=== PATIENT | female | born 1960 | race Caucasian/White ===

== ENCOUNTER 2016-09-06 15:30 | Inpatient (IN) | payer OTHER ==
--- NOTE | 2016-09-06 16:12 | PDOC ---
History of Present Illness - General History Source: Patient Exam Limitations: No Limitations - History of Present Illness Initial Comments: 09/06/16 16:32 Patient is a 56 year old female with a significant past medical history of ESRD (on HD for 15 years), hypertension, hyperlipidemia, schizophrenia, bipolar disorder and anxiety who was sent to the ED from [facility] for SOB. Patient missed her dialysis and desaturated with O2 Sat of 79. Patient was referred to [facility], but brought to [place] by mistake. Allergy - penicillin PCP - Dr. Gunter <Carrie Alston - Last Filed: 09/06/16 18:10> <Jackson Bardales - Last Filed: 09/06/16 18:24> - General Chief Complaint: Shortness of Breath Stated Complaint: Shortness of Breath Time Seen by Provider: 09/06/16 16:10 Past History <Carrie Alston - Last Filed: 09/06/16 18:10> - Past Medical History Anemia: Yes Asthma: No Cancer: No Cardiac Disorders: No CVA: No COPD: No CHF: No Dementia: No Diabetes: No Dialysis: Yes (ESRD,HD) GI Disorders: No Disorders: (PT ON DAILYSIS TIW) HTN: Yes Hypercholesterolemia: Yes Liver Disease: No Psychiatric Problems: Yes (schizophrenia) Seizures: No Thyroid Disease: No - Surgical History Abdominal Surgery: No Appendectomy: No Cardiac Surgery: No Cholecystectomy: No Lung Surgery: No Neurologic Surgery: No Orthopedic Surgery: No - Psycho/Social/Smoking Cessation Hx Anxiety: No Suicidal Ideation: No Smoking History: Never smoked Have you smoked in the past 12 months: No Information on smoking cessation initiated: No 'Breaking Loose' booklet given: 05/30/15 Hx Alcohol Use: No Drug/Substance Use Hx: No Substance Use Type: None Hx Substance Use Treatment: No <Jackson Bardales - Last Filed: 09/06/16 18:24> - Past Medical History Allergies/Adverse Reactions: Allergies Allergy/AdvReac Type Severity Reaction Status Date / Time chlorpromazine Allergy Verified 09/06/16 15:52 haloperidol [From Haldol] Allergy Verified 09/06/16 15:52 haloperidol lactate Allergy Verified 09/06/16 15:52 [From Haldol] penicillamine Allergy Verified 09/06/16 15:52 zinc Allergy Verified 09/06/16 15:52 Home Medications: Ambulatory Orders Acetaminophen [Pain Relief] 325 mg PO QID 09/06/16 Albuterol 0.083% Nebulizer Alejandra [Ventolin 0.083%] 1 neb NEB Q4H 09/06/16 Clozapine 50 mg PO BID 09/06/16 Divalproex *ER* [Depakote *ER* -] 500 mg PO HS 09/06/16 Docusate Sodium [Colace -] 100 mg PO DAILY 09/06/16 Folic Acid/Vit Bcomp,C [Dialyvite Tablet] 1 each PO DAILY 09/06/16 Ipratropium 0.02% Nebulizer [Atrovent] 1 neb NEB QID 09/06/16 Lorazepam 1 mg PO TID 09/06/16 Lorazepam [Ativan] 2 mg IM QID 09/06/16 Melatonin 3 mg PO HS 09/06/16 Pantoprazole Sodium 40 mg PO DAILY 09/06/16 Tramadol HCl 50 mg PO BID 09/06/16 Trazodone HCl 50 mg PO HS 09/06/16 Ziprasidone [Geodon] 80 mg PO BID 09/06/16 Review of Systems - Review of Systems Able to Perform ROS?: Yes Comments:: 09/06/16 16:32 CONSTITUTIONAL: No fever, no chills, no fatigue EYES: No visual changes ENT: No ear pain, no sore throat CARDIOVASCULAR: No chest pain, no palpitations RESPIRATORY: +SOB. No cough GI: No abdominal pain, no nausea, no vomiting, no constipation, no diarrhea GENITOURINARY: No dysuria, no frequency, no hematuria MUSCULOSKELETAL: No back pain, no joint pain, no myalgias SKIN: No rash NEURO: No headache <Carrie Alston - Last Filed: 09/06/16 18:10> *Physical Exam - Vital Signs Last Vital Signs Temp Pulse Resp BP Pulse Ox 97.5 F L 95 H 22 109/69 93 L 09/06/16 15:49 09/06/16 15:49 09/06/16 15:49 09/06/16 15:49 09/06/16 15:49 <Carrie Alston - Last Filed: 09/06/16 18:10> - Vital Signs Last Vital Signs Temp Pulse Resp BP Pulse Ox 97.5 F L 95 H 22 109/69 93 L 09/06/16 15:49 09/06/16 15:49 09/06/16 15:49 09/06/16 15:49 09/06/16 15:49 - Physical Exam Comments: 09/06/16 17:39 EXAMINATION CONSTITUTIONAL: Awake and alert; intermittently agitated; morbidly obese; mildly tachypneic and dyspneic HEAD: Normocephalic; atraumatic EYES: PERRL; EOM intact; + bilateral periorbital edema ENMT: External appears normal; normal oropharynx; + excoriated chin abrasion NECK: Supple; non-tender; no JVD CARD: Muffled S1, S2; no murmurs, rubs, or gallops RESP: Decreased breath sounds bilaterally due to body habitus; no wheezes, rhonchi, or rales ABD: Soft, non-distended; non-tender; no palpable organomegaly, no palpable hernias; + sacral edema EXT: +4 pitting edema to lower extremities and upper extremities b/l; diffusely tender to palpation; AV fistulas noted to the left upper extremity with a palpable thrill distally; distal pulses decreased due to edema SKIN: Warm, dry, ecchymosis to the right anterior chest; + 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 <Jackson Bardales - Last Filed: 09/06/16 18:24> ED Treatment Course - LABORATORY CBC & Chemistry Diagram: 09/06/16 16:21 09/06/16 16:21 <Carrie Alston - Last Filed: 09/06/16 18:10> - LABORATORY CBC & Chemistry Diagram: 09/06/16 16:21 09/06/16 16:21 - RADIOLOGY Radiology Studies Ordered: Category Date Time Status CHEST X-RAY PORTABLE* [RAD] Stat Radiology 09/06/16 16:10 Ordered <Jackson Bardales - Last Filed: 09/06/16 18:24> Medical Decision Making - Medical Decision Making 09/06/16 16:20 A call was placed to Dr. Holm at his service. Awaiting a call back 09/06/16 16:26 Case was discussed with Dr. Aquino. 09/06/16 18:00 A call was placed to Dr. Aquino and case was discussed. 09/06/16 18:10 Dr. Gibson was paged overhead. Dr. Romero called back and case was discussed. <Carrie Alston - Last Filed: 09/06/16 18:10> - Critical Care Time Total Critical Care Time (minutes): 50 Critical Care Statement: The care of this patient involved high complexity decision making to prevent further life threatening deterioration of the patient 's condition and/or to evalute & treat vital organ system(s) failure or risk of failure. - Medical Decision Making 09/06/16 18:21 Patient is a 56-year-old female with history of end-stage renal disease on hemodialysis, schizoaffective disorder, congestive heart failure, diabetes, who is brought in by EMS from [facility] for generalized weakness and difficulty breathing. In the ER, patient is awake and alert, tachypneic and dyspneic, initially normotensive, however mildly hypotensive afterwards, with oxygen saturation of 79-82% on room air, improving to 93% on 4 L via nasal cannula. On initial evaluation, diffuse anasarca is noted with decreased breath sounds bilaterally. Chest x-ray is of poor quality but reveals cardiomegaly, opacification of the left hemithorax and a significant right-sided pleural effusion. Bedside echocardiogram revealed no significant pericardial effusion, however bilateral pleural effusions were noted. CT of chest without contrast shows complete opacification of the left hemithorax and a large right-sided pleural effusion without a significant pericardial effusion. EKG reveals low voltage QRS complexes likely related to body habitus and pleural effusions. CBC reveals mild leukopenia and anemia. CMP reveals potassium of 4.5 and a significantly elevated BNP. Patient will require emergent dialysis due to fluid overload and hypotension. Will admit to the ICU further evaluation and treatment. Dr. Aquino of nephrology consulted and will evaluate the patient promptly. <Jackson Bardales - Last Filed: 09/06/16 18:24> *DC/Admit/Observation/Transfer - Attestations Scribe Attestion: 09/06/16 16:33 Documentation prepared by VINNIE Liu, acting as medical chemist for Jackson Bardales MD. <Carrie Alston - Last Filed: 09/06/16 18:10> - Discharge Dispostion Admit: Yes - Attestations Physician Attestion: 09/06/16 17:39 The documentation was prepared by the scribe under my direct supervision. I have reviewed the documentation which correctly represents the findings, medical decision-making and critical action taken by me. <Jackson Bardales - Last Filed: 09/06/16 18:24> Diagnosis at time of Disposition: Anasarca, Pleural effusion, ESRD (end stage renal disease) on dialysis Hypotension Qualifiers: Hypotension type: unspecified hypotension type Qualified Code(s): I95.9 - Hypotension, unspecified - Referrals Referrals: Yg Delaney [Primary Care Provider] -
[2016-09-06] MEDS ORDERED: FUROSEMIDE 40 MG/4 ML INJECTABLE VIAL IVPUSH ONE (16:47)
[2016-09-06 16:50] LABS: MCH 32.9 pg (25.7-33.7); MCHC 31.4 g/dl (32.0-36.0); MEAN CELL VOLUME 104.8 fl (80-96); MEAN PLT VOLUME 7.1 fl (7.5-11.1); PLATELET COUNT 179 K/MM3 (134-434); RDW 21.7 % (11.6-15.6); WHITE BLOOD COUNT 3.3 K/mm3 (4.0-10.0)
[2016-09-06] MEDS ORDERED: FUROSEMIDE 40 MG/4 ML INJECTABLE VIAL ONE (16:56)
[2016-09-06 17:17] LABS: ALBUMIN 2.8 g/dl (3.4-5.0); CALCIUM 9.8 mg/dL (8.5-10.1); COCKROFT - GAULT 13.447; CREATININE 6.6 mg/dL (0.55-1.02)
[2016-09-06 17:21] LABS: BILIRUBIN,TOTAL 0.4 mg/dL (0.2-1.0); TOT PROT 6.5 g/dl (6.4-8.2); TROPONIN I 0.05 ng/ml (0.00-0.05)
[2016-09-06 18:28] LABS: INR 0.94 (0.82-1.09); PROTHROMBIN TIME (PATIENT) 10.3 SEC (9.98-11.88)
--- NOTE | 2016-09-06 19:00 | CONSULT ---
Consult Consult Specialty:: Nephrology Reason for Consultation:: CALLED STAT FOR ESRD AND FLUID OVERLOAD - History of Present Illness Chief Complaint: sent in from [place] for respiratory distress History of Present Illness: Pt is a 56 year old female with pmhx of ESRD on HD, hyperlipidemia, HTN, schizophrenia, Bipolar and anxiety who was sent to the ER for shortness of breath. She is awake and her mental status is at baseline. I was called to evaluate her for urgent HD as she appeared fluid overloaded. She often refused dialysis. She complains of shortness of breath. She is a poor historian and is confused. She was recently admitted at [facility] for about 3 weeks. She denies chest pain. She denies fevers or chills. She was found to be hypotensive in the ER. She dies have history of pleural effusion that she refused to get tapped while in [facility]. She was hypoxic and required oxygen. She is asking for "Dylan and Alfonzo" candy. She says she is hungry and wants to eat. Pt is not compliant with diet and fluid restriction. 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 Cardio/Vascular: Yes: HTN, Hyperlipdemia Pulmonary: Yes: Other (pleural effusion) Renal/: Yes: Renal Failure (ESRD on HD), Hemodialysis Psych: Yes: Anxiety, Bipolar, Schizophrenia - Past Surgical History Past Surgical History: Yes: AV Fistula/Graft - Alcohol/Substance Use Hx Alcohol Use: No - Smoking History Smoking history: Never smoked Have you smoked in the past 12 months: No - Social History Usual Living Arrangement: [facility] Home Medications - Allergies Allergies/Adverse Reactions: Allergies Allergy/AdvReac Type Severity Reaction Status Date / Time chlorpromazine Allergy Verified 09/06/16 15:52 haloperidol [From Haldol] Allergy Verified 09/06/16 15:52 haloperidol lactate Allergy Verified 09/06/16 15:52 [From Haldol] penicillamine Allergy Verified 09/06/16 15:52 zinc Allergy Verified 09/06/16 15:52 - Home Medications Home Medications: Ambulatory Orders Acetaminophen [Pain Relief] 325 mg PO QID 09/06/16 Albuterol 0.083% Nebulizer Alejandra [Ventolin 0.083%] 1 neb NEB Q4H 09/06/16 Clozapine 50 mg PO BID 09/06/16 Divalproex *ER* [Depakote *ER* -] 500 mg PO HS 09/06/16 Docusate Sodium [Colace -] 100 mg PO DAILY 09/06/16 Folic Acid/Vit Bcomp,C [Dialyvite Tablet] 1 each PO DAILY 09/06/16 Ipratropium 0.02% Nebulizer [Atrovent] 1 neb NEB QID 09/06/16 Lorazepam 1 mg PO TID 09/06/16 Lorazepam [Ativan] 2 mg IM QID 09/06/16 Melatonin 3 mg PO HS 09/06/16 Pantoprazole Sodium 40 mg PO DAILY 09/06/16 Tramadol HCl 50 mg PO BID 09/06/16 Trazodone HCl 50 mg PO HS 09/06/16 Ziprasidone [Geodon] 80 mg PO BID 09/06/16 Family Disease History - Family Disease History Family History: Unable to Obtain Review of Systems Unable to obtain ROS, reason: says no to everything - Review of Systems Constitutional: reports: No Symptoms Eyes: reports: No Symptoms HENT: reports: No Symptoms Neck: reports: No Symptoms Cardiovascular: reports: Edema Respiratory: reports: Cough, SOB Gastrointestinal: reports: No Symptoms Genitourinary: reports: No Symptoms Musculoskeletal: reports: No Symptoms Neurological: reports: No Symptoms Endocrine: reports: No Symptoms Hematology/Lymphatic: reports: No Symptoms Physical Exam Vital Signs: Vital Signs Temperature 97.5 F L 09/06/16 15:49 Pulse Rate 93 H 09/06/16 18:32 Respiratory Rate 24 09/06/16 18:32 Blood Pressure 90/61 09/06/16 18:32 O2 Sat by Pulse Oximetry (%) 93 L 09/06/16 18:32 Constitutional: Yes: Anxious Eyes: Yes: Conjunctiva Clear HENT: Yes: Atraumatic Cardiovascular: Yes: S1, S2 Respiratory: Yes: Diminished, On Nasal O2 Gastrointestinal: Yes: Soft, Abdomen, Obese Renal/: Yes: Incontinence Musculoskeletal: Yes: Muscle Weakness Edema: Yes Edema: LUE: 1+, RUE: 1+, LLE: 2+, RLE: 2+ Integumentary: Yes: Venous Stasis Changes Neurological: Yes: Confusion Psychiatric: Yes: Agitated Labs: Laboratory Tests 09/06/16 09/06/16 09/06/16 16:21 16:21 16:21 WBC 3.3 L D Hgb 10.1 L D Plt Count 179 Sodium 141 Potassium 4.5 D Chloride 100 Carbon Dioxide 30 Anion Gap 11 BUN 28 H D Creatinine 6.6 H Creat Clearance w eGFR 6.52 Random Glucose 67 L D Calcium 9.8 Total Bilirubin 0.4 AST 23 Alkaline Phosphatase 86 Creatine Kinase 96 Troponin I 0.05 B-Natriuretic Peptide 80214.87 H Total Protein 6.5 Albumin 2.8 L Valproic Acid 54.967 Imaging - Results Chest X-ray: Report Reviewed (large left pleural effusion) Cat Scan: Report Reviewed (large left and moderated right pleural effusion. Right renal complex cyst) Problem List - Problems (1) Anasarca Code(s): R60.1 - GENERALIZED EDEMA (2) ESRD (end stage renal disease) on dialysis Code(s): N18.6 - END STAGE RENAL DISEASE Z99.2 - DEPENDENCE ON RENAL DIALYSIS (3) Hypotension Code(s): I95.9 - HYPOTENSION, UNSPECIFIED Qualifiers: Hypotension type: unspecified hypotension type Qualified Code(s): I95.9 - Hypotension, unspecified (4) Pleural effusion Code(s): J90 - PLEURAL EFFUSION, NOT ELSEWHERE CLASSIFIED (5) COPD (chronic obstructive pulmonary disease) Code(s): J44.9 - CHRONIC OBSTRUCTIVE PULMONARY DISEASE, UNSPECIFIED (6) Schizophrenia Code(s): F20.9 - SCHIZOPHRENIA, UNSPECIFIED (7) Bipolar 1 disorder Code(s): F31.9 - BIPOLAR DISORDER, UNSPECIFIED Assessment/Plan Impression 1. ESRD 2. fluid overload 3. complex renal cyst 4. bipolar 5. dyspnea 6. COPD 7. pleural effusion, bilateral 8. anemia 9. anasarca Plan - will arrange for urgent dialysis, called nurse to come in - admit pt to the ICU - cxr and ct reviewed - get echo - keep on tele monitor - will attempt to UF volume - may need HD tomorrow as well - resume [place] meds - case discussed with ER team - case discussed with outside wreath machine tender - renal diet, pt is not compliant with fluid restriction - can use bipap if she becomes hypoxic - will need to obtain records from [facility] pul/critical care eval - will follow pt Dr Aquino
[2016-09-06] MEDS ORDERED: HEPARIN NA (PORCINE) 5,000 UNITS/ML 1ML VIAL IVPUSH ONE (19:12)
[2016-09-06] MEDS: ALBUMIN HUMAN 25% 12.5 GM/50 ML VIAL IVPB SCH ×4 (20:00→22:12)
--- NOTE | 2016-09-06 20:21 | HP ---
Admitting History and Physical - Primary Care Physician PCP: Marek Macias - Admission Chief Complaint: sob History of Present Illness: Pt is a 56 year old female with pmhx of ESRD on HD, hyperlipidemia, HTN, schizophrenia, Bipolar and anxiety who was sent to the ER for shortness of breath. She is awake and her mental status is at baseline. I was called to evaluate her for urgent HD as she appeared fluid overloaded. She often refused dialysis. She complains of shortness of breath. She is a poor historian and is confused. She was recently admitted at [facility] for about 3 weeks. She denies chest pain. She denies fevers or chills. She was found to be hypotensive in the ER. She dies have history of pleural effusion that she refused to get tapped while in [facility]. She was hypoxic and required oxygen. She is asking for "Dylan [employer] Alfon[employer]" candy. She says she is hungry and wants to eat. Pt is not compliant with diet and fluid restriction. 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 Cardiovascular: Yes: HTN, Hyperlipdemia Pulmonary: Yes: Other (pleural effusion) Renal/: Yes: Renal Failure (ESRD on HD), Hemodialysis Psych: Yes: Anxiety, Bipolar, Schizophrenia - Past Surgical History Past Surgical History: Yes: AV Fistula/Graft - Smoking History Smoking history: Never smoked Have you smoked in the past 12 months: No - Alcohol/Substance Use Hx Alcohol Use: No <Marek Macias - Last Filed: 09/07/16 18:21> Home Medications <Dorian Peacock - Last Filed: 09/06/16 23:08> <Marek Macias - Last Filed: 09/07/16 18:21> - Allergies Allergies/Adverse Reactions: Allergies Allergy/AdvReac Type Severity Reaction Status Date / Time chlorpromazine Allergy Verified 09/06/16 15:52 haloperidol [From Haldol] Allergy Verified 09/06/16 15:52 haloperidol lactate Allergy Verified 09/06/16 15:52 [From Haldol] penicillamine Allergy Verified 09/06/16 15:52 zinc Allergy Verified 09/06/16 15:52 - Home Medications Home Medications: Ambulatory Orders Acetaminophen [Pain Relief] 325 mg PO QID 09/06/16 Albuterol 0.083% Nebulizer Alejandra [Ventolin 0.083%] 1 neb NEB Q4H 09/06/16 Clozapine 50 mg PO BID 09/06/16 Divalproex *ER* [Depakote *ER* -] 500 mg PO HS 09/06/16 Docusate Sodium [Colace -] 100 mg PO DAILY 09/06/16 Folic Acid/Vit Bcomp,C [Dialyvite Tablet] 1 each PO DAILY 09/06/16 Ipratropium 0.02% Nebulizer [Atrovent] 1 neb NEB QID 09/06/16 Lorazepam 1 mg PO TID 09/06/16 Lorazepam [Ativan] 2 mg IM QID 09/06/16 Melatonin 3 mg PO HS 09/06/16 Pantoprazole Sodium 40 mg PO DAILY 09/06/16 Tramadol HCl 50 mg PO BID 09/06/16 Trazodone HCl 50 mg PO HS 09/06/16 Ziprasidone [Geodon] 80 mg PO BID 09/06/16 Review of Systems - Review of Systems Eyes: denies: No Symptoms, Blind Spots, Blurred Vision, Double Vision, Eye Pain , Floaters, Photophobia, Recent Change in Vision, Other HENT: denies: No Symptoms, Difficult Swallowing, Ear Discharge, Ear Pain, Epistaxis, Gingival Bleeding, Hearing Loss, Mouth Swelling, Nasal Congestion, Ocular Prosthesis, Throat Pain, Toothache, Ringing in Ears, Other Cardiovascular: denies: No Symptoms, Chest Pain, Edema, Palpitations, Shortness of Breath, Other Respiratory: reports: SOB Gastrointestinal: denies: No Symptoms, Abdominal Pain, Bloating, Constipation, Diarrhea, Dysphagia, Indigestion, Melena, Nausea, Rectal Bleeding, Vomiting, Vomiting Blood, Other Neurological: denies: No Symptoms, Change in LOC, Change in Speech, Confusion, Dizziness, Headache, Incoordination, Numbness, Parasthesia, Pre-Existing Deficit , Seizure, Syncope, Tremors, Unsteady Gait, Weakness, Other <Marek Macias - Last Filed: 09/07/16 18:21> Physical Examination Vital Signs: Vital Signs Temperature 97.5 F L 09/06/16 15:49 Pulse Rate 100 H 09/06/16 21:50 Respiratory Rate 18 09/06/16 21:50 Blood Pressure 86/52 09/06/16 21:50 O2 Sat by Pulse Oximetry (%) 93 L 09/06/16 18:32 <Dorian Peacock - Last Filed: 09/06/16 23:08> Vital Signs: Vital Signs Temperature 97.5 F L 09/06/16 15:49 Pulse Rate 96 H 09/06/16 19:50 Respiratory Rate 18 09/06/16 19:50 Blood Pressure 111/73 09/06/16 19:50 O2 Sat by Pulse Oximetry (%) 93 L 09/06/16 18:32 Constitutional: Yes: No Distress HENT: Yes: Atraumatic Neck: Yes: Supple Cardiovascular: Yes: Regular Rate and Rhythm Respiratory: Yes: Rhonchi Gastrointestinal: Yes: Normal Bowel Sounds Extremities: Yes: WNL Edema: LLE: 1+, RLE: 1+ Neurological: Yes: Alert, Oriented <Marek Macias - Last Filed: 09/07/16 18:21> Problem List - Problems (1) Schizophrenia Code(s): F20.9 - SCHIZOPHRENIA, UNSPECIFIED (2) Bipolar 1 disorder Code(s): F31.9 - BIPOLAR DISORDER, UNSPECIFIED (3) COPD (chronic obstructive pulmonary disease) Code(s): J44.9 - CHRONIC OBSTRUCTIVE PULMONARY DISEASE, UNSPECIFIED (4) Pleural effusion Code(s): J90 - PLEURAL EFFUSION, NOT ELSEWHERE CLASSIFIED (5) Anasarca Code(s): R60.1 - GENERALIZED EDEMA (6) ESRD (end stage renal disease) on dialysis Code(s): N18.6 - END STAGE RENAL DISEASE Z99.2 - DEPENDENCE ON RENAL DIALYSIS <Dorian Peacock Loretta - Last Filed: 09/06/16 23:08> - Problems (1) Anasarca Assessment/Plan: pt will get hd today Code(s): R60.1 - GENERALIZED EDEMA (2) Bipolar 1 disorder Code(s): F31.9 - BIPOLAR DISORDER, UNSPECIFIED (3) ESRD (end stage renal disease) on dialysis Assessment/Plan: n hd dr casillas Code(s): N18.6 - END STAGE RENAL DISEASE Z99.2 - DEPENDENCE ON RENAL DIALYSIS (4) COPD (chronic obstructive pulmonary disease) Assessment/Plan: continue home meds'duo nebs prn Code(s): J44.9 - CHRONIC OBSTRUCTIVE PULMONARY DISEASE, UNSPECIFIED <Marek Macias - Last Filed: 09/07/16 18:21> Assessment/Plan ASSESS: This is a 56 y/o woman w/ Schizo, Bi-polar, anxiety, (non-compliant), HTN, HL, & ESRD on HD who presents now w/ gross V/o in the setting of having missed HD. PLAN: -FiO2 for an SpO2 > 92% -Nebs -HD -RENAL -Clozapine STANDING BID -Ativan STANDING TID -Depakote HS -Trazadone HS -PSYCH -BR -PPI (Renal Fail) <Dorian Peacock - Last Filed: 09/06/16 23:08> Laboratory Tests 09/06/16 09/06/16 09/06/16 16:21 16:21 16:21 WBC 3.3 L D RBC 3.06 L Hgb 10.1 L D Hct 32.1 L MCV 104.8 H MCHC 31.4 L RDW 21.7 H Plt Count 179 MPV 7.1 L Neutrophils % Y Lymphocytes % Y INR 0.94 D Sodium 141 Potassium 4.5 D Chloride 100 Carbon Dioxide 30 Anion Gap 11 BUN 28 H D Creatinine 6.6 H Creat Clearance w eGFR 6.52 Random Glucose 67 L D Calcium 9.8 Total Bilirubin 0.4 AST 23 ALT 17 D Alkaline Phosphatase 86 Creatine Kinase 96 Troponin I 0.05 B-Natriuretic Peptide 40135.87 H Total Protein 6.5 Albumin 2.8 L Valproic Acid 09/06/16 16:21 WBC RBC Hgb Hct MCV MCHC RDW Plt Count MPV Neutrophils % Lymphocytes % INR Sodium Potassium Chloride Carbon Dioxide Anion Gap BUN Creatinine Creat Clearance w eGFR Random Glucose Calcium Total Bilirubin AST ALT Alkaline Phosphatase Creatine Kinase Troponin I B-Natriuretic Peptide Total Protein Albumin Valproic Acid 54.967 Active Medications Generic Name Dose Route Start Last Admin Trade Name Freq PRN Reason Stop Dose Admin Albumin Human 12.5 gm 09/06/16 19:15 Albumin Human 25% IVPB 09/06/16 20:46 Q30M DAYNA Impression 1. ESRD 2. fluid overload 3. complex renal cyst 4. bipolar 5. dyspnea 6. COPD 7. pleural effusion, bilateral 8. anemia 9. anasarca Plan -on hd fluid restriction continue home meds dvt ppx cc time 60 min <Marek Macias - Last Filed: 09/07/16 18:21>
[2016-09-06 20:32] LABS: PLATELET ESTIMATE ADEQUATE (NORMAL)
[2016-09-06 20:33] LABS: ANISOCYTOSIS OCC
[2016-09-06] MEDS ORDERED: ALBUTEROL SO4 0.083% IH SOL 2.5 MG/3 ML VIAL.NEB. NEB PRN (21:00)
--- NOTE | 2016-09-06 21:07 | CONSULT ---
Consult Consult Specialty:: PULM / CCM Referred by:: Dr. Macias Reason for Consultation:: SOB - History of Present Illness Chief Complaint: I want Dylan and Alfonzo's!!! History of Present Illness: Ms. Lucas is a 56 y/o woman, [facility] resident, w/ a long Hx/o Schizo, Bi- polar, anxiety, (non-compliant), HTN, HL, & ESRD (on HD X 15 yrs). The pt was referred to [facility] for SOB in the setting of missing her most recent dialysis. The pt was dropped off here @ [facility] by mistake. ED eval c/w V/ O. Pt brought to ICU for HD. - History Source History Provided By: Medical Record Limitations to Obtaining History: Other (Schizo, Bi-Polar, Anxiety) - Past Medical History LEGAL AID: Yes: Dementia Cardio/Vascular: Yes: HTN, Hyperlipdemia Pulmonary: Yes: Other (pleural effusion) Renal/: Yes: Renal Failure (ESRD on HD), Hemodialysis Psych: Yes: Anxiety, Bipolar, Schizophrenia - Past Surgical History Past Surgical History: Yes: AV Fistula/Graft - Alcohol/Substance Use Hx Alcohol Use: No - Smoking History Smoking history: Never smoked Have you smoked in the past 12 months: No - Social History Usual Living Arrangement: [facility] History of Recent Travel: No Home Medications - Allergies Allergies/Adverse Reactions: Allergies Allergy/AdvReac Type Severity Reaction Status Date / Time chlorpromazine Allergy Verified 09/06/16 15:52 haloperidol [From Haldol] Allergy Verified 09/06/16 15:52 haloperidol lactate Allergy Verified 09/06/16 15:52 [From Haldol] penicillamine Allergy Verified 09/06/16 15:52 zinc Allergy Verified 09/06/16 15:52 - Home Medications Home Medications: Ambulatory Orders Acetaminophen [Pain Relief] 325 mg PO QID 09/06/16 Albuterol 0.083% Nebulizer Alejandra [Ventolin 0.083%] 1 neb NEB Q4H 09/06/16 Clozapine 50 mg PO BID 09/06/16 Divalproex *ER* [Depakote *ER* -] 500 mg PO HS 09/06/16 Docusate Sodium [Colace -] 100 mg PO DAILY 09/06/16 Folic Acid/Vit Bcomp,C [Dialyvite Tablet] 1 each PO DAILY 09/06/16 Ipratropium 0.02% Nebulizer [Atrovent] 1 neb NEB QID 09/06/16 Lorazepam 1 mg PO TID 09/06/16 Lorazepam [Ativan] 2 mg IM QID 09/06/16 Melatonin 3 mg PO HS 09/06/16 Pantoprazole Sodium 40 mg PO DAILY 09/06/16 Tramadol HCl 50 mg PO BID 09/06/16 Trazodone HCl 50 mg PO HS 09/06/16 Ziprasidone [Geodon] 80 mg PO BID 09/06/16 Family Disease History - Family Disease History Family History: Unable to Obtain (Pt is severe Schizo/Bi-Polar/Anxiety & uncooperative.) Physical Exam Vital Signs: Vital Signs Temperature 97.5 F L 09/06/16 15:49 Pulse Rate 99 H 09/06/16 20:20 Respiratory Rate 18 09/06/16 20:20 Blood Pressure 105/67 09/06/16 20:20 O2 Sat by Pulse Oximetry (%) 93 L 09/06/16 18:32 Constitutional: Yes: Anxious, Obese, Poor Hygeine Eyes: Yes: WNL, PERRL HENT: Yes: WNL, Atraumatic, Normocephalic Neck: Yes: WNL, Supple, Trachea Midline Cardiovascular: Yes: WNL, Regular Rate and Rhythm Respiratory: Yes: WNL, Diminished Gastrointestinal: Yes: WNL, Normal Bowel Sounds, Soft, Abdomen, Obese ...Rectal Exam: Yes: Deferred Renal/: Yes: WNL Breast(s): Yes: WNL Musculoskeletal: Yes: WNL Extremities: Yes: Other (l LE w/ venous stasis ulcers.) Edema: Yes Edema: LUE: 1+, RUE: 1+, LLE: 1+, RLE: 1+ Integumentary: Yes: WNL Neurological: Yes: WNL ...Motor Strength: WNL Psychiatric: Yes: WNL, Alert, Agitated Labs: CBC, BMP 09/06/16 16:21 09/06/16 16:21 Imaging - Results Chest X-ray: Image Reviewed (09/06: No ETT, no CVCs, Pulm edema w/ B/L pleural effusions L > R (My Read).) Cat Scan: Image Reviewed (CT Chest 09/06: B/L Pleural effusions L > R.) EKG: Image Reviewed (09/06: NSR in the 90's w/o ectopy, globally flattened T- waves but super low voltage QRS so difficult to read, QTc = 399ms, no acute processes (My Read).) Problem List - Problems (1) Schizophrenia Code(s): F20.9 - SCHIZOPHRENIA, UNSPECIFIED (2) Bipolar 1 disorder Code(s): F31.9 - BIPOLAR DISORDER, UNSPECIFIED (3) COPD (chronic obstructive pulmonary disease) Code(s): J44.9 - CHRONIC OBSTRUCTIVE PULMONARY DISEASE, UNSPECIFIED (4) Pleural effusion Code(s): J90 - PLEURAL EFFUSION, NOT ELSEWHERE CLASSIFIED (5) Anasarca Code(s): R60.1 - GENERALIZED EDEMA (6) ESRD (end stage renal disease) on dialysis Code(s): N18.6 - END STAGE RENAL DISEASE Z99.2 - DEPENDENCE ON RENAL DIALYSIS Assessment/Plan ASSESS: 1. ESRD 2. V/O 3. Gross anasarca 4. B/L pleural effusions 5. SOB 6. COPD 7. Schizo 8. bipolar 9. anemia PLAN: -Admit to ICU for emergent HD -Fio2@ for an SpO2 > 92% -Nebs -HD -Consider back-back HD sessions given multiple missed sessions & heavy pleaural effusions -RENAL -Repeat TTE -Clozapine BID STANDING -ATIVAN TID STANDING -Depakote HS -Trazodone HS -PSYCH -Renal Diet -BR -PPI (Renal Fail) -[facility]
[2016-09-06] MEDS ORDERED: traZODone HCL 50 MG TABLET (FP) PO SCH (22:00)
[2016-09-06] MEDS ORDERED: DIVALPROEX NA *ER* EXTEND REL 500 MG TABLET.SA (FP) PO SCH (22:00)
[2016-09-06] MEDS ORDERED: CLOZAPINE 50 MG PO SCH (22:00)
[2016-09-07 04:55] VITALS: BMI 37.0
[2016-09-07] MEDS: LORazepam 1 MG TABLET PO SCH ×4 (06:09→21:10)
[2016-09-07 07:46] LABS: MCH 33.2 pg (25.7-33.7); MCHC 32.1 g/dl (32.0-36.0); MEAN CELL VOLUME 103.6 fl (80-96); MEAN PLT VOLUME 6.4 fl (7.5-11.1); PLATELET COUNT 147 K/MM3 (134-434); RDW 22.3 % (11.6-15.6); WHITE BLOOD COUNT 3.1 K/mm3 (4.0-10.0)
[2016-09-07] MEDS ORDERED: guaiFENesin 200 MG/10 ML 10 ML UNIT-DOSE CUPS PO PRN (08:37)
--- NOTE | 2016-09-07 08:51 | PN ---
Physical Exam: SUBJECTIVE: Patient seen and examined at bedside this AM in ICU. Afebrile overnight with improved BP & oxygen saturation on NC. States her breathing is better but she still feels short of breath & has been coughing alot (without sputum discharge). Keeps asking for candy, in particular "[employer]". Otherwise states she is feeling pretty well. Denies any fever, chills, chest pain, abdominal pain or lower extremity tenderness. OBJECTIVE: Vital Signs Period Temp Pulse Resp BP Sys/Bradford Pulse Ox Last 24 Hr 98 F-98.6 F 93-104 18-24 86-132/52-78 93-94 GENERAL: Morbidly obese. Alert, awake and oriented. Anxious at times during interview when discussing returning to [place]. HEENT: Atraumatic, EOMI, PERRLA, No lymphadenopathy, moist membranes LUNGS: Severely diminished breath sounds entire left lung field; mildly diminished breath sounds right lower lobe; No wheezing or accessory muscle use. HEART: Regular rate and rhythm, S1, S2 without murmur ABDOMEN: Soft, nontender, nondistended, normoactive bowel sounds. EXTREMITIES: 1+ pulses upper and lower extremities. +1 bilateral LE edema (left> right). LLE shows venous stasis ulcers. (-) Kevin & Orozco test. NEUROLOGICAL: Cranial nerves II through XII grossly intact. Normal speech, gait not observed. PSYCH: at her baseline mental status/mood/affect SKIN: as above Laboratory Results - last 24 hr 09/07/16 07:20 WBC 3.1 L RBC 2.79 L Hgb 9.3 L Hct 28.9 L MCV 103.6 H MCHC 32.1 RDW 22.3 H Plt Count 147 MPV 6.4 L Neutrophils % Y Lymphocytes % Y Active Medications Generic Name Dose Route Start Last Admin Trade Name Freq PRN Reason Stop Dose Admin Albuterol Sulfate 1 amp 09/06/16 21:00 Ventolin 0.083% Nebulizer Soln - NEB Q4H PRN SHORT OF BREATH/WHEEZING Divalproex Sodium 500 mg 09/06/16 22:00 09/07/16 06:10 Depakote *Er* - PO Not Given HS DAYNA Docusate Sodium 100 mg 09/07/16 10:00 09/07/16 10:11 Colace - PO 100 mg DAILY [facility] Administration Guaifenesin 10 ml 09/07/16 08:37 09/07/16 10:13 Robitussin - PO 10 ml Q4H PRN Administration COUGH Lorazepam 1 mg 09/06/16 22:00 09/07/16 06:50 Ativan - PO 1 mg TID DAYNA Administration Multivitamins/Minerals/Vitamin C 1 tab 09/08/16 10:00 Tab-A-Vit - PO DAILY DAYNA Non-Formulary Medication 50 mg 09/06/16 22:00 Clozapine [Clozapine] PO BID DAY[facility] Pantoprazole Sodium 40 mg 09/07/16 10:00 09/07/16 10:11 Protonix - PO 40 mg DAILY [facility] Administration Trazodone HCl 50 mg 09/06/16 22:00 09/07/16 06:10 Desyrel - PO Not Given HS DAYNA ASSESSMENT/PLAN: Patient is a 56 year old female with PMH of ESRD on HD, HTN/HLD, Schizophrenia/ Bipolar/Anxiety (poorly compliant with ALL meds & HD appointments) from [place] who presented to ED with shortness of breath. She had been refusing HD this week s/ p a 3 week admission to [facility] for similar presentation. #ESRD in setting of noncompliance with HD -HD initiated last evening -will receive HD again today -avoid nephrotoxic meds -fluid restrict (patient has been generally non-compliant) -nephrology consult appreciated #Bilateral Pleural Effuions -related to fluid voerload due to poor compliance with HD & meds -Saturating well on 2L NC at present -keep O2 sat .92% -CXR reviewed, will f/u in AM after 2nd dialysis/ultrafiltration session -Albuterol QIDR -Robitussin #Extensive Psychiatric History: Schizophrenia, Bipolar, Anxiety -continue home meds: Depakote 500mg HS, Ativan 1mg TID, Trazodone 50mg HS, Clozapine 50mg BID -may need Psychiatry eval to optimize medications #LLE Venous stasis changes with +1 pitting edema -ordered bilateral LE duplex to r/o DVT Prophylaxis/FEN -SCD's -PPI -Fluid overloaded, no IVF need at present -monitor electrolytes -Renal Diet/Multivitamin/Colace Visit type - Emergency Visit Emergency Visit: Yes ED Registration Date: 09/06/16 Care time: The patient presented to the Emergency Department on the above date and was hospitalized for further evaluation of their emergent condition. - New Patient This patient is new to me today: Yes Date on this admission: 09/07/16 - Critical Care Critical Care patient: Yes Total Critical Care Time (in minutes): 55 Critical Care Statement: The care of this patient involved high complexity decision making to prevent further life threatening deterioration of the patient 's condition and/or to evalute & treat vital organ system(s) failure or risk of failure.
[2016-09-07 09:30] LABS: ALBUMIN 3.2 g/dl (3.4-5.0); BILIRUBIN,TOTAL 0.4 mg/dL (0.2-1.0); CALCIUM 9.6 mg/dL (8.5-10.1); COCKROFT - GAULT 18.1135; CREATININE 4.9 mg/dL (0.55-1.02); TOT PROT 6.2 g/dl (6.4-8.2)
--- NOTE | 2016-09-07 09:48 | EKG ---
Test Reason : Blood Pressure : / mmHG Vent. Rate : 096 BPM Atrial Rate : 096 BPM P-R Int : 158 ms QRS Dur : 084 ms QT Int : 316 ms P-R-T Axes : 026 021 052 degrees QTc Int : 399 ms NORMAL SINUS RHYTHM LOW VOLTAGE QRS NONSPECIFIC ST AND T WAVE ABNORMALITY ABNORMAL ECG Confirmed by MELLISSA YUNG MD ([id number]) on 09/07/2016 9:48:02 AM Referred By: Confirmed By:MELLISSA YUNG MD
[2016-09-07 09:53] LABS: PLATELET ESTIMATE SLT DECREASED (NORMAL)
[2016-09-07 09:56] LABS: ANISOCYTOSIS 2+
[2016-09-07] MEDS ORDERED: [UNRECOGNIZED DRUG - OTHER] PO SCH (10:00)
[2016-09-07] MEDS ORDERED: PANTOPRAZOLE 40 MG TABLET (FP) PO SCH (10:00)
[2016-09-07] MEDS ORDERED: DOCUSATE SODIUM 100 MG CAPSULE (FP) PO SCH (10:00)
[2016-09-07] MEDS ORDERED: VIT BCOMP C PO SCH (10:00)
[2016-09-07] MEDS ORDERED: FOLIC ACID PO SCH (10:00)
--- NOTE | 2016-09-07 11:51 | CON.CARD ---
Consult Consult Specialty:: Cardiology Reason for Consultation:: sob - History of Present Illness History of Present Illness: Patient is a 56 year old female with a significant past medical history of ESRD (on HD for 15 years), hypertension, hyperlipidemia, schizophrenia, bipolar disorder and anxiety who was sent to the ED from [facility] for SOB. Patient missed her dialysis and desaturated with O2 Sat of 79. Patient was referred to [facility], but brought to [facility] by mistake. Allergy - penicillin PCP - Dr. Gunter - Past Medical History [employer]: Yes: Dementia Cardio/Vascular: Yes: HTN, Hyperlipdemia Pulmonary: Yes: Other (pleural effusion) Renal/: Yes: Renal Failure (ESRD on HD), Hemodialysis ...: No Psych: Yes: Anxiety, Bipolar, Schizophrenia - Past Surgical History Past Surgical History: Yes: AV Fistula/Graft - Alcohol/Substance Use Hx Alcohol Use: No - Smoking History Smoking history: Never smoked Have you smoked in the past 12 months: No Aproximately how many cigarettes per day: 40 If you are a former smoker, when did you quit?: 1 year - Social History Usual Living Arrangement: Jail History of Recent Travel: No Home Medications - Allergies Allergies/Adverse Reactions: Allergies Allergy/AdvReac Type Severity Reaction Status Date / Time chlorpromazine Allergy Verified 09/06/16 15:52 haloperidol [From Haldol] Allergy Verified 09/06/16 15:52 haloperidol lactate Allergy Verified 09/06/16 15:52 [From Haldol] penicillamine Allergy Verified 09/06/16 15:52 zinc Allergy Verified 09/06/16 15:52 - Home Medications Home Medications: Ambulatory Orders Acetaminophen [Pain Relief] 325 mg PO QID 09/06/16 Albuterol 0.083% Nebulizer Alejandra [Ventolin 0.083%] 1 neb NEB Q4H 09/06/16 Clozapine 50 mg PO BID 09/06/16 Divalproex *ER* [Depakote *ER* -] 500 mg PO HS 09/06/16 Docusate Sodium [Colace -] 100 mg PO DAILY 09/06/16 Folic Acid/Vit Bcomp,C [Dialyvite Tablet] 1 each PO DAILY 09/06/16 Ipratropium 0.02% Nebulizer [Atrovent] 1 neb NEB QID 09/06/16 Lorazepam 1 mg PO TID 09/06/16 Lorazepam [Ativan] 2 mg IM QID 09/06/16 Melatonin 3 mg PO HS 09/06/16 Pantoprazole Sodium 40 mg PO DAILY 09/06/16 Tramadol HCl 50 mg PO BID 09/06/16 Trazodone HCl 50 mg PO HS 09/06/16 Ziprasidone [Geodon] 80 mg PO BID 09/06/16 Review of Systems - Review of Systems Constitutional: reports: No Symptoms Eyes: reports: No Symptoms HENT: reports: No Symptoms Neck: reports: No Symptoms Cardiovascular: reports: No Symptoms Respiratory: reports: SOB Gastrointestinal: reports: No Symptoms Genitourinary: reports: No Symptoms Breasts: reports: No Symptoms Reported Musculoskeletal: reports: No Symptoms Integumentary: reports: No Symptoms Neurological: reports: No Symptoms Endocrine: reports: No Symptoms Hematology/Lymphatic: reports: No Symptoms Psychiatric: reports: No Symptoms Vital Signs: Vital Signs Temperature 98 F 09/07/16 04:00 Pulse Rate 105 H 09/07/16 10:00 Respiratory Rate 09/07/16 10:00 Blood Pressure 74/48 09/07/16 10:00 O2 Sat by Pulse Oximetry (%) 94 L 09/07/16 09:00 Constitutional: Yes: Well Nourished, No Distress, Calm Eyes: Yes: WNL, Conjunctiva Clear, EOM Intact HENT: Yes: WNL, Atraumatic, Normocephalic Neck: Yes: WNL, Supple, Trachea Midline Respiratory: Yes: WNL, Regular, CTA Bilaterally Gastrointestinal: Yes: WNL, Normal Bowel Sounds Renal/: Yes: WNL Cardiovascular: Yes: WNL, Regular Rate and Rhythm Musculoskeletal: Yes: WNL Extremities: Yes: WNL Edema: Yes Integumentary: Yes: WNL Neurological: Yes: WNL, Alert, Oriented ...Motor Strength: WNL Psychiatric: Yes: WNL, Alert, Oriented - Other Data Labs, Other Data: CBC, BMP 09/07/16 07:20 09/07/16 07:20 INR, PTT INR 0.94 (0.82-1.09) D 09/06/16 16:21 Laboratory Tests 09/06/16 09/06/16 09/06/16 16:21 16:21 16:21 WBC 3.3 L D RBC 3.06 L Hgb 10.1 L D Hct 32.1 L MCV 104.8 H MCHC 31.4 L RDW 21.7 H Plt Count 179 MPV 7.1 L Neutrophils % 64.0 Lymphocytes % 23.0 D Monocytes % 5.0 Eosinophils % 5.0 H Band Neutrophils 3.0 Myelocytes Nucleated RBCs 1 H Differential Comment Platelet Estimate Adequate Anisocytosis Occ Macrocytosis Rare INR 0.94 D Sodium 141 Potassium 4.5 D Chloride 100 Carbon Dioxide 30 Anion Gap 11 BUN 28 H D Creatinine 6.6 H Creat Clearance w eGFR 6.52 Random Glucose 67 L D Calcium 9.8 Total Bilirubin 0.4 AST 23 ALT 17 D Alkaline Phosphatase 86 Creatine Kinase 96 Troponin I 0.05 B-Natriuretic Peptide 03101.87 H Total Protein 6.5 Albumin 2.8 L Valproic Acid Hepatitis C Antibody 09/06/16 09/06/16 09/07/16 16:21 21:22 07:20 WBC 3.1 L RBC 2.79 L Hgb 9.3 L Hct 28.9 L MCV 103.6 H MCHC 32.1 RDW 22.3 H Plt Count 147 MPV 6.4 L Neutrophils % 62.0 Lymphocytes % 19.0 Monocytes % 12.0 H D Eosinophils % 4.0 Band Neutrophils 1.0 D Myelocytes 2 Nucleated RBCs Differential Comment Manual diff done Platelet Estimate Slt decreased Anisocytosis 2+ Macrocytosis 2+ INR Sodium Potassium Chloride Carbon Dioxide Anion Gap BUN Creatinine Creat Clearance w eGFR Random Glucose Calcium Total Bilirubin AST ALT Alkaline Phosphatase Creatine Kinase Troponin I B-Natriuretic Peptide Total Protein Albumin Valproic Acid 54.967 Hepatitis C Antibody Cancelled 09/07/16 07:20 WBC RBC Hgb Hct MCV MCHC RDW Plt Count MPV Neutrophils % Lymphocytes % Monocytes % Eosinophils % Band Neutrophils Myelocytes Nucleated RBCs Differential Comment Platelet Estimate Anisocytosis Macrocytosis INR Sodium 142 Potassium 3.6 Chloride 101 Carbon Dioxide 32 Anion Gap 9 BUN 20 H D Creatinine 4.9 H D Creat Clearance w eGFR 9.20 Random Glucose 94 D Calcium 9.6 Total Bilirubin 0.4 AST 16 D ALT 13 D Alkaline Phosphatase 70 Creatine Kinase Troponin I B-Natriuretic Peptide Total Protein 6.2 L Albumin 3.2 L Valproic Acid Hepatitis C Antibody Imaging - Results Chest X-ray: Image Reviewed (b pleural effusion) EKG: Image Reviewed (sr wnl) Problem List - Problems (1) Anasarca Code(s): R60.1 - GENERALIZED EDEMA (2) Bipolar 1 disorder Code(s): F31.9 - BIPOLAR DISORDER, UNSPECIFIED (3) ESRD (end stage renal disease) on dialysis Code(s): N18.6 - END STAGE RENAL DISEASE Z99.2 - DEPENDENCE ON RENAL DIALYSIS (4) Hypotension Code(s): I95.9 - HYPOTENSION, UNSPECIFIED Qualifiers: Hypotension type: unspecified hypotension type Qualified Code(s): I95.9 - Hypotension, unspecified (5) Pleural effusion Code(s): J90 - PLEURAL EFFUSION, NOT ELSEWHERE CLASSIFIED (6) Abdominal pain Code(s): R10.9 - UNSPECIFIED ABDOMINAL PAIN Qualifiers: Abdominal location: unspecified location Qualified Code(s): R10.9 - Unspecified abdominal pain (7) COPD (chronic obstructive pulmonary disease) Code(s): J44.9 - CHRONIC OBSTRUCTIVE PULMONARY DISEASE, UNSPECIFIED (8) Schizophrenia Code(s): F20.9 - SCHIZOPHRENIA, UNSPECIFIED Assessment/Plan esrd chf schizophrenia anxiety fluid overload pleural effusion anemia plan ICU care HD for volume removal cc time spent reviewing the chart, examining the patient and reviewing the test - 90 min
[2016-09-07] MEDS ORDERED: HEPARIN NA (PORCINE) 5,000 UNITS/ML 1ML VIAL IVPUSH ONE (13:27)
--- NOTE | 2016-09-07 13:32 | PN ---
Progress Note, Physician History of Present Illness: Pt seen and examined at bedside. She is awake. She agrees to go for another HD session today. - Current Medication List Current Medications: Active Medications Albumin Human (Albumin Human 25%) 12.5 gm IVPB Q30M [facility] Albuterol Sulfate (Ventolin 0.083% Nebulizer Soln -) 1 amp NEB Q4H PRN PRN Reason: SHORT OF BREATH/WHEEZING Divalproex Sodium (Depakote *Er* -) 500 mg PO HS [facility] Last Admin: 09/07/16 06:10 Dose: Not Given Docusate Sodium (Colace -) 100 mg PO DAILY [facility] Last Admin: 09/07/16 10:11 Dose: 100 mg Guaifenesin (Robitussin -) 10 ml PO Q4H PRN PRN Reason: COUGH Last Admin: 09/07/16 10:13 Dose: 10 ml Heparin Sodium (Porcine) (Heparin -) 1,000 unit IVPUSH ONCE ONE Stop: 09/07/16 13:28 Lorazepam (Ativan -) 1 mg PO TID [facility] Last Admin: 09/07/16 06:50 Dose: 1 mg Melatonin (Melatonin) 3 mg PO [facility] Multivitamins/Minerals/Vitamin C (Tab-A-Vit -) 1 tab PO DAILY [facility] Non-Formulary Medication (Clozapine [Clozapine]) 50 mg PO BID [facility] Pantoprazole Sodium (Protonix -) 40 mg PO DAILY [facility] Last Admin: 09/07/16 10:11 Dose: 40 mg Trazodone HCl (Desyrel -) 50 mg PO [facility] Last Admin: 09/07/16 06:10 Dose: Not Given - Objective Vital Signs: Vital Signs Temperature 98 F 09/07/16 04:00 Pulse Rate 105 H 09/07/16 10:00 Respiratory Rate 09/07/16 10:00 Blood Pressure 74/48 09/07/16 10:00 O2 Sat by Pulse Oximetry (%) 94 L 09/07/16 09:00 Constitutional: Yes: Anxious Eyes: Yes: Conjunctiva Clear HENT: Yes: Atraumatic Cardiovascular: Yes: S1, S2 Respiratory: Yes: Diminished, On Nasal O2 Gastrointestinal: Yes: Soft, Abdomen, Obese Genitourinary: Yes: Incontinence Musculoskeletal: Yes: WNL Edema: Yes Edema: LLE: 2+, RLE: 2+ Integumentary: Yes: Venous Stasis Changes Neurological: Yes: Confusion Psychiatric: Yes: Agitated Labs: CBC, BMP 09/07/16 07:20 09/07/16 07:20 INR, PTT INR 0.94 (0.82-1.09) D 09/06/16 16:21 - ....Imaging Chest X-ray: Image Reviewed Problem List - Problems (1) Anasarca Code(s): R60.1 - GENERALIZED EDEMA (2) ESRD (end stage renal disease) on dialysis Code(s): N18.6 - END STAGE RENAL DISEASE Z99.2 - DEPENDENCE ON RENAL DIALYSIS (3) Hypotension Code(s): I95.9 - HYPOTENSION, UNSPECIFIED Qualifiers: Hypotension type: unspecified hypotension type Qualified Code(s): I95.9 - Hypotension, unspecified (4) Pleural effusion Code(s): J90 - PLEURAL EFFUSION, NOT ELSEWHERE CLASSIFIED (5) COPD (chronic obstructive pulmonary disease) Code(s): J44.9 - CHRONIC OBSTRUCTIVE PULMONARY DISEASE, UNSPECIFIED (6) Schizophrenia Code(s): F20.9 - SCHIZOPHRENIA, UNSPECIFIED (7) Bipolar 1 disorder Code(s): F31.9 - BIPOLAR DISORDER, UNSPECIFIED Assessment/Plan Current Medications Generic Name Dose Route Start Last Admin Trade Name Freq PRN Reason Stop Dose Admin Albumin Human 12.5 gm 09/07/16 13:30 Albumin Human 25% IVPB Q30M [facility] Albuterol Sulfate 1 amp 09/06/16 21:00 Ventolin 0.083% Nebulizer Soln - NEB Q4H PRN SHORT OF BREATH/WHEEZING Divalproex Sodium 500 mg 09/06/16 22:00 09/07/16 06:10 Depakote *Er* - PO Not Given HS DAYNA Docusate Sodium 100 mg 09/07/16 10:00 09/07/16 10:11 Colace - PO 100 mg DAILY [facility] Administration Guaifenesin 10 ml 09/07/16 08:37 09/07/16 10:13 Robitussin - PO 10 ml Q4H PRN Administration COUGH Heparin Sodium (Porcine) 1,000 unit 09/07/16 13:27 Heparin - IVPUSH 09/07/16 13:28 ONCE ONE Lorazepam 1 mg 09/06/16 22:00 09/07/16 06:50 Ativan - PO 1 mg TID DAY[facility] Administration Melatonin 3 mg 09/07/16 22:00 Melatonin PO HS [facility] Multivitamins/Minerals/Vitamin C 1 tab 09/08/16 10:00 Tab-A-Vit - PO DAILY [facility] Non-Formulary Medication 50 mg 09/06/16 22:00 Clozapine [Clozapine] PO BID [facility] Pantoprazole Sodium 40 mg 09/07/16 10:00 09/07/16 10:11 Protonix - PO 40 mg DAILY [facility] Administration Trazodone HCl 50 mg 09/06/16 22:00 09/07/16 06:10 Desyrel - PO Not Given HS [facility] Impression 1. ESRD 2. fluid overload 3. complex renal cyst 4. bipolar 5. dyspnea 6. COPD 7. pleural effusion, bilateral 8. anemia 9. anasarca Plan - will dialyze again today for volume - repeat labs in am - pulmonary eval for effusions - pts behavior has been a problem as outpt - cont [place] meds - monitor BP - renal diet with fluid restriction - will need to obtain records from [facility] - pulm/critical care eval - will follow pt Dr Aquino
--- NOTE | 2016-09-07 15:02 | PN ---
Teaching Attending Note Name of Resident: Neel Cruz ATTENDING PHYSICIAN STATEMENT I saw and evaluated the patient. I reviewed the resident's note and discussed the case with the resident. I agree with the resident's findings and plan as documented. SUBJECTIVE: Patient seen and examined in the ICU. Awake and alert. Denies CP or OSB. S/P acute HD yesterday and scheduled for HD today. Intake & Output 09/04/16 09/05/16 09/06/16 09/07/16 23:59 23:59 23:59 23:59 Intake Total 150 500 Balance 150 500 Weight 196 lb 195 lb Last Vital Signs Temp Pulse Resp BP Pulse Ox 98 F 105 H 17 74/48 94 L 09/07/16 04:00 09/07/16 10:00 09/07/16 10:00 09/07/16 10:00 09/07/16 09:00 Active Medications Albumin Human (Albumin Human 25%) 12.5 gm IVPB Q30M [facility] Albuterol Sulfate (Ventolin 0.083% Nebulizer Soln -) 1 amp NEB Q4H PRN PRN Reason: SHORT OF BREATH/WHEEZING Divalproex Sodium (Depakote *Er* -) 500 mg PO HS [facility] Last Admin: 09/07/16 06:10 Dose: Not Given Docusate Sodium (Colace -) 100 mg PO DAILY [facility] Last Admin: 09/07/16 10:11 Dose: 100 mg Guaifenesin (Robitussin -) 10 ml PO Q4H PRN PRN Reason: COUGH Last Admin: 09/07/16 10:13 Dose: 10 ml Heparin Sodium (Porcine) (Heparin -) 1,000 unit IVPUSH ONCE ONE Stop: 09/07/16 13:28 Lorazepam (Ativan -) 1 mg PO TID [facility] Last Admin: 09/07/16 06:50 Dose: 1 mg Melatonin (Melatonin) 3 mg PO HS [facility] Multivitamins/Minerals/Vitamin C (Tab-A-Vit -) 1 tab PO DAILY [facility] Non-Formulary Medication (Clozapine [Clozapine]) 50 mg PO BID [facility] Pantoprazole Sodium (Protonix -) 40 mg PO DAILY [facility] Last Admin: 09/07/16 10:11 Dose: 40 mg Trazodone HCl (Desyrel -) 50 mg PO HS [facility] Last Admin: 09/07/16 06:10 Dose: Not Given Constitutional: Yes: Awake and alert, blunted affect, Obese Eyes: Yes: (-) Pallor HENT: Yes: WNL, Atraumatic, Normocephalic Neck: Yes: WNL, Supple, Trachea Midline Cardiovascular: Yes: WNL, Regular Rate and Rhythm Respiratory: Yes: WNL, Diminished Gastrointestinal: Yes: WNL, Normal Bowel Sounds, Soft, Abdomen, Obese ...Rectal Exam: Yes: Deferred Renal/: Yes: WNL Breast(s): Yes: WNL Musculoskeletal: Yes: WNL Extremities: Yes: Other (l LE w/ venous stasis ulcers.) Edema: Yes Edema: LUE: 1+, RUE: 1+, LLE: 1+, RLE: 1+ Integumentary: Yes: WNL Neurological: Yes: WNL ...Motor Strength: WNL Psychiatric: Yes: Blunted affect Labs: Laboratory Results - last 24 hr 09/06/16 09/06/16 09/06/16 16:21 16:21 16:21 WBC 3.3 L D RBC 3.06 L Hgb 10.1 L D Hct 32.1 L MCV 104.8 H MCHC 31.4 L RDW 21.7 H Plt Count 179 MPV 7.1 L Neutrophils % 64.0 Lymphocytes % 23.0 D Monocytes % 5.0 Eosinophils % 5.0 H Band Neutrophils 3.0 Myelocytes Nucleated RBCs 1 H Differential Comment Platelet Estimate Adequate Anisocytosis Occ Macrocytosis Rare INR 0.94 D Sodium 141 Potassium 4.5 D Chloride 100 Carbon Dioxide 30 Anion Gap 11 BUN 28 H D Creatinine 6.6 H Creat Clearance w eGFR 6.52 Random Glucose 67 L D Calcium 9.8 Total Bilirubin 0.4 AST 23 ALT 17 D Alkaline Phosphatase 86 Creatine Kinase 96 Troponin I 0.05 B-Natriuretic Peptide 64065.87 H Total Protein 6.5 Albumin 2.8 L Valproic Acid Hepatitis C Antibody 09/06/16 09/06/16 09/07/16 16:21 21:22 07:20 WBC 3.1 L RBC 2.79 L Hgb 9.3 L Hct 28.9 L MCV 103.6 H MCHC 32.1 RDW 22.3 H Plt Count 147 MPV 6.4 L Neutrophils % 62.0 Lymphocytes % 19.0 Monocytes % 12.0 H D Eosinophils % 4.0 Band Neutrophils 1.0 D Myelocytes 2 Nucleated RBCs Differential Comment Manual diff done Platelet Estimate Slt decreased Anisocytosis 2+ Macrocytosis 2+ INR Sodium Potassium Chloride Carbon Dioxide Anion Gap BUN Creatinine Creat Clearance w eGFR Random Glucose Calcium Total Bilirubin AST ALT Alkaline Phosphatase Creatine Kinase Troponin I B-Natriuretic Peptide Total Protein Albumin Valproic Acid 54.967 Hepatitis C Antibody Cancelled 09/07/16 07:20 WBC RBC Hgb Hct MCV MCHC RDW Plt Count MPV Neutrophils % Lymphocytes % Monocytes % Eosinophils % Band Neutrophils Myelocytes Nucleated RBCs Differential Comment Platelet Estimate Anisocytosis Macrocytosis INR Sodium 142 Potassium 3.6 Chloride 101 Carbon Dioxide 32 Anion Gap 9 BUN 20 H D Creatinine 4.9 H D Creat Clearance w eGFR 9.20 Random Glucose 94 D Calcium 9.6 Total Bilirubin 0.4 AST 16 D ALT 13 D Alkaline Phosphatase 70 Creatine Kinase Troponin I B-Natriuretic Peptide Total Protein 6.2 L Albumin 3.2 L Valproic Acid Hepatitis C Antibody Problem List - Problems (1) Schizophrenia Code(s): F20.9 - SCHIZOPHRENIA, UNSPECIFIED (2) Bipolar 1 disorder Code(s): F31.9 - BIPOLAR DISORDER, UNSPECIFIED (3) COPD (chronic obstructive pulmonary disease) Code(s): J44.9 - CHRONIC OBSTRUCTIVE PULMONARY DISEASE, UNSPECIFIED (4) Pleural effusion Code(s): J90 - PLEURAL EFFUSION, NOT ELSEWHERE CLASSIFIED (5) Anasarca Code(s): R60.1 - GENERALIZED EDEMA (6) ESRD (end stage renal disease) on dialysis Code(s): N18.6 - END STAGE RENAL DISEASE Z99.2 - DEPENDENCE ON RENAL DIALYSIS Assessment/Plan SOB COPD Anemia PLAN: HD as BP tolerates BD TX Depakote Trazodone GI prophylaxis VTE prophylaxis 4W/4S monitoring PO as tolerated Cardiology evaluation to address abnormal ECHO findings Dr Pollard Critical care time spent in reviewing chart, evaluating patient and formulating plan 35 min
[2016-09-07] MEDS: ALBUMIN HUMAN 25% 12.5 GM/50 ML VIAL IVPB SCH ×4 (16:30→18:00)
--- NOTE | 2016-09-07 18:23 | PN ---
Progress Note, Physician History of Present Illness: stable - Current Medication List Current Medications: Active Medications Albumin Human (Albumin Human 25%) 12.5 gm IVPB Q30M [facility] Last Admin: 09/07/16 18:00 Dose: 12.5 gm Albuterol Sulfate (Ventolin 0.083% Nebulizer Soln -) 1 amp NEB Q4H PRN PRN Reason: SHORT OF BREATH/WHEEZING Divalproex Sodium (Depakote *Er* -) 500 mg PO [facility] Last Admin: 09/07/16 06:10 Dose: Not Given Docusate Sodium (Colace -) 100 mg PO DAILY [facility] Last Admin: 09/07/16 10:11 Dose: 100 mg Guaifenesin (Robitussin -) 10 ml PO Q4H PRN PRN Reason: COUGH Last Admin: 09/07/16 10:13 Dose: 10 ml Lorazepam (Ativan -) 1 mg PO TID [facility] Last Admin: 09/07/16 16:44 Dose: Not Given Melatonin (Melatonin) 3 mg PO [facility] Multivitamins/Minerals/Vitamin C (Tab-A-Vit -) 1 tab PO DAILY [facility] Non-Formulary Medication (Clozapine [Clozapine]) 50 mg PO BID [facility] Pantoprazole Sodium (Protonix -) 40 mg PO DAILY [facility] Last Admin: 09/07/16 10:11 Dose: 40 mg Trazodone HCl (Desyrel -) 50 mg PO [facility] Last Admin: 09/07/16 06:10 Dose: Not Given - Objective Vital Signs: Vital Signs Temperature 98 F 09/07/16 16:00 Pulse Rate 88 09/07/16 18:00 Respiratory Rate 18 09/07/16 18:00 Blood Pressure 87/54 09/07/16 18:00 O2 Sat by Pulse Oximetry (%) 94 L 09/07/16 09:00 Constitutional: Yes: No Distress HENT: Yes: Atraumatic Neck: Yes: Supple Cardiovascular: Yes: Regular Rate and Rhythm Respiratory: Yes: CTA Bilaterally Gastrointestinal: Yes: Normal Bowel Sounds Extremities: Yes: WNL Neurological: Yes: Alert, Oriented Labs: CBC, BMP 09/07/16 07:20 09/07/16 07:20 INR, PTT INR 0.94 (0.82-1.09) D 09/06/16 16:21 Problem List - Problems (1) Anasarca Assessment/Plan: pt will get hd today Code(s): R60.1 - GENERALIZED EDEMA (2) Bipolar 1 disorder Code(s): F31.9 - BIPOLAR DISORDER, UNSPECIFIED (3) ESRD (end stage renal disease) on dialysis Assessment/Plan: n hd dr casillas Code(s): N18.6 - END STAGE RENAL DISEASE Z99.2 - DEPENDENCE ON RENAL DIALYSIS (4) COPD (chronic obstructive pulmonary disease) Assessment/Plan: continue home meds'duo nebs prn Code(s): J44.9 - CHRONIC OBSTRUCTIVE PULMONARY DISEASE, UNSPECIFIED
[2016-09-07] MEDS ORDERED: PT OWN MED DRAWER 7, Y5N ONE (21:09)
[2016-09-07] MEDS: DIVALPROEX NA *ER* EXTEND REL 500 MG TABLET.SA (FP) PO SCH (21:11)
[2016-09-07] MEDS: guaiFENesin 200 MG/10 ML 10 ML UNIT-DOSE CUPS PO PRN (21:11)
[2016-09-07] MEDS: traZODone HCL 50 MG TABLET (FP) PO SCH (21:11)
[2016-09-07] MEDS ORDERED: MELATONIN 1 MG TABLET PO SCH (22:00)
[2016-09-08] MEDS: MELATONIN 1 MG TABLET PO SCH ×2 (02:29→21:09)
[2016-09-08 06:09] LABS: HEP B SURFACE AB Reactive (.)
[2016-09-08] MEDS: LORazepam 1 MG TABLET PO SCH ×3 (06:18→21:08)
[2016-09-08 07:12] LABS: MCH 32.9 pg (25.7-33.7); MCHC 31.6 g/dl (32.0-36.0); MEAN PLT VOLUME 6.6 fl (7.5-11.1); PLATELET COUNT 132 K/MM3 (134-434); RDW 22.6 % (11.6-15.6); WHITE BLOOD COUNT 2.9 K/mm3 (4.0-10.0)
[2016-09-08 07:50] LABS: ALBUMIN 3.1 g/dl (3.4-5.0); BILIRUBIN,TOTAL 0.4 mg/dL (0.2-1.0); COCKROFT - GAULT 23.3495; CREATININE 3.8 mg/dL (0.55-1.02); TOT PROT 6.1 g/dl (6.4-8.2)
[2016-09-08 08:11] LABS: METAMYELOCYTE 1 % (0-2)
[2016-09-08 08:12] LABS: PLATELET ESTIMATE ADEQUATE (NORMAL)
[2016-09-08] MEDS ORDERED: MULTIVITAMINS (DAILY MVI) TABLET (FP) PO SCH (10:00)
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
[2016-09-08] MEDS ORDERED: PT OWN MED DRAWER 7, Y5N ONE ×2 (11:37→20:53)
[2016-09-08] MEDS: DOCUSATE SODIUM 100 MG CAPSULE (FP) PO SCH (13:45)
[2016-09-08] MEDS: MULTIVITAMINS (DAILY MVI) TABLET (FP) PO SCH (13:47)
[2016-09-08] MEDS: PANTOPRAZOLE 40 MG TABLET (FP) PO SCH (13:47)
--- NOTE | 2016-09-08 13:52 | PN ---
Progress Note, Physician History of Present Illness: Renal f/u Pt was dialyzed yesterday She is presently out of the ICU and 1:1 observation Not agitated at this time - Current Medication List Current Medications: Active Medications Albuterol Sulfate (Ventolin 0.083% Nebulizer Soln -) 1 amp NEB Q4H PRN PRN Reason: SHORT OF BREATH/WHEEZING Divalproex Sodium (Depakote *Er* -) 500 mg PO HS [facility] Last Admin: 09/07/16 21:11 Dose: 500 mg Docusate Sodium (Colace -) 100 mg PO DAILY [facility] Last Admin: 09/08/16 13:45 Dose: 100 mg Guaifenesin (Robitussin -) 10 ml PO Q4H PRN PRN Reason: COUGH Last Admin: 09/07/16 21:11 Dose: 10 ml Lorazepam (Ativan -) 1 mg PO TID [facility] Last Admin: 09/08/16 13:44 Dose: 1 mg Melatonin (Melatonin) 3 mg PO HS [facility] Last Admin: 09/08/16 02:29 Dose: Not Given Multivitamins/Minerals/Vitamin C (Tab-A-Vit -) 1 tab PO DAILY [facility] Last Admin: 09/08/16 13:47 Dose: 1 tab Non-Formulary Medication (Clozapine [Clozapine]) 50 mg PO BID [facility] Pantoprazole Sodium (Protonix -) 40 mg PO DAILY [facility] Last Admin: 09/08/16 13:47 Dose: 40 mg Trazodone HCl (Desyrel -) 50 mg PO [facility] Last Admin: 09/07/16 21:11 Dose: 50 mg - Objective Vital Signs: Vital Signs Temperature 98.6 F 09/08/16 09:30 Pulse Rate 92 H 09/08/16 09:30 Respiratory Rate 18 09/08/16 09:30 Blood Pressure 98/52 09/08/16 09:30 O2 Sat by Pulse Oximetry (%) 98 09/08/16 09:30 Constitutional: Yes: No Distress Cardiovascular: Yes: S1, S2 Respiratory: Yes: Other (Decreased BS at bases) Gastrointestinal: Yes: Soft. No: Tenderness, Rebound Edema: LLE: 1+, RLE: 1+ Labs: CBC, BMP 09/08/16 05:35 09/08/16 05:35 INR, PTT INR 0.94 (0.82-1.09) D 09/06/16 16:21 Assessment/Plan Impression 1. ESRD 2. Fluid overload improved with HD 3. Complex renal cyst 4. Bipolar 5. COPD 6. anemia Plan - Next HD 09/10 - Renal diet with fluid restriction - Psychiatry f/u Dr Malagon
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
[2016-09-08] MEDS: traZODone HCL 50 MG TABLET (FP) PO SCH (21:08)
[2016-09-08] MEDS: DIVALPROEX NA *ER* EXTEND REL 500 MG TABLET.SA (FP) PO SCH (21:08)
[2016-09-08] MEDS ORDERED: risperiDONE 2 MG TABLET PO SCH ×2 (22:00)
[2016-09-09 00:06] LABS: HSV 2 DNA. Negative (Negative)
[2016-09-09] MEDS: LORazepam 1 MG TABLET PO SCH ×3 (06:48→22:11)
[2016-09-09] MEDS: PANTOPRAZOLE 40 MG TABLET (FP) PO SCH (09:12)
[2016-09-09] MEDS: DOCUSATE SODIUM 100 MG CAPSULE (FP) PO SCH (09:12)
[2016-09-09] MEDS: risperiDONE 1 MG TABLET (FP) PO SCH ×2 (09:13→22:11)
[2016-09-09] MEDS: MULTIVITAMINS (DAILY MVI) TABLET (FP) PO SCH (09:13)
[2016-09-09] MEDS ORDERED: EPOETIN ALFA 2,000 UNITS/1 ML VIAL IVPUSH ONE (10:00)
[2016-09-09] MEDS ORDERED: HEPARIN NA (PORCINE) 5,000 UNITS/ML 1ML VIAL IVPUSH ONE (10:00)
--- NOTE | 2016-09-09 11:07 | PN ---
Progress Note, Physician History of Present Illness: -stable - Current Medication List Current Medications: Active Medications Albuterol Sulfate (Ventolin 0.083% Nebulizer Soln -) 1 amp NEB Q4H PRN PRN Reason: SHORT OF BREATH/WHEEZING Clozapine (Clozaril -) 50 mg PO BID [facility] Divalproex Sodium (Depakote *Er* -) 500 mg PO [facility] Last Admin: 09/08/16 21:08 Dose: 500 mg Docusate Sodium (Colace -) 100 mg PO DAILY [facility] Last Admin: 09/09/16 09:12 Dose: 100 mg Guaifenesin (Robitussin -) 10 ml PO Q4H PRN PRN Reason: COUGH Last Admin: 09/07/16 21:11 Dose: 10 ml Lorazepam (Ativan -) 1 mg PO TID [facility] Last Admin: 09/09/16 06:48 Dose: 1 mg Melatonin (Melatonin) 3 mg PO [facility] Last Admin: 09/08/16 21:09 Dose: 3 mg Multivitamins/Minerals/Vitamin C (Tab-A-Vit -) 1 tab PO DAILY [facility] Last Admin: 09/09/16 09:13 Dose: 1 tab Pantoprazole Sodium (Protonix -) 40 mg PO DAILY [facility] Last Admin: 09/09/16 09:12 Dose: 40 mg Risperidone (Risperdal -) 2 mg PO BID [facility] Last Admin: 09/09/16 09:13 Dose: 2 mg Trazodone HCl (Desyrel -) 50 mg PO [facility] Last Admin: 09/08/16 21:08 Dose: 50 mg - Objective Vital Signs: Vital Signs Temperature 97.8 F 09/09/16 02:35 Pulse Rate 91 H 09/09/16 06:00 Respiratory Rate 20 09/09/16 06:00 Blood Pressure 108/54 09/09/16 06:00 O2 Sat by Pulse Oximetry (%) 95 09/08/16 21:00 Constitutional: Yes: No Distress HENT: Yes: Atraumatic Neck: Yes: Supple Cardiovascular: Yes: Regular Rate and Rhythm Respiratory: Yes: CTA Bilaterally Gastrointestinal: Yes: Normal Bowel Sounds Extremities: Yes: WNL Edema: LLE: 1+, RLE: 1+ Neurological: Yes: Alert, Oriented Labs: CBC, BMP 09/08/16 05:35 09/08/16 05:35 INR, PTT INR 0.94 (0.82-1.09) D 09/06/16 16:21 Problem List - Problems (1) Anasarca Assessment/Plan: on HD Code(s): R60.1 - GENERALIZED EDEMA (2) Bipolar 1 disorder Code(s): F31.9 - BIPOLAR DISORDER, UNSPECIFIED (3) ESRD (end stage renal disease) on dialysis Assessment/Plan: n hd dr casillas Code(s): N18.6 - END STAGE RENAL DISEASE Z99.2 - DEPENDENCE ON RENAL DIALYSIS (4) COPD (chronic obstructive pulmonary disease) Assessment/Plan: continue home meds'duo nebs prn Code(s): J44.9 - CHRONIC OBSTRUCTIVE PULMONARY DISEASE, UNSPECIFIED (5) Schizophrenia Assessment/Plan: pt is on 1:1 seen by psych need in pt psych Code(s): F20.9 - SCHIZOPHRENIA, UNSPECIFIED Assessment/Plan Impression 1. ESRD 2. fluid overload 3. complex renal cyst 4. bipolar 5. dyspnea 6. COPD 7. pleural effusion, bilateral 8. anemia 9. anasarca Plan -on hd fluid restriction continue home meds psych consult noted..on risperdal now [place] [facility]
--- NOTE | 2016-09-09 11:59 | PN ---
Progress Note, Physician History of Present Illness: Renal f/u Pt lying flat in bed and is in no distress She was seen by psychiatry and remains on 1:1 observation Risperdal was added - Current Medication List Current Medications: Active Medications Albuterol Sulfate (Ventolin 0.083% Nebulizer Soln -) 1 amp NEB Q4H PRN PRN Reason: SHORT OF BREATH/WHEEZING Clozapine (Clozaril -) 50 mg PO BID [facility] Divalproex Sodium (Depakote *Er* -) 500 mg PO [facility] Last Admin: 09/08/16 21:08 Dose: 500 mg Docusate Sodium (Colace -) 100 mg PO DAILY [facility] Last Admin: 09/09/16 09:12 Dose: 100 mg Guaifenesin (Robitussin -) 10 ml PO Q4H PRN PRN Reason: COUGH Last Admin: 09/07/16 21:11 Dose: 10 ml Lorazepam (Ativan -) 1 mg PO TID [facility] Last Admin: 09/09/16 06:48 Dose: 1 mg Melatonin (Melatonin) 3 mg PO [facility] Last Admin: 09/08/16 21:09 Dose: 3 mg Multivitamins/Minerals/Vitamin C (Tab-A-Vit -) 1 tab PO DAILY [facility] Last Admin: 09/09/16 09:13 Dose: 1 tab Pantoprazole Sodium (Protonix -) 40 mg PO DAILY [facility] Last Admin: 09/09/16 09:12 Dose: 40 mg Risperidone (Risperdal -) 2 mg PO BID [facility] Last Admin: 09/09/16 09:13 Dose: 2 mg Trazodone HCl (Desyrel -) 50 mg PO [facility] Last Admin: 09/08/16 21:08 Dose: 50 mg - Objective Vital Signs: Vital Signs Temperature 97.8 F 09/09/16 02:35 Pulse Rate 91 H 09/09/16 06:00 Respiratory Rate 20 09/09/16 06:00 Blood Pressure 108/54 09/09/16 06:00 O2 Sat by Pulse Oximetry (%) 95 09/08/16 21:00 Constitutional: Yes: No Distress Cardiovascular: Yes: S1, S2 Respiratory: Yes: CTA Bilaterally, Other (Decreased bs at bases) Gastrointestinal: Yes: Soft. No: Tenderness, Rebound Extremities: Yes: Other (AVG in LUE with thrill) Edema: Yes Labs: CBC, BMP 09/08/16 05:35 09/08/16 05:35 INR, PTT INR 0.94 (0.82-1.09) D 09/06/16 16:21 Assessment/Plan Impression 1. ESRD 2. Fluid overload improved with HD 3. Complex renal cyst 4. Bipolar 5. COPD 6. Anemia Plan - Next HD 09/10- orders written Dr Malagon
[2016-09-09] MEDS: cloZAPine 25 MG TABLET PO SCH ×2 (12:17→22:11)
--- NOTE | 2016-09-09 16:25 | EKG ---
Test Reason : Blood Pressure : / mmHG Vent. Rate : 100 BPM Atrial Rate : 100 BPM P-R Int : 178 ms QRS Dur : 102 ms QT Int : 362 ms P-R-T Axes : 054 075 070 degrees QTc Int : 466 ms NORMAL SINUS RHYTHM LOW VOLTAGE QRS NONSPECIFIC T WAVE ABNORMALITY PROLONGED QT ABNORMAL ECG WHEN COMPARED WITH ECG OF 06-SEP-2016 16:34, QT HAS LENGTHENED Confirmed by MICHELLE EDDY, JULY ([id number]) on 09/09/2016 4:25:01 PM Referred By: Marie SALGADO Confirmed By:JULY MARTINEZ MD
[2016-09-09] MEDS: guaiFENesin 200 MG/10 ML 10 ML UNIT-DOSE CUPS PO PRN (16:54)
[2016-09-09] MEDS ORDERED: PT OWN MED DRAWER 7, Y5N ONE (22:06)
[2016-09-09] MEDS: MELATONIN 1 MG TABLET PO SCH (22:11)
[2016-09-09] MEDS: traZODone HCL 50 MG TABLET (FP) PO SCH (22:11)
[2016-09-09] MEDS: DIVALPROEX NA *ER* EXTEND REL 500 MG TABLET.SA (FP) PO SCH (22:11)
--- NOTE | 2016-09-10 02:40 | PN ---
Progress Note, Physician Chief Complaint: Pt alert; again claims over and over to have been poisoned by her family. Occasional sharp chest pain that lasts a second when she coughs. History of Present Illness: Patient is a 56 year old white female with a significant past medical history of ESRD (on HD for 15 years), hypertension, hyperlipidemia, schizophrenia, bipolar disorder and anxiety who was sent to the ED from [facility] for SOB. Patient missed her dialysis and desaturated with O2 Sat of 79. Patient was referred to [facility] (psychiatric unit available), but brought to [place] by mistake. Allergy - penicillin PCP - Dr. Gunter - Current Medication List Current Medications: Active Medications Albuterol Sulfate (Ventolin 0.083% Nebulizer Soln -) 1 amp NEB Q4H PRN PRN Reason: SHORT OF BREATH/WHEEZING Clozapine (Clozaril -) 50 mg PO BID [facility] Last Admin: 09/09/16 22:11 Dose: 50 mg Divalproex Sodium (Depakote *Er* -) 500 mg PO HS [facility] Last Admin: 09/09/16 22:11 Dose: 500 mg Docusate Sodium (Colace -) 100 mg PO DAILY [facility] Last Admin: 09/09/16 09:12 Dose: 100 mg Epoetin Asif (Epogen -) 2,000 units IVPUSH ONCE ONE Stop: 09/09/16 12:02 Guaifenesin (Robitussin -) 10 ml PO Q4H PRN PRN Reason: COUGH Last Admin: 09/09/16 16:54 Dose: 10 ml Heparin Sodium (Porcine) (Heparin -) 1,000 unit IVPUSH ONCE ONE Stop: 09/09/16 12:02 Lorazepam (Ativan -) 1 mg PO TID [facility] Last Admin: 09/09/16 22:11 Dose: 1 mg Melatonin (Melatonin) 3 mg PO HS [facility] Last Admin: 09/09/16 22:11 Dose: 3 mg Multivitamins/Minerals/Vitamin C (Tab-A-Vit -) 1 tab PO DAILY [facility] Last Admin: 09/09/16 09:13 Dose: 1 tab Pantoprazole Sodium (Protonix -) 40 mg PO DAILY [facility] Last Admin: 09/09/16 09:12 Dose: 40 mg Risperidone (Risperdal -) 2 mg PO BID [facility] Last Admin: 09/09/16 22:11 Dose: 2 mg Trazodone HCl (Desyrel -) 50 mg PO HS [facility] Last Admin: 09/09/16 22:11 Dose: 50 mg - Objective Vital Signs: Vital Signs Temperature 99.2 F 09/09/16 20:46 Pulse Rate 102 H 09/09/16 20:46 Respiratory Rate 20 09/09/16 20:46 Blood Pressure 95/55 09/09/16 20:46 O2 Sat by Pulse Oximetry (%) 93 L 09/09/16 20:04 Constitutional: Yes: Anxious, Mild Distress Eyes: Yes: WNL HENT: Yes: WNL Neck: Yes: WNL Cardiovascular: Yes: S1, S2 Respiratory: Yes: Regular Gastrointestinal: Yes: Soft ...Rectal Exam: Yes: Deferred Genitourinary: No: Anuria Musculoskeletal: Yes: Muscle Weakness Extremities: Yes: Cool Edema: No Peripheral Pulses WNL: Yes Integumentary: Yes: WNL Neurological: Yes: Alert Psychiatric: Yes: Other Labs: CBC, BMP 09/08/16 05:35 09/08/16 05:35 INR, PTT INR 0.94 (0.82-1.09) D 09/06/16 16:21 - ....Imaging EKG: Image Reviewed (NSR; prolonged QTc) Problem List - Problems (1) Bipolar 1 disorder Code(s): F31.9 - BIPOLAR DISORDER, UNSPECIFIED (2) ESRD (end stage renal disease) on dialysis Assessment/Plan: for hemodialysis in am. Code(s): N18.6 - END STAGE RENAL DISEASE Z99.2 - DEPENDENCE ON RENAL DIALYSIS (3) Pleural effusion Code(s): J90 - PLEURAL EFFUSION, NOT ELSEWHERE CLASSIFIED (4) COPD (chronic obstructive pulmonary disease) Code(s): J44.9 - CHRONIC OBSTRUCTIVE PULMONARY DISEASE, UNSPECIFIED (5) Schizophrenia Assessment/Plan: F/u with psychiatrist. Code(s): F20.9 - SCHIZOPHRENIA, UNSPECIFIED (6) HTN (hypertension) Code(s): I10 - ESSENTIAL (PRIMARY) HYPERTENSION (7) GERD (gastroesophageal reflux disease) Assessment/Plan: Unless contraindicated, recommend changing PPI (Pantoprazole) to another class and agent (e.g. ranitidine) because of the former's potential adverse cardiac and/or cerebrovascular effects. Code(s): K21.9 - GASTRO-ESOPHAGEAL REFLUX DISEASE WITHOUT ESOPHAGITIS (8) [place] cardiac risk >20% in next 10 years Assessment/Plan: F/u lipids and TSH. F/u records from [facility] regarding prior stress MIBI. Code(s): Z91.89 - OT PERSONAL RISK FACTORS, NOT ELSEWHERE CLASSIFIED (9) Sedentary lifestyle Code(s): Z91.89 - [facility] PERSONAL RISK FACTORS, NOT ELSEWHERE CLASSIFIED (10) Pancytopenia Assessment/Plan: F/u with hematology. Code(s): D61.818 - OTHER PANCYTOPENIA (11) Prolonged Q-T interval on ECG Assessment/Plan: serial EKGs; may need to adjust medications, particularly psychiatric. Code(s): R94.31 - ABNORMAL ELECTROCARDIOGRAM [ECG] [EKG] (12) Diastolic CHF Assessment/Plan: F/u CXR. Borderline hypotension; pancytopenia. ECHO results noted: density in LA, on MV. F/u clinically; f/u cultures. Code(s): I50.30 - UNSPECIFIED DIASTOLIC (CONGESTIVE) HEART FAILURE
[2016-09-10] MEDS: LORazepam 1 MG TABLET PO SCH ×3 (06:22→21:19)
[2016-09-10] MEDS: DOCUSATE SODIUM 100 MG CAPSULE (FP) PO SCH (09:49)
[2016-09-10] MEDS: PANTOPRAZOLE 40 MG TABLET (FP) PO SCH (09:49)
[2016-09-10] MEDS: risperiDONE 1 MG TABLET (FP) PO SCH ×2 (09:49→21:21)
[2016-09-10] MEDS: MULTIVITAMINS (DAILY MVI) TABLET (FP) PO SCH (09:50)
[2016-09-10] MEDS ORDERED: EPOETIN ALFA 2,000 UNITS/1 ML VIAL IVPUSH ONE (10:00)
[2016-09-10] MEDS: cloZAPine 25 MG TABLET PO SCH ×2 (10:16→21:19)
[2016-09-10 11:15] LABS: MCH 33.3 pg (25.7-33.7); MCHC 31.9 g/dl (32.0-36.0); MEAN CELL VOLUME 104.2 fl (80-96); MEAN PLT VOLUME 6.7 fl (7.5-11.1); PLATELET COUNT 113 K/MM3 (134-434); RDW 21.8 % (11.6-15.6); WHITE BLOOD COUNT 3.1 K/mm3 (4.0-10.0)
--- NOTE | 2016-09-10 11:50 | PN ---
Progress Note, Physician History of Present Illness: pulmonary alert,on dialysis,-resp distress - Current Medication List Current Medications: Active Medications Albuterol Sulfate (Ventolin 0.083% Nebulizer Soln -) 1 amp NEB Q4H PRN PRN Reason: SHORT OF BREATH/WHEEZING Clozapine (Clozaril -) 50 mg PO BID [facility] Last Admin: 09/10/16 10:16 Dose: 50 mg Divalproex Sodium (Depakote *Er* -) 500 mg PO [facility] Last Admin: 09/09/16 22:11 Dose: 500 mg Docusate Sodium (Colace -) 100 mg PO DAILY [facility] Last Admin: 09/10/16 09:49 Dose: 100 mg Guaifenesin (Robitussin -) 10 ml PO Q4H PRN PRN Reason: COUGH Last Admin: 09/09/16 16:54 Dose: 10 ml Lorazepam (Ativan -) 1 mg PO TID [facility] Last Admin: 09/10/16 06:22 Dose: 1 mg Melatonin (Melatonin) 3 mg PO [facility] Last Admin: 09/09/16 22:11 Dose: 3 mg Multivitamins/Minerals/Vitamin C (Tab-A-Vit -) 1 tab PO DAILY [facility] Last Admin: 09/10/16 09:50 Dose: 1 tab Pantoprazole Sodium (Protonix -) 40 mg PO DAILY [facility] Last Admin: 09/10/16 09:49 Dose: 40 mg Risperidone (Risperdal -) 2 mg PO BID [facility] Last Admin: 09/10/16 09:49 Dose: 2 mg Trazodone HCl (Desyrel -) 50 mg PO [facility] Last Admin: 09/09/16 22:11 Dose: 50 mg - Objective Vital Signs: Vital Signs Temperature 98.5 F 09/10/16 10:00 Pulse Rate 89 09/10/16 10:00 Respiratory Rate 18 09/10/16 10:00 Blood Pressure 90/55 09/10/16 10:00 O2 Sat by Pulse Oximetry (%) 94 L 09/10/16 09:00 Constitutional: Yes: Well Nourished, Calm Eyes: Yes: WNL HENT: Yes: WNL Neck: Yes: WNL Cardiovascular: Yes: Regular Rate and Rhythm, S1, S2 Respiratory: Yes: Dullness Gastrointestinal: Yes: Normal Bowel Sounds, Soft Extremities: Yes: WNL Edema: Yes Labs: CBC, BMP 09/10/16 09:15 INR, PTT INR 0.94 (0.82-1.09) D 09/06/16 16:21 - ....Imaging Chest X-ray: Report Reviewed, Image Reviewed Problem List - Problems (1) COPD (chronic obstructive pulmonary disease) Code(s): J44.9 - CHRONIC OBSTRUCTIVE PULMONARY DISEASE, UNSPECIFIED Assessment/Plan Problem List - Problems (1) Schizophrenia Code(s): F20.9 - SCHIZOPHRENIA, UNSPECIFIED (2) Bipolar 1 disorder Code(s): F31.9 - BIPOLAR DISORDER, UNSPECIFIED (3) COPD (chronic obstructive pulmonary disease) Code(s): J44.9 - CHRONIC OBSTRUCTIVE PULMONARY DISEASE, UNSPECIFIED (4) Pleural effusion Code(s): J90 - PLEURAL EFFUSION, NOT ELSEWHERE CLASSIFIED (5) Anasarca Code(s): R60.1 - GENERALIZED EDEMA (6) ESRD (end stage renal disease) on dialysis Code(s): N18.6 - END STAGE RENAL DISEASE Z99.2 - DEPENDENCE ON RENAL DIALYSIS Assessment/Plan SOB COPD Anemia Bilateral pleural effusions L>R ESRD on HD PLAN: HD as BP tolerates BD TX Depakote Trazodone GI prophylaxis VTE prophylaxiis Consider thoracentesis if pt consents DR COFFEY
[2016-09-10 11:52] LABS: ALBUMIN 2.9 g/dl (3.4-5.0); CALCIUM 9.9 mg/dL (8.5-10.1)
[2016-09-10 12:00] LABS: BILIRUBIN,TOTAL 0.5 mg/dL (0.2-1.0); COCKROFT - GAULT 14.79; PHOSPHOROUS 5.5 mg/dL (2.5-4.9)
--- NOTE | 2016-09-10 13:32 | PN ---
Progress Note, Physician History of Present Illness: Patient is a 56 year old female with a significant past medical history of ESRD (on HD for 15 years), hypertension, hyperlipidemia, schizophrenia, bipolar disorder and anxiety who was sent to the ED from [facility] for SOB. Patient missed her dialysis and desaturated with O2 Sat of 79. Patient was referred to [facility], but brought to [place] by mistake. Allergy - penicillin PCP - Dr. Gunter - Current Medication List Current Medications: Active Medications Albuterol Sulfate (Ventolin 0.083% Nebulizer Soln -) 1 amp NEB Q4H PRN PRN Reason: SHORT OF BREATH/WHEEZING Clozapine (Clozaril -) [address] [facility] Last Admin: 09/10/16 10:16 Dose: 50 mg Divalproex Sodium (Depakote *Er* -) [address] [facility] Last Admin: 09/09/16 22:11 Dose: 500 mg Docusate Sodium (Colace -) [address] [facility] Last Admin: 09/10/16 09:49 Dose: 100 mg Guaifenesin (Robitussin -) 10 ml PO Q4H PRN PRN Reason: COUGH Last Admin: 09/09/16 16:54 Dose: 10 ml Lorazepam (Ativan -) [address] [facility] Last Admin: 09/10/16 06:22 Dose: 1 mg Melatonin (Melatonin) [address] [facility] Last Admin: 09/09/16 22:11 Dose: 3 mg Multivitamins/Minerals/Vitamin C (Tab-A-Vit -) [address] [facility] Last Admin: 09/10/16 09:50 Dose: 1 tab Pantoprazole Sodium (Protonix -) [address] [facility] Last Admin: 09/10/16 09:49 Dose: 40 mg Risperidone (Risperdal -) [address] [facility] Last Admin: 09/10/16 09:49 Dose: 2 mg Trazodone HCl (Desyrel -) [address] [facility] Last Admin: 09/09/16 22:11 Dose: 50 mg - Objective Vital Signs: Vital Signs Temperature 98.2 F 09/10/16 10:10 Pulse Rate 89 09/10/16 13:15 Respiratory Rate 18 09/10/16 13:15 Blood Pressure 79/38 09/10/16 13:15 O2 Sat by Pulse Oximetry (%) 94 L 09/10/16 09:00 Eyes: Yes: WNL, Conjunctiva Clear, EOM Intact HENT: Yes: WNL, Atraumatic, Normocephalic Neck: Yes: WNL, Supple, Trachea Midline Cardiovascular: Yes: WNL, Regular Rate and Rhythm Respiratory: Yes: WNL, Regular, CTA Bilaterally Gastrointestinal: Yes: WNL, Normal Bowel Sounds Genitourinary: Yes: WNL Musculoskeletal: Yes: WNL Extremities: Yes: WNL Edema: No Integumentary: Yes: WNL Neurological: Yes: WNL, Alert, Oriented ...Motor Strength: WNL Psychiatric: Yes: WNL Labs: CBC, BMP 09/10/16 09:15 09/10/16 09:15 INR, PTT INR 0.94 (0.82-1.09) D 09/06/16 16:21 Problem List - Problems (1) Anasarca Code(s): R60.1 - GENERALIZED EDEMA (2) Bipolar 1 disorder Code(s): F31.9 - BIPOLAR DISORDER, UNSPECIFIED (3) ESRD (end stage renal disease) on dialysis Code(s): N18.6 - END STAGE RENAL DISEASE Z99.2 - DEPENDENCE ON RENAL DIALYSIS (4) Hypotension Code(s): I95.9 - HYPOTENSION, UNSPECIFIED Qualifiers: Hypotension type: unspecified hypotension type Qualified Code(s): I95.9 - Hypotension, unspecified (5) Pleural effusion Code(s): J90 - PLEURAL EFFUSION, NOT ELSEWHERE CLASSIFIED (6) Abdominal pain Code(s): R10.9 - UNSPECIFIED ABDOMINAL PAIN Qualifiers: Abdominal location: unspecified location Qualified Code(s): R10.9 - Unspecified abdominal pain (7) COPD (chronic obstructive pulmonary disease) Code(s): J44.9 - CHRONIC OBSTRUCTIVE PULMONARY DISEASE, UNSPECIFIED (8) Schizophrenia Code(s): F20.9 - SCHIZOPHRENIA, UNSPECIFIED Assessment/Plan - Problems (1) Bipolar 1 disorder Code(s): F31.9 - BIPOLAR DISORDER, UNSPECIFIED (2) ESRD (end stage renal disease) on dialysis Assessment/Plan: for hemodialysis in am. Code(s): N18.6 - END STAGE RENAL DISEASE Z99.2 - DEPENDENCE ON RENAL DIALYSIS (3) Pleural effusion Code(s): J90 - PLEURAL EFFUSION, NOT ELSEWHERE CLASSIFIED (4) COPD (chronic obstructive pulmonary disease) Code(s): J44.9 - CHRONIC OBSTRUCTIVE PULMONARY DISEASE, UNSPECIFIED (5) Schizophrenia Assessment/Plan: F/u with psychiatrist. Code(s): F20.9 - SCHIZOPHRENIA, UNSPECIFIED (6) HTN (hypertension) Code(s): I10 - ESSENTIAL (PRIMARY) HYPERTENSION (7) GERD (gastroesophageal reflux disease) Assessment/Plan: Unless contraindicated, recommend changing PPI (Pantoprazole) to another class and agent (e.g. ranitidine) because of the former's potential adverse cardiac and/or cerebrovascular effects. Code(s): K21.9 - GASTRO-ESOPHAGEAL REFLUX DISEASE WITHOUT ESOPHAGITIS (8) [place] cardiac risk >20% in next 10 years Assessment/Plan: F/u lipids and TSH. F/u records from [facility] regarding prior stress MIBI. Code(s): Z91.89 - OT PERSONAL RISK FACTORS, NOT ELSEWHERE CLASSIFIED (9) Sedentary lifestyle Code(s): Z91.89 - OT PERSONAL RISK FACTORS, NOT ELSEWHERE CLASSIFIED (10) Pancytopenia Assessment/Plan: F/u with hematology. Code(s): D61.818 - OTHER PANCYTOPENIA (11) Prolonged Q-T interval on ECG Assessment/Plan: serial EKGs; may need to adjust medications, particularly psychiatric. Code(s): R94.31 - ABNORMAL ELECTROCARDIOGRAM [ECG] [EKG] (12) Diastolic CHF Assessment/Plan: F/u CXR. Borderline hypotension; pancytopenia. ECHO results noted: density in LA, on MV. F/u clinically; f/u cultures. Code(s): I50.30 - UNSPECIFIED DIASTOLIC (CONGESTIVE) HEART FAILURE
--- NOTE | 2016-09-10 16:00 | PN ---
Progress Note, Physician History of Present Illness: Pt seen and examined at bedside. She is awake and appears comfortable. She is currently getting HD. - Current Medication List Current Medications: Active Medications Albuterol Sulfate (Ventolin 0.083% Nebulizer Soln -) 1 amp NEB Q4H PRN PRN Reason: SHORT OF BREATH/WHEEZING Clozapine (Clozaril -) 50 mg PO BID [facility] Last Admin: 09/10/16 10:16 Dose: 50 mg Divalproex Sodium (Depakote *Er* -) 500 mg PO [facility] Last Admin: 09/09/16 22:11 Dose: 500 mg Docusate Sodium (Colace -) 100 mg PO DAILY [facility]S [facility] Last Admin: 09/10/16 09:49 Dose: 100 mg Guaifenesin (Robitussin -) 10 ml PO Q4H PRN PRN Reason: COUGH Last Admin: 09/09/16 16:54 Dose: 10 ml Lorazepam (Ativan -) 1 mg PO TID [facility]S [facility] Last Admin: 09/10/16 14:30 Dose: 1 mg Melatonin (Melatonin) 3 mg PO [facility] Last Admin: 09/09/16 22:11 Dose: 3 mg Multivitamins/Minerals/Vitamin C (Tab-A-Vit -) 1 tab PO DAILY [facility] B[facility]S [facility] Last Admin: 09/10/16 09:50 Dose: 1 tab Pantoprazole Sodium (Protonix -) 40 mg PO DAILY [facility] Last Admin: 09/10/16 09:49 Dose: 40 mg Risperidone (Risperdal -) 2 mg PO BID [facility]S [facility] Last Admin: 09/10/16 09:49 Dose: 2 mg Trazodone HCl (Desyrel -) 50 mg PO [facility] Last Admin: 09/09/16 22:11 Dose: 50 mg - Objective Vital Signs: Vital Signs Temperature 98 F 09/10/16 14:00 Pulse Rate 88 09/10/16 14:30 Respiratory Rate 18 09/10/16 14:30 Blood Pressure 98/45 09/10/16 14:30 O2 Sat by Pulse Oximetry (%) 94 L 09/10/16 09:00 Constitutional: Yes: Anxious Eyes: Yes: Conjunctiva Clear HENT: Yes: Atraumatic Cardiovascular: Yes: S1, S2 Respiratory: Yes: CTA Bilaterally Gastrointestinal: Yes: Soft, Abdomen, Obese Genitourinary: Yes: WNL Musculoskeletal: Yes: WNL Edema: Yes Edema: LLE: 2+, RLE: 1+ Neurological: Yes: Confusion Psychiatric: Yes: Oriented Labs: CBC, BMP 09/10/16 09:15 09/10/16 09:15 INR, PTT INR 0.94 (0.82-1.09) D 09/06/16 16:21 Problem List - Problems (1) Anasarca Code(s): R60.1 - GENERALIZED EDEMA (2) ESRD (end stage renal disease) on dialysis Code(s): N18.6 - END STAGE RENAL DISEASE Z99.2 - DEPENDENCE ON RENAL DIALYSIS (3) Hypotension Code(s): I95.9 - HYPOTENSION, UNSPECIFIED Qualifiers: Hypotension type: unspecified hypotension type Qualified Code(s): I95.9 - Hypotension, unspecified (4) Pleural effusion Code(s): J90 - PLEURAL EFFUSION, NOT ELSEWHERE CLASSIFIED (5) COPD (chronic obstructive pulmonary disease) Code(s): J44.9 - CHRONIC OBSTRUCTIVE PULMONARY DISEASE, UNSPECIFIED (6) Schizophrenia Code(s): F20.9 - SCHIZOPHRENIA, UNSPECIFIED (7) Bipolar 1 disorder Code(s): F31.9 - BIPOLAR DISORDER, UNSPECIFIED Assessment/Plan Current Medications Generic Name Dose Route Start Last Admin Trade Name Freq PRN Reason Stop Dose Admin Albuterol Sulfate 1 amp 09/07/16 19:52 Ventolin 0.083% Nebulizer Soln - NEB Q4H PRN SHORT OF BREATH/WHEEZING Clozapine 50 mg 09/09/16 11:00 09/10/16 10:16 Clozaril - PO 50 mg BID [facility] Administration Divalproex Sodium 500 mg 09/07/16 22:00 09/09/16 22:11 Depakote *Er* - PO 500 mg HS [facility] Administration Docusate Sodium 100 mg 09/08/16 10:00 09/10/16 09:49 Colace - PO 100 mg DAILY [facility] Administration Guaifenesin 10 ml 09/07/16 19:52 09/09/16 16:54 Robitussin - PO 10 ml Q4H PRN Administration COUGH Lorazepam 1 mg 09/07/16 22:00 09/10/16 14:30 Ativan - PO 1 mg TID [facility] Administration Melatonin 3 mg 09/07/16 22:00 09/09/16 22:11 Melatonin PO 3 mg HS [facility] Administration Multivitamins/Minerals/Vitamin C 1 tab 09/08/16 10:00 09/10/16 09:50 Tab-A-Vit - PO 1 tab DAILY [facility] Administration Pantoprazole Sodium 40 mg 09/08/16 10:00 09/10/16 09:49 Protonix - PO 40 mg DAILY [facility] Administration Risperidone 2 mg 09/09/16 10:00 09/10/16 09:49 Risperdal - PO 2 mg BID [facility] Administration Trazodone HCl 50 mg 09/07/16 22:00 09/09/16 22:11 Desyrel - PO 50 mg HS [facility] Administration Impression 1. ESRD 2. fluid overload 3. complex renal cyst 4. bipolar 5. dyspnea 6. COPD 7. pleural effusion, bilateral 8. anemia 9. anasarca Plan - pt tolerated HD today - removed 3 liters on HD - next session scheduled for Saturday - cont current meds - will follow pt Dr Aquino
[2016-09-10] MEDS: guaiFENesin 200 MG/10 ML 10 ML UNIT-DOSE CUPS PO PRN (16:12)
[2016-09-10] MEDS: MELATONIN 1 MG TABLET PO SCH (21:18)
[2016-09-10] MEDS: DIVALPROEX NA *ER* EXTEND REL 500 MG TABLET.SA (FP) PO SCH (21:20)
[2016-09-10] MEDS: traZODone HCL 50 MG TABLET (FP) PO SCH (21:21)
[2016-09-11] MEDS: LORazepam 1 MG TABLET PO SCH ×3 (06:20→22:32)
[2016-09-11] MEDS ORDERED: PT OWN MED DRAWER 7, Y5N ONE ×2 (08:04→21:26)
[2016-09-11] MEDS: MULTIVITAMINS (DAILY MVI) TABLET (FP) PO SCH (09:46)
[2016-09-11] MEDS: PANTOPRAZOLE 40 MG TABLET (FP) PO SCH (09:47)
[2016-09-11] MEDS: DOCUSATE SODIUM 100 MG CAPSULE (FP) PO SCH (09:47)
[2016-09-11] MEDS: risperiDONE 1 MG TABLET (FP) PO SCH ×2 (09:48→22:32)
[2016-09-11] MEDS: cloZAPine 25 MG TABLET PO SCH ×2 (09:48→22:33)
--- NOTE | 2016-09-11 10:38 | PN ---
Progress Note, Physician History of Present Illness: pulmonary alert,c/o sob,refuses to use nasal o2 - Current Medication List Current Medications: Active Medications Albuterol Sulfate (Ventolin 0.083% Nebulizer Soln -) 1 amp NEB Q4H PRN PRN Reason: SHORT OF BREATH/WHEEZING Clozapine (Clozaril -) 50 mg PO BID [facility] Last Admin: 09/11/16 09:48 Dose: 50 mg Divalproex Sodium (Depakote *Er* -) 500 mg PO [facility] Last Admin: 09/10/16 21:20 Dose: 500 mg Docusate Sodium (Colace -) 100 mg PO DAILY [facility] Last Admin: 09/11/16 09:47 Dose: 100 mg Guaifenesin (Robitussin -) 10 ml PO Q4H PRN PRN Reason: COUGH Last Admin: 09/10/16 16:12 Dose: 10 ml Lorazepam (Ativan -) 1 mg PO TID [facility] Last Admin: 09/11/16 06:20 Dose: 1 mg Melatonin (Melatonin) 3 mg PO [facility] Last Admin: 09/10/16 21:18 Dose: 3 mg Multivitamins/Minerals/Vitamin C (Tab-A-Vit -) 1 tab PO DAILY [facility] Last Admin: 09/11/16 09:46 Dose: 1 tab Pantoprazole Sodium (Protonix -) 40 mg PO DAILY [facility] Last Admin: 09/11/16 09:47 Dose: 40 mg Risperidone (Risperdal -) 2 mg PO BID [facility] Last Admin: 09/11/16 09:48 Dose: 2 mg Trazodone HCl (Desyrel -) 50 mg PO [facility] Last Admin: 09/10/16 21:21 Dose: 50 mg - Objective Vital Signs: Vital Signs Temperature 97.8 F 09/11/16 07:24 Pulse Rate 104 H 09/11/16 07:24 Respiratory Rate 18 09/11/16 07:30 Blood Pressure 97/52 09/11/16 07:24 O2 Sat by Pulse Oximetry (%) 94 L 09/11/16 07:30 Constitutional: Yes: Well Nourished, Calm Eyes: Yes: WNL HENT: Yes: WNL Neck: Yes: WNL Cardiovascular: Yes: Regular Rate and Rhythm, S1, S2 Respiratory: Yes: Diminished (poor inspiratory effort) Gastrointestinal: Yes: Normal Bowel Sounds, Soft Extremities: Yes: WNL Edema: No Labs: CBC, BMP 09/10/16 09:15 09/10/16 09:15 INR, PTT INR 0.94 (0.82-1.09) D 09/06/16 16:21 Problem List - Problems (1) COPD (chronic obstructive pulmonary disease) Code(s): J44.9 - CHRONIC OBSTRUCTIVE PULMONARY DISEASE, UNSPECIFIED Assessment/Plan Problem List - Problems (1) Schizophrenia Code(s): F20.9 - SCHIZOPHRENIA, UNSPECIFIED (2) Bipolar 1 disorder Code(s): F31.9 - BIPOLAR DISORDER, UNSPECIFIED (3) COPD (chronic obstructive pulmonary disease) Code(s): J44.9 - CHRONIC OBSTRUCTIVE PULMONARY DISEASE, UNSPECIFIED (4) Pleural effusion Code(s): J90 - PLEURAL EFFUSION, NOT ELSEWHERE CLASSIFIED (5) Anasarca Code(s): R60.1 - GENERALIZED EDEMA (6) ESRD (end stage renal disease) on dialysis Code(s): N18.6 - END STAGE RENAL DISEASE Z99.2 - DEPENDENCE ON RENAL DIALYSIS Assessment/Plan SOB COPD Anemia Bilateral pleural effusions L>R ESRD on HD PLAN: HD as BP tolerates BD TX Depakote Trazodone GI prophylaxis VTE prophylaxiis f/u chest x-ray Consider thoracentesis if pt consents DR COFFEY
[2016-09-11] MEDS: ALBUTEROL SO4 0.083% IH SOL 2.5 MG/3 ML VIAL.NEB. NEB PRN ×2 (12:09→15:59)
[2016-09-11] MEDS: guaiFENesin 200 MG/10 ML 10 ML UNIT-DOSE CUPS PO PRN (14:04)
--- NOTE | 2016-09-11 14:06 | PN ---
Progress Note, Physician History of Present Illness: Pt seen and examined at bedside. She is awake and appears comfortable. - Current Medication List Current Medications: Active Medications Albuterol Sulfate (Ventolin 0.083% Nebulizer Soln -) 1 amp NEB Q4H PRN PRN Reason: SHORT OF BREATH/WHEEZING Last Admin: 09/11/16 12:09 Dose: 1 amp Clozapine (Clozaril -) 50 mg PO BID [facility] Last Admin: 09/11/16 09:48 Dose: 50 mg Divalproex Sodium (Depakote *Er* -) 500 mg PO [facility] Last Admin: 09/10/16 21:20 Dose: 500 mg Docusate Sodium (Colace -) 100 mg PO DAILY [facility] Last Admin: 09/11/16 09:47 Dose: 100 mg Guaifenesin (Robitussin -) 10 ml PO Q4H PRN PRN Reason: COUGH Last Admin: 09/10/16 16:12 Dose: 10 ml Lorazepam (Ativan -) 1 mg PO TID [facility] Last Admin: 09/11/16 06:20 Dose: 1 mg Melatonin (Melatonin) 3 mg PO [facility] Last Admin: 09/10/16 21:18 Dose: 3 mg Multivitamins/Minerals/Vitamin C (Tab-A-Vit -) 1 tab PO DAILY [facility] Last Admin: 09/11/16 09:46 Dose: 1 tab Pantoprazole Sodium (Protonix -) 40 mg PO DAILY [facility] Last Admin: 09/11/16 09:47 Dose: 40 mg Risperidone (Risperdal -) 2 mg PO BID [facility] Last Admin: 09/11/16 09:48 Dose: 2 mg Trazodone HCl (Desyrel -) 50 mg PO [facility] Last Admin: 09/10/16 21:21 Dose: 50 mg - Objective Vital Signs: Vital Signs Temperature 97.8 F 09/11/16 07:24 Pulse Rate 104 H 09/11/16 07:24 Respiratory Rate 18 09/11/16 07:30 Blood Pressure 97/52 09/11/16 07:24 O2 Sat by Pulse Oximetry (%) 94 L 09/11/16 07:30 Constitutional: Yes: Calm Eyes: Yes: Conjunctiva Clear HENT: Yes: Atraumatic Neck: Yes: Supple Cardiovascular: Yes: S1, S2 Respiratory: Yes: CTA Bilaterally Gastrointestinal: Yes: Soft, Abdomen, Obese Genitourinary: Yes: WNL Edema: Yes Edema: LLE: 2+, RLE: 1+ Neurological: Yes: Oriented Psychiatric: Yes: Oriented Labs: CBC, BMP 09/10/16 09:15 09/10/16 09:15 INR, PTT INR 0.94 (0.82-1.09) D 09/06/16 16:21 Problem List - Problems (1) Anasarca Code(s): R60.1 - GENERALIZED EDEMA (2) ESRD (end stage renal disease) on dialysis Code(s): N18.6 - END STAGE RENAL DISEASE Z99.2 - DEPENDENCE ON RENAL DIALYSIS (3) Hypotension Code(s): I95.9 - HYPOTENSION, UNSPECIFIED Qualifiers: Hypotension type: unspecified hypotension type Qualified Code(s): I95.9 - Hypotension, unspecified (4) Pleural effusion Code(s): J90 - PLEURAL EFFUSION, NOT ELSEWHERE CLASSIFIED (5) COPD (chronic obstructive pulmonary disease) Code(s): J44.9 - CHRONIC OBSTRUCTIVE PULMONARY DISEASE, UNSPECIFIED (6) Schizophrenia Code(s): F20.9 - SCHIZOPHRENIA, UNSPECIFIED (7) Bipolar 1 disorder Code(s): F31.9 - BIPOLAR DISORDER, UNSPECIFIED Assessment/Plan Current Medications Generic Name Dose Route Start Last Admin Trade Name Freq PRN Reason Stop Dose Admin Albuterol Sulfate 1 amp 09/07/16 19:52 09/11/16 12:09 Ventolin 0.083% Nebulizer Soln - NEB 1 amp Q4H PRN Administration SHORT OF BREATH/WHEEZING Clozapine 50 mg 09/09/16 11:00 09/11/16 09:48 Clozaril - PO 50 mg BID [facility] Administration Divalproex Sodium 500 mg 09/07/16 22:00 09/10/16 21:20 Depakote *Er* - PO 500 mg HS [facility] Administration Docusate Sodium 100 mg 09/08/16 10:00 09/11/16 09:47 Colace - PO 100 mg DAILY [facility] Administration Guaifenesin 10 ml 09/07/16 19:52 09/11/16 14:04 Robitussin - PO 10 ml Q4H PRN Administration COUGH Lorazepam 1 mg 09/07/16 22:00 09/11/16 14:04 Ativan - PO 1 mg TID [facility] Administration Melatonin 3 mg 09/07/16 22:00 09/10/16 21:18 Melatonin PO 3 mg HS [facility] Administration Multivitamins/Minerals/Vitamin C 1 tab 09/08/16 10:00 09/11/16 09:46 Tab-A-Vit - PO 1 tab DAILY [facility] Administration Pantoprazole Sodium 40 mg 09/08/16 10:00 09/11/16 09:47 Protonix - PO 40 mg DAILY [facility] Administration Risperidone 2 mg 09/09/16 10:00 09/11/16 09:48 Risperdal - PO 2 mg BID [facility] Administration Trazodone HCl 50 mg 09/07/16 22:00 09/10/16 21:21 Desyrel - PO 50 mg HS [facility] Administration Impression 1. ESRD 2. fluid overload 3. complex renal cyst 4. bipolar 5. dyspnea 6. COPD 7. pleural effusion, bilateral 8. anemia 9. anasarca Plan - HD in am - pt/rehab eval - will UF more fluid tomorrow - complex renal cyst will need urology follow up - repeat cxr after next HD - cont current meds - will follow pt Dr Aquino
--- NOTE | 2016-09-11 14:15 | PN ---
Progress Note, Physician Chief Complaint: Pt asks to be brought back to her room, though she is already in it. Occasional sharp pain in both axillae when she coughs. History of Present Illness: Patient is a 56 year old white female with a significant past medical history of ESRD (on HD for 15 years), hypertension, hyperlipidemia, schizophrenia, bipolar disorder and anxiety who was sent to the ED from [facility] for SOB. Patient missed her dialysis and desaturated with O2 Sat of 79. Patient was referred to [facility] (psychiatric unit available), but brought to [place] by mistake. Allergy - penicillin PCP - Dr. Delaney - Current Medication List Current Medications: Active Medications Albuterol Sulfate (Ventolin 0.083% Nebulizer Soln -) 1 amp NEB Q4H PRN PRN Reason: SHORT OF BREATH/WHEEZING Last Admin: 09/11/16 12:09 Dose: 1 amp Clozapine (Clozaril -) 50 mg PO BID [facility] Last Admin: 09/11/16 09:48 Dose: 50 mg Divalproex Sodium (Depakote *Er* -) 500 mg PO HS [facility] Last Admin: 09/10/16 21:20 Dose: 500 mg Docusate Sodium (Colace -) 100 mg PO DAILY [facility] Last Admin: 09/11/16 09:47 Dose: 100 mg Guaifenesin (Robitussin -) 10 ml PO Q4H PRN PRN Reason: COUGH Last Admin: 09/11/16 14:04 Dose: 10 ml Lorazepam (Ativan -) 1 mg PO TID [facility] Last Admin: 09/11/16 14:04 Dose: 1 mg Melatonin (Melatonin) 3 mg PO HS [facility] Last Admin: 09/10/16 21:18 Dose: 3 mg Multivitamins/Minerals/Vitamin C (Tab-A-Vit -) 1 tab PO DAILY [facility] Last Admin: 09/11/16 09:46 Dose: 1 tab Pantoprazole Sodium (Protonix -) 40 mg PO DAILY [facility] Last Admin: 09/11/16 09:47 Dose: 40 mg Risperidone (Risperdal -) 2 mg PO BID [facility] Last Admin: 09/11/16 09:48 Dose: 2 mg Trazodone HCl (Desyrel -) 50 mg PO HS [facility] Last Admin: 09/10/16 21:21 Dose: 50 mg - Objective Vital Signs: Vital Signs Temperature 97.8 F 09/11/16 07:24 Pulse Rate 104 H 09/11/16 07:24 Respiratory Rate 18 09/11/16 07:30 Blood Pressure 97/52 09/11/16 07:24 O2 Sat by Pulse Oximetry (%) 94 L 09/11/16 07:30 Constitutional: Yes: Anxious, Mild Distress Eyes: Yes: WNL HENT: Yes: WNL Neck: Yes: WNL Cardiovascular: Yes: Regular Rate and Rhythm Respiratory: Yes: Regular Gastrointestinal: Yes: Soft ...Rectal Exam: Yes: Deferred Genitourinary: No: Anuria Musculoskeletal: Yes: Muscle Weakness Extremities: Yes: Cool Edema: No Peripheral Pulses WNL: Yes Integumentary: Yes: WNL Neurological: Yes: Confusion, Weakness Psychiatric: Yes: Other Labs: CBC, BMP 09/10/16 09:15 09/10/16 09:15 INR, PTT INR 0.94 (0.82-1.09) D 09/06/16 16:21 - ....Imaging Other: Image Reviewed (telemetry: NSR;no arrhythmias) Problem List - Problems (1) Bipolar 1 disorder Code(s): F31.9 - BIPOLAR DISORDER, UNSPECIFIED (2) ESRD (end stage renal disease) on dialysis Assessment/Plan: for hemodialysis per cork wirer. Code(s): N18.6 - END STAGE RENAL DISEASE Z99.2 - DEPENDENCE ON RENAL DIALYSIS (3) Pleural effusion Code(s): J90 - PLEURAL EFFUSION, NOT ELSEWHERE CLASSIFIED (4) COPD (chronic obstructive pulmonary disease) Code(s): J44.9 - CHRONIC OBSTRUCTIVE PULMONARY DISEASE, UNSPECIFIED (5) Schizophrenia Assessment/Plan: F/u with psychiatrist. Code(s): F20.9 - SCHIZOPHRENIA, UNSPECIFIED (6) HTN (hypertension) Code(s): I10 - ESSENTIAL (PRIMARY) HYPERTENSION (7) GERD (gastroesophageal reflux disease) Assessment/Plan: Off PPI. Code(s): K21.9 - GASTRO-ESOPHAGEAL REFLUX DISEASE WITHOUT ESOPHAGITIS (8) [place] cardiac risk >20% in next 10 years Assessment/Plan: F/u lipids and TSH. F/u records from [facility] regarding prior stress MIBI. Code(s): Z91.89 - OTH PERSONAL RISK FACTORS, NOT ELSEWHERE CLASSIFIED (9) Sedentary lifestyle Code(s): Z91.89 - OT PERSONAL RISK FACTORS, NOT ELSEWHERE CLASSIFIED (10) Pancytopenia Code(s): D61.818 - OTHER PANCYTOPENIA (11) Prolonged Q-T interval on ECG Code(s): R94.31 - ABNORMAL ELECTROCARDIOGRAM [ECG] [EKG] (12) Diastolic CHF Code(s): I50.30 - UNSPECIFIED DIASTOLIC (CONGESTIVE) HEART FAILURE
--- NOTE | 2016-09-11 16:45 | PN ---
Progress Note, Physician History of Present Illness: -stable - Current Medication List Current Medications: Active Medications Albumin Human (Albumin Human 25%) 12.5 gm IVPB Q30M [facility] Albuterol Sulfate (Ventolin 0.083% Nebulizer Soln -) 1 amp NEB Q4H PRN PRN Reason: SHORT OF BREATH/WHEEZING Last Admin: 09/11/16 15:59 Dose: 1 amp Clozapine (Clozaril -) 50 mg PO BID [facility] Last Admin: 09/11/16 09:48 Dose: 50 mg Divalproex Sodium (Depakote *Er* -) 500 mg PO [facility] Last Admin: 09/10/16 21:20 Dose: 500 mg Docusate Sodium (Colace -) 100 mg PO DAILY [facility] Last Admin: 09/11/16 09:47 Dose: 100 mg Epoetin Asif (Epogen -) 4,000 units IVPUSH ONCE ONE Stop: 09/12/16 14:07 Guaifenesin (Robitussin -) 10 ml PO Q4H PRN PRN Reason: COUGH Last Admin: 09/11/16 14:04 Dose: 10 ml Heparin Sodium (Porcine) (Heparin -) 1,000 unit IVPUSH ONCE ONE Stop: 09/12/16 14:07 Lorazepam (Ativan -) 1 mg PO TID [facility] Last Admin: 09/11/16 14:04 Dose: 1 mg Melatonin (Melatonin) 3 mg PO [facility] Last Admin: 09/10/16 21:18 Dose: 3 mg Multivitamins/Minerals/Vitamin C (Tab-A-Vit -) 1 tab PO DAILY [facility] Last Admin: 09/11/16 09:46 Dose: 1 tab Pantoprazole Sodium (Protonix -) 40 mg PO DAILY [facility] Last Admin: 09/11/16 09:47 Dose: 40 mg Risperidone (Risperdal -) 2 mg PO BID [facility] Last Admin: 09/11/16 09:48 Dose: 2 mg Trazodone HCl (Desyrel -) 50 mg PO [facility] Last Admin: 09/10/16 21:21 Dose: 50 mg - Objective Vital Signs: Vital Signs Temperature 97.8 F 09/11/16 07:24 Pulse Rate 104 H 09/11/16 07:24 Respiratory Rate 18 09/11/16 07:30 Blood Pressure 97/52 09/11/16 07:24 O2 Sat by Pulse Oximetry (%) 94 L 09/11/16 07:30 HENT: Yes: Atraumatic Neck: Yes: Supple Cardiovascular: Yes: Regular Rate and Rhythm Respiratory: Yes: CTA Bilaterally Gastrointestinal: Yes: Normal Bowel Sounds Extremities: Yes: WNL Neurological: Yes: Alert, Oriented Labs: CBC, BMP 09/10/16 09:15 09/10/16 09:15 INR, PTT INR 0.94 (0.82-1.09) D 09/06/16 16:21 Problem List - Problems (1) Anasarca Assessment/Plan: on HD Code(s): R60.1 - GENERALIZED EDEMA (2) Bipolar 1 disorder Code(s): F31.9 - BIPOLAR DISORDER, UNSPECIFIED (3) ESRD (end stage renal disease) on dialysis Assessment/Plan: n hd dr casillas Code(s): N18.6 - END STAGE RENAL DISEASE Z99.2 - DEPENDENCE ON RENAL DIALYSIS (4) COPD (chronic obstructive pulmonary disease) Assessment/Plan: continue home meds'duo nebs prn Code(s): J44.9 - CHRONIC OBSTRUCTIVE PULMONARY DISEASE, UNSPECIFIED (5) Schizophrenia Assessment/Plan: pt is on 1:1 seen by psych need in pt psych Code(s): F20.9 - SCHIZOPHRENIA, UNSPECIFIED Assessment/Plan Impression 1. ESRD 2. fluid overload 3. complex renal cyst 4. bipolar 5. dyspnea 6. COPD 7. pleural effusion, bilateral 8. anemia 9. anasarca Plan -on hd fluid restriction continue home meds psych consult noted..on risperdal now [facility] PLANNING
[2016-09-11] MEDS: ALBUMIN HUMAN 25% 12.5 GM/50 ML VIAL IVPB SCH (19:24)
[2016-09-11] MEDS: MELATONIN 1 MG TABLET PO SCH (22:32)
[2016-09-11] MEDS: traZODone HCL 50 MG TABLET (FP) PO SCH (22:33)
[2016-09-11] MEDS: DIVALPROEX NA *ER* EXTEND REL 500 MG TABLET.SA (FP) PO SCH (22:39)
[2016-09-12] MEDS: LORazepam 1 MG TABLET PO SCH ×3 (06:24→22:44)
--- NOTE | 2016-09-12 09:32 | PN ---
Progress Note (short form) - Note Progress Note: PULMONARY DIFFICULT TO OBTAIN ACCURATE HX DUE TO SCHIZOPHRENIA AROUSABLE ASHEN/VSS/AFEBRILE ANICTERIC ABSENT BREATH SOUNDS ON LEFT/DIMINISHED BREATH SOUNDS RIGHT BASE S1S2 BS+ SOFT AVF L UPPER EXT/ LOWER EXT EDEMA RIGHT GREATER THAN LEFT LABS/MEDS/NOTES/IMAGING REVIEWED LARGE VOLUME LEFT PLEURAL EFFUSION WITH COMPRESSIVE ATELECTASIS OF LEFT LUNG MODERATE RIGHT EFFUSION PLEURAL EFFUSIONS COPD ESRD/HD HTN/HPL Schizo-affective disorder PLAN: ALL SUGGESTIONS HAVE BEEN LIMITED BY THE PATIENT'S FAILURE TO COOPERATE(LIKELY DUE TO UNDERLYING PSYCHIATRIC ILLNESS) PATIENT WILL LIKELY REQUIRE DRAINAGE OF LARGE VOLUME PLEURAL EFFUSION PATIENT NEEDS KATHRYN TO R/O MITRAL VEGETATION SUGGESTED BY TTE HD as BP tolerates BD/O2 TX Depakote Trazodone GI prophylaxis VTE prophylaxis PO as tolerated Marie PALACIO MD
[2016-09-12] MEDS ORDERED: EPOETIN ALFA 2,000 UNITS/1 ML VIAL IVPUSH ONE (10:00)
[2016-09-12] MEDS ORDERED: PT OWN MED DRAWER 7, Y5N ONE ×2 (10:03→21:31)
[2016-09-12] MEDS: risperiDONE 1 MG TABLET (FP) PO SCH ×2 (10:11→22:45)
[2016-09-12] MEDS: cloZAPine 25 MG TABLET PO SCH ×2 (10:13→22:45)
[2016-09-12] MEDS: PANTOPRAZOLE 40 MG TABLET (FP) PO SCH (10:13)
[2016-09-12] MEDS: MULTIVITAMINS (DAILY MVI) TABLET (FP) PO SCH (10:13)
[2016-09-12] MEDS: DOCUSATE SODIUM 100 MG CAPSULE (FP) PO SCH (10:14)
[2016-09-12] MEDS: ALBUTEROL SO4 0.083% IH SOL 2.5 MG/3 ML VIAL.NEB. NEB PRN ×2 (10:36→15:31)
--- NOTE | 2016-09-12 11:48 | PN ---
Progress Note, Physician History of Present Illness: Pt seen and examined at bedside. She is awake and appears comfortable. - Current Medication List Current Medications: Active Medications Albuterol Sulfate (Ventolin 0.083% Nebulizer Soln -) 1 amp NEB Q4H PRN PRN Reason: SHORT OF BREATH/WHEEZING Last Admin: 09/12/16 10:36 Dose: 1 amp Clozapine (Clozaril -) 50 mg PO BID [facility] Last Admin: 09/12/16 10:13 Dose: 50 mg Divalproex Sodium (Depakote *Er* -) 500 mg PO HS [facility] Last Admin: 09/11/16 22:39 Dose: 500 mg Docusate Sodium (Colace -) 100 mg PO DAILY [facility] Last Admin: 09/12/16 10:14 Dose: 100 mg Guaifenesin (Robitussin -) 10 ml PO Q4H PRN PRN Reason: COUGH Last Admin: 09/11/16 14:04 Dose: 10 ml Heparin Sodium (Porcine) (Heparin -) 1,000 unit IVPUSH ONCE ONE Stop: 09/12/16 14:07 Lorazepam (Ativan -) 1 mg PO TID [facility] Last Admin: 09/12/16 06:24 Dose: 1 mg Melatonin (Melatonin) 3 mg PO [facility] Last Admin: 09/11/16 22:32 Dose: 3 mg Multivitamins/Minerals/Vitamin C (Tab-A-Vit -) 1 tab PO DAILY [facility] Last Admin: 09/12/16 10:13 Dose: 1 tab Pantoprazole Sodium (Protonix -) 40 mg PO DAILY [facility] Last Admin: 09/12/16 10:13 Dose: 40 mg Risperidone (Risperdal -) 2 mg PO BID [facility] Last Admin: 09/12/16 10:11 Dose: 2 mg Trazodone HCl (Desyrel -) 50 mg PO [facility] Last Admin: 09/11/16 22:33 Dose: 50 mg - Objective Vital Signs: Vital Signs Temperature 98.5 F 09/11/16 17:00 Pulse Rate 100 H 09/12/16 06:13 Respiratory Rate 20 09/12/16 06:13 Blood Pressure 89/48 09/12/16 06:13 O2 Sat by Pulse Oximetry (%) 94 L 09/11/16 07:30 Constitutional: Yes: Calm Eyes: Yes: Conjunctiva Clear HENT: Yes: Atraumatic Cardiovascular: Yes: S1, S2 Respiratory: Yes: On Nasal O2 Gastrointestinal: Yes: Normal Bowel Sounds, Soft Musculoskeletal: Yes: Muscle Weakness Edema: Yes Edema: LLE: 2+, RLE: 1+ Neurological: Yes: Oriented Psychiatric: Yes: Oriented Labs: CBC, BMP 09/10/16 09:15 09/10/16 09:15 INR, PTT INR 0.94 (0.82-1.09) D 09/06/16 16:21 Problem List - Problems (1) Anasarca Code(s): R60.1 - GENERALIZED EDEMA (2) ESRD (end stage renal disease) on dialysis Code(s): N18.6 - END STAGE RENAL DISEASE Z99.2 - DEPENDENCE ON RENAL DIALYSIS (3) Hypotension Code(s): I95.9 - HYPOTENSION, UNSPECIFIED Qualifiers: Hypotension type: unspecified hypotension type Qualified Code(s): I95.9 - Hypotension, unspecified (4) Pleural effusion Code(s): J90 - PLEURAL EFFUSION, NOT ELSEWHERE CLASSIFIED (5) COPD (chronic obstructive pulmonary disease) Code(s): J44.9 - CHRONIC OBSTRUCTIVE PULMONARY DISEASE, UNSPECIFIED (6) Schizophrenia Code(s): F20.9 - SCHIZOPHRENIA, UNSPECIFIED (7) Bipolar 1 disorder Code(s): F31.9 - BIPOLAR DISORDER, UNSPECIFIED Assessment/Plan Current Medications Generic Name Dose Route Start Last Admin Trade Name Freq PRN Reason Stop Dose Admin Albuterol Sulfate 1 amp 09/07/16 19:52 09/12/16 10:36 Ventolin 0.083% Nebulizer Soln - NEB 1 amp Q4H PRN Administration SHORT OF BREATH/WHEEZING Clozapine 50 mg 09/09/16 11:00 09/12/16 10:13 Clozaril - PO 50 mg BID [facility] Administration Divalproex Sodium 500 mg 09/07/16 22:00 09/11/16 22:39 Depakote *Er* - PO 500 mg HS [facility] Administration Docusate Sodium 100 mg 09/08/16 10:00 09/12/16 10:14 Colace - PO 100 mg DAILY [facility] Administration Guaifenesin 10 ml 09/07/16 19:52 09/11/16 14:04 Robitussin - PO 10 ml Q4H PRN Administration COUGH Heparin Sodium (Porcine) 1,000 unit 09/12/16 14:06 Heparin - IVPUSH 09/12/16 14:07 ONCE ONE Lorazepam 1 mg 09/07/16 22:00 09/12/16 06:24 Ativan - PO 1 mg TID [facility] Administration Melatonin 3 mg 09/07/16 22:00 09/11/16 22:32 Melatonin PO 3 mg HS [facility] Administration Multivitamins/Minerals/Vitamin C 1 tab 09/08/16 10:00 09/12/16 10:13 Tab-A-Vit - PO 1 tab DAILY [facility] Administration Pantoprazole Sodium 40 mg 09/08/16 10:00 09/12/16 10:13 Protonix - PO 40 mg DAILY [facility] Administration Risperidone 2 mg 09/09/16 10:00 09/12/16 10:11 Risperdal - PO 2 mg BID [facility] Administration Trazodone HCl 50 mg 09/07/16 22:00 09/11/16 22:33 Desyrel - PO 50 mg HS [facility] Administration Impression 1. ESRD 2. fluid overload 3. complex renal cyst 4. bipolar 5. dyspnea 6. COPD 7. pleural effusion, bilateral 8. anemia 9. anasarca Plan - pt is going for HD today - check cxr tonight after HD - pt/rehab eval - complex renal cyst will need urology follow up - cont current meds - will follow pt Dr Aquino
[2016-09-12] MEDS ORDERED: HEPARIN NA (PORCINE) 5,000 UNITS/ML 1ML VIAL IVPUSH ONE (12:00)
--- NOTE | 2016-09-12 12:17 | PN ---
Progress Note, Physician History of Present Illness: Patient is a 56 year old female with a significant past medical history of ESRD (on HD for 15 years), hypertension, hyperlipidemia, schizophrenia, bipolar disorder and anxiety who was sent to the ED from [facility] for SOB. Patient missed her dialysis and desaturated with O2 Sat of 79. Patient was referred to [facility], but brought to [place] by mistake. Allergy - penicillin PCP - Dr. Gunter - Current Medication List Current Medications: Active Medications Albuterol Sulfate (Ventolin 0.083% Nebulizer Soln -) 1 amp NEB Q4H PRN PRN Reason: SHORT OF BREATH/WHEEZING Last Admin: 09/12/16 10:36 Dose: 1 amp Clozapine (Clozaril -) 50 mg PO BID [facility] Last Admin: 09/12/16 10:13 Dose: 50 mg Divalproex Sodium (Depakote *Er* -) 500 mg PO HS [facility] Last Admin: 09/11/16 22:39 Dose: 500 mg Docusate Sodium (Colace -) 100 mg PO DAILY [facility] Last Admin: 09/12/16 10:14 Dose: 100 mg Guaifenesin (Robitussin -) 10 ml PO Q4H PRN PRN Reason: COUGH Last Admin: 09/11/16 14:04 Dose: 10 ml Lorazepam (Ativan -) 1 mg PO TID [facility] Last Admin: 09/12/16 06:24 Dose: 1 mg Melatonin (Melatonin) 3 mg PO HS [facility] Last Admin: 09/11/16 22:32 Dose: 3 mg Multivitamins/Minerals/Vitamin C (Tab-A-Vit -) 1 tab PO DAILY [facility] Last Admin: 09/12/16 10:13 Dose: 1 tab Pantoprazole Sodium (Protonix -) 40 mg PO DAILY [facility] Last Admin: 09/12/16 10:13 Dose: 40 mg Risperidone (Risperdal -) 2 mg PO BID [facility] Last Admin: 09/12/16 10:11 Dose: 2 mg Trazodone HCl (Desyrel -) 50 mg PO HS [facility] Last Admin: 09/11/16 22:33 Dose: 50 mg - Objective Vital Signs: Vital Signs Temperature 98.5 F 09/11/16 17:00 Pulse Rate 100 H 09/12/16 06:13 Respiratory Rate 20 09/12/16 06:13 Blood Pressure 89/48 09/12/16 06:13 O2 Sat by Pulse Oximetry (%) 94 L 09/11/16 07:30 Eyes: Yes: WNL, Conjunctiva Clear, EOM Intact HENT: Yes: WNL, Atraumatic, Normocephalic Neck: Yes: WNL, Supple, Trachea Midline Cardiovascular: Yes: WNL, Regular Rate and Rhythm Respiratory: Yes: WNL, Regular, CTA Bilaterally Gastrointestinal: Yes: WNL, Normal Bowel Sounds Genitourinary: Yes: WNL Musculoskeletal: Yes: WNL Extremities: Yes: WNL Edema: No Integumentary: Yes: WNL Neurological: Yes: WNL, Alert, Oriented ...Motor Strength: WNL Psychiatric: Yes: WNL Labs: CBC, BMP 09/10/16 09:15 09/10/16 09:15 INR, PTT INR 0.94 (0.82-1.09) D 09/06/16 16:21 Problem List - Problems (1) Anasarca Code(s): R60.1 - GENERALIZED EDEMA (2) Bipolar 1 disorder Code(s): F31.9 - BIPOLAR DISORDER, UNSPECIFIED (3) ESRD (end stage renal disease) on dialysis Code(s): N18.6 - END STAGE RENAL DISEASE Z99.2 - DEPENDENCE ON RENAL DIALYSIS (4) Hypotension Code(s): I95.9 - HYPOTENSION, UNSPECIFIED Qualifiers: Hypotension type: unspecified hypotension type Qualified Code(s): I95.9 - Hypotension, unspecified (5) Pleural effusion Code(s): J90 - PLEURAL EFFUSION, NOT ELSEWHERE CLASSIFIED (6) Abdominal pain Code(s): R10.9 - UNSPECIFIED ABDOMINAL PAIN Qualifiers: Abdominal location: unspecified location Qualified Code(s): R10.9 - Unspecified abdominal pain (7) COPD (chronic obstructive pulmonary disease) Code(s): J44.9 - CHRONIC OBSTRUCTIVE PULMONARY DISEASE, UNSPECIFIED (8) Schizophrenia Code(s): F20.9 - SCHIZOPHRENIA, UNSPECIFIED Assessment/Plan - Problems (1) Bipolar 1 disorder Code(s): F31.9 - BIPOLAR DISORDER, UNSPECIFIED (2) ESRD (end stage renal disease) on dialysis Assessment/Plan: for hemodialysis per accounting clerks supervisor. Code(s): N18.6 - END STAGE RENAL DISEASE Z99.2 - DEPENDENCE ON RENAL DIALYSIS (3) Pleural effusion Code(s): J90 - PLEURAL EFFUSION, NOT ELSEWHERE CLASSIFIED (4) COPD (chronic obstructive pulmonary disease) Code(s): J44.9 - CHRONIC OBSTRUCTIVE PULMONARY DISEASE, UNSPECIFIED (5) Schizophrenia Assessment/Plan: F/u with psychiatrist. Code(s): F20.9 - SCHIZOPHRENIA, UNSPECIFIED (6) HTN (hypertension) Code(s): I10 - ESSENTIAL (PRIMARY) HYPERTENSION (7) GERD (gastroesophageal reflux disease) Assessment/Plan: Off PPI. Code(s): K21.9 - GASTRO-ESOPHAGEAL REFLUX DISEASE WITHOUT ESOPHAGITIS (8) [place] cardiac risk >20% in next 10 years Assessment/Plan: F/u lipids and TSH. F/u records from [facility] regarding prior stress MIBI. Code(s): Z91.89 - OT PERSONAL RISK FACTORS, NOT ELSEWHERE CLASSIFIED (9) Sedentary lifestyle Code(s): Z91.89 - OT PERSONAL RISK FACTORS, NOT ELSEWHERE CLASSIFIED (10) Pancytopenia Code(s): D61.818 - OTHER PANCYTOPENIA (11) Prolonged Q-T interval on ECG Code(s): R94.31 - ABNORMAL ELECTROCARDIOGRAM [ECG] [EKG] (12) Diastolic CHF Code(s): I50.30 - UNSPECIFIED DIASTOLIC (CONGESTIVE) HEART FAILURE
--- NOTE | 2016-09-12 15:19 | PN ---
Progress Note, Physician Chief Complaint: "they are hrting me with this x ray...ooch". patient is re eval after being seen 09-[address] Sanchez. Returned from dialysis presently. Request by RN Moni to re-evaluate danger yo self, 1;1 constant observation status. - Current Medication List Current Medications: Active Medications Albuterol Sulfate (Ventolin 0.083% Nebulizer Soln -) 1 amp NEB Q4H PRN PRN Reason: SHORT OF BREATH/WHEEZING Last Admin: 09/12/16 10:36 Dose: 1 amp Clozapine (Clozaril -) 50 mg PO BID ON LICENSE OF [facility] Last Admin: 09/12/16 10:13 Dose: 50 mg Divalproex Sodium (Depakote *Er* -) 500 mg PO HS ON LICENSE OF [facility] Last Admin: 09/11/16 22:39 Dose: 500 mg Docusate Sodium (Colace -) 100 mg PO DAILY ON LICENSE OF [facility] Last Admin: 09/12/16 10:14 Dose: 100 mg Guaifenesin (Robitussin -) 10 ml PO Q4H PRN PRN Reason: COUGH Last Admin: 09/11/16 14:04 Dose: 10 ml Lorazepam (Ativan -) 1 mg PO TID ON LICENSE OF [facility] Last Admin: 09/12/16 06:24 Dose: 1 mg Melatonin (Melatonin) 3 mg PO HS ON LICENSE OF [facility] Last Admin: 09/11/16 22:32 Dose: 3 mg Multivitamins/Minerals/Vitamin C (Tab-A-Vit -) 1 tab PO DAILY ON LICENSE OF [facility] Last Admin: 09/12/16 10:13 Dose: 1 tab Pantoprazole Sodium (Protonix -) 40 mg PO DAILY ON [facility] OF [facility] Last Admin: 09/12/16 10:13 Dose: 40 mg Risperidone (Risperdal -) 2 mg PO BID [facility] Last Admin: 09/12/16 10:11 Dose: 2 mg Trazodone HCl (Desyrel -) 50 mg PO HS ON LICENSE OF [facility] Last Admin: 09/11/16 22:33 Dose: 50 mg - Objective Vital Signs: Vital Signs Temperature 98.5 F 09/11/16 17:00 Pulse Rate 100 H 09/12/16 06:13 Respiratory Rate 20 09/12/16 06:13 Blood Pressure 89/48 09/12/16 06:13 O2 Sat by Pulse Oximetry (%) 94 L 09/11/16 07:30 Labs: CBC, BMP 09/10/16 09:15 09/10/16 09:15 INR, PTT INR 0.94 (0.82-1.09) D 09/06/16 16:21 Problem List - Problems (1) Bipolar 1 disorder Code(s): F31.9 - BIPOLAR DISORDER, UNSPECIFIED Assessment/Plan Patient is current alert and orientated, speaks in loud screaming voice, denies Suicidal ideation, denies homicidal ideation oer plan but is very irritable partially co-operative with care and proceedures. Has symptoms of depressed mood , disorganized disruptive thought, delusion, paronoia. dishevelled appearance hyperactive activity, presently with voices. dimished recall impaired impulse control. Dx Psychotic episode. Continue risperidal 2mg po BID continue Ativan Trazadone 50 mg at night with Melatonin 3mg depakote 500mg at night Continue psych meds. DISCONTINUE constant observation.
[2016-09-12] MEDS: ALBUMIN HUMAN 25% 12.5 GM/50 ML VIAL IVPB SCH ×2 (15:41)
--- NOTE | 2016-09-12 18:43 | PN ---
Progress Note, Physician History of Present Illness: -stable - Current Medication List Current Medications: Active Medications Albuterol Sulfate (Ventolin 0.083% Nebulizer Soln -) 1 amp NEB Q4H PRN PRN Reason: SHORT OF BREATH/WHEEZING Last Admin: 09/12/16 15:31 Dose: 1 amp Clozapine (Clozaril -) 50 mg PO BID [facility] Last Admin: 09/12/16 10:13 Dose: 50 mg Divalproex Sodium (Depakote *Er* -) 500 mg PO [facility] Last Admin: 09/11/16 22:39 Dose: 500 mg Docusate Sodium (Colace -) 100 mg PO DAILY [facility] Last Admin: 09/12/16 10:14 Dose: 100 mg Guaifenesin (Robitussin -) 10 ml PO Q4H PRN PRN Reason: COUGH Last Admin: 09/11/16 14:04 Dose: 10 ml Lorazepam (Ativan -) 1 mg PO TID [facility] Last Admin: 09/12/16 15:25 Dose: 1 mg Melatonin (Melatonin) 3 mg PO [facility] Last Admin: 09/11/16 22:32 Dose: 3 mg Multivitamins/Minerals/Vitamin C (Tab-A-Vit -) 1 tab PO DAILY [facility] Last Admin: 09/12/16 10:13 Dose: 1 tab Pantoprazole Sodium (Protonix -) 40 mg PO DAILY [facility] Last Admin: 09/12/16 10:13 Dose: 40 mg Risperidone (Risperdal -) 2 mg PO BID [facility] Last Admin: 09/12/16 10:11 Dose: 2 mg Trazodone HCl (Desyrel -) 50 mg PO [facility] Last Admin: 09/11/16 22:33 Dose: 50 mg - Objective Vital Signs: Vital Signs Temperature 98.2 F 09/12/16 11:10 Pulse Rate 96 H 09/12/16 15:45 Respiratory Rate 18 09/12/16 15:45 Blood Pressure 82/35 09/12/16 15:45 O2 Sat by Pulse Oximetry (%) 94 L 09/11/16 07:30 Constitutional: Yes: No Distress HENT: Yes: Atraumatic Neck: Yes: Supple Cardiovascular: Yes: Regular Rate and Rhythm Respiratory: Yes: CTA Bilaterally Gastrointestinal: Yes: Normal Bowel Sounds Extremities: Yes: WNL Neurological: Yes: Alert, Oriented Labs: CBC, BMP 09/10/16 09:15 09/10/16 09:15 INR, PTT INR 0.94 (0.82-1.09) D 09/06/16 16:21 Problem List - Problems (1) Anasarca Assessment/Plan: on hd better Code(s): R60.1 - GENERALIZED EDEMA (2) Bipolar 1 disorder Code(s): F31.9 - BIPOLAR DISORDER, UNSPECIFIED (3) ESRD (end stage renal disease) on dialysis Assessment/Plan: n hd dr casillas Code(s): N18.6 - END STAGE RENAL DISEASE Z99.2 - DEPENDENCE ON RENAL DIALYSIS (4) COPD (chronic obstructive pulmonary disease) Assessment/Plan: continue home meds'duo nebs prn Code(s): J44.9 - CHRONIC OBSTRUCTIVE PULMONARY DISEASE, UNSPECIFIED (5) Schizophrenia Assessment/Plan: dc constant supervision stable Code(s): F20.9 - SCHIZOPHRENIA, UNSPECIFIED Assessment/Plan Impression 1. ESRD 2. fluid overload 3. complex renal cyst 4. bipolar 5. dyspnea 6. COPD 7. pleural effusion, bilateral 8. anemia 9. anasarca Plan -on hd fluid restriction continue home meds continue psych meds
[2016-09-12] MEDS: MELATONIN 1 MG TABLET PO SCH (22:44)
[2016-09-12] MEDS: DIVALPROEX NA *ER* EXTEND REL 500 MG TABLET.SA (FP) PO SCH (22:45)
[2016-09-12] MEDS: traZODone HCL 50 MG TABLET (FP) PO SCH (22:45)
[2016-09-13] MEDS: LORazepam 1 MG TABLET PO SCH ×3 (05:58→22:51)
--- NOTE | 2016-09-13 10:55 | PN ---
Progress Note (short form) - Note Progress Note: PULMONARY Denies shortness of breath, cough or chest pain. Last Vital Signs Temp Pulse Resp BP Pulse Ox 99.4 F 114 H 20 102/54 92 L 09/13/16 06:52 09/13/16 06:52 09/13/16 06:52 09/13/16 06:52 09/12/16 21:00 Gen: NAD at rest Heart: tachycardic, regular Lung: decreased breath sounds at the bases, scattered rhonchi Abd: soft, nontender Ext: + edema CBC, BMP 09/10/16 09:15 09/10/16 09:15 Active Medications Clozapine (Clozaril -) 50 mg PO BID [facility] Last Admin: 09/12/16 22:45 Dose: 50 mg Divalproex Sodium (Depakote *Er* -) 500 mg PO HS [facility] Last Admin: 09/12/16 22:45 Dose: 500 mg Docusate Sodium (Colace -) 100 mg PO DAILY [facility] Last Admin: 09/12/16 10:14 Dose: 100 mg Guaifenesin (Robitussin -) 10 ml PO Q4H PRN PRN Reason: COUGH Last Admin: 09/11/16 14:04 Dose: 10 ml Lorazepam (Ativan -) 1 mg PO TID [facility] Last Admin: 09/13/16 05:58 Dose: 1 mg Melatonin (Melatonin) 3 mg PO HS [facility] Last Admin: 09/12/16 22:44 Dose: 3 mg Multivitamins/Minerals/Vitamin C (Tab-A-Vit -) 1 tab PO DAILY [facility] Last Admin: 09/12/16 10:13 Dose: 1 tab Pantoprazole Sodium (Protonix -) 40 mg PO DAILY [facility] Last Admin: 09/12/16 10:13 Dose: 40 mg Risperidone (Risperdal -) 2 mg PO BID [facility] Last Admin: 09/12/16 22:45 Dose: 2 mg Trazodone HCl (Desyrel -) 50 mg PO HS [facility] Last Admin: 09/12/16 22:45 Dose: 50 mg A/P Chronic Pleural Effusions ESRD on HD COPD Anemia Schizophrenia - pt known from prior admissions at [facility], pleural effusions, consent and cooperation for thoracentesis have been chronic issues - CXR appears to be improving with aggressive ultrafiltration so would continue doing so - O2 to keep SpO2 >90% - DVT prophylaxis
[2016-09-13] MEDS: MULTIVITAMINS (DAILY MVI) TABLET (FP) PO SCH (10:59)
[2016-09-13] MEDS: risperiDONE 1 MG TABLET (FP) PO SCH ×2 (10:59→22:53)
[2016-09-13] MEDS: DOCUSATE SODIUM 100 MG CAPSULE (FP) PO SCH (10:59)
[2016-09-13] MEDS: PANTOPRAZOLE 40 MG TABLET (FP) PO SCH (10:59)
[2016-09-13] MEDS: cloZAPine 25 MG TABLET PO SCH ×2 (11:00→22:52)
--- NOTE | 2016-09-13 14:34 | PN ---
Progress Note, Physician History of Present Illness: -stable calm.. - Current Medication List Current Medications: Active Medications Acetaminophen (Tylenol -) 650 mg PO Q6H PRN PRN Reason: PAIN Clozapine (Clozaril -) 50 mg PO BID [facility] Last Admin: 09/13/16 11:00 Dose: 50 mg Divalproex Sodium (Depakote *Er* -) 500 mg PO [facility] Last Admin: 09/12/16 22:45 Dose: 500 mg Docusate Sodium (Colace -) 100 mg PO DAILY [facility] Last Admin: 09/13/16 10:59 Dose: 100 mg Guaifenesin (Robitussin -) 10 ml PO Q4H PRN PRN Reason: COUGH Last Admin: 09/11/16 14:04 Dose: 10 ml Lorazepam (Ativan -) 1 mg PO TID [facility] Last Admin: 09/13/16 05:58 Dose: 1 mg Melatonin (Melatonin) 3 mg PO [facility] Last Admin: 09/12/16 22:44 Dose: 3 mg Multivitamins/Minerals/Vitamin C (Tab-A-Vit -) 1 tab PO DAILY [facility] Last Admin: 09/13/16 10:59 Dose: 1 tab Pantoprazole Sodium (Protonix -) 40 mg PO DAILY [facility] Last Admin: 09/13/16 10:59 Dose: 40 mg Risperidone (Risperdal -) 2 mg PO BID [facility] Last Admin: 09/13/16 10:59 Dose: 2 mg Trazodone HCl (Desyrel -) 50 mg PO [facility] Last Admin: 09/12/16 22:45 Dose: 50 mg - Objective Vital Signs: Vital Signs Temperature 99.4 F 09/13/16 06:52 Pulse Rate 88 09/13/16 10:00 Respiratory Rate 20 09/13/16 10:00 Blood Pressure 100/55 09/13/16 10:00 O2 Sat by Pulse Oximetry (%) 92 L 09/12/16 21:00 Constitutional: Yes: No Distress HENT: Yes: Atraumatic Neck: Yes: Supple Cardiovascular: Yes: Regular Rate and Rhythm Respiratory: Yes: CTA Bilaterally Gastrointestinal: Yes: Normal Bowel Sounds Extremities: Yes: WNL Edema: No Edema: LLE: 1+, RLE: 1+ Peripheral Pulses WNL: Yes Neurological: Yes: Alert Labs: CBC, BMP 09/10/16 09:15 09/10/16 09:15 INR, PTT INR 0.94 (0.82-1.09) D 09/06/16 16:21 Problem List - Problems (1) Anasarca Assessment/Plan: on hd better pleural effusion Code(s): R60.1 - GENERALIZED EDEMA (2) Bipolar 1 disorder Code(s): F31.9 - BIPOLAR DISORDER, UNSPECIFIED (3) ESRD (end stage renal disease) on dialysis Assessment/Plan: on hd dr casillas Code(s): N18.6 - END STAGE RENAL DISEASE Z99.2 - DEPENDENCE ON RENAL DIALYSIS (4) COPD (chronic obstructive pulmonary disease) Assessment/Plan: continue home meds'duo nebs prn Code(s): J44.9 - CHRONIC OBSTRUCTIVE PULMONARY DISEASE, UNSPECIFIED (5) Schizophrenia Assessment/Plan: dc constant supervision stable Code(s): F20.9 - SCHIZOPHRENIA, UNSPECIFIED Assessment/Plan Impression 1. ESRD 2. fluid overload 3. complex renal cyst 4. bipolar 5. dyspnea 6. COPD 7. pleural effusion, bilateral 8. anemia 9. anasarca Plan -on hd fluid restriction continue home meds continue psych meds cardiology follow up for echo findings
[2016-09-13] MEDS: ACETAMINOPHEN 325 MG TABLET (FP) PO PRN (15:08)
--- NOTE | 2016-09-13 17:37 | CONSULT ---
Consult Consult Specialty:: infectious diseases Reason for Consultation:: sob,pna - History of Present Illness Chief Complaint: sob History of Present Illness: 56 year old female with pmhx of ESRD on HD, hyperlipidemia, HTN, schizophrenia, Bipolar and anxiety who was admitted for shortness of breath. was called in to evaluate because patient still continues to be sob.Patient was thought intially thaty she was fluid overloaded and it seems she is non compliant and has refused dialysis in the past she is a poor historian and he main c/o is sob She was in [facility] and was advised pleural tap - History Source History Provided By: Patient, Medical Record Limitations to Obtaining History: Poor Historian - Past Medical History DRAPERY SEAMSTRESS: Yes: Dementia Cardio/Vascular: Yes: HTN, Hyperlipdemia Pulmonary: Yes: Other (pleural effusion) Renal/: Yes: Renal Failure (ESRD on HD), Hemodialysis ...: No Psych: Yes: Anxiety, Bipolar, Schizophrenia - Past Surgical History Past Surgical History: Yes: AV Fistula/Graft - Alcohol/Substance Use Hx Alcohol Use: No - Smoking History Smoking history: Never smoked Have you smoked in the past 12 months: No Aproximately how many cigarettes per day: 40 If you are a former smoker, when did you quit?: 1 year - Social History Usual Living Arrangement: [facility] History of Recent Travel: No Home Medications - Allergies Allergies/Adverse Reactions: Allergies Allergy/AdvReac Type Severity Reaction Status Date / Time chlorpromazine Allergy Verified 09/06/16 15:52 haloperidol [From Haldol] Allergy Verified 09/06/16 15:52 haloperidol lactate Allergy Verified 09/06/16 15:52 [From Haldol] penicillamine Allergy Verified 09/06/16 15:52 zinc Allergy Verified 09/06/16 15:52 - Home Medications Home Medications: Ambulatory Orders Acetaminophen [Pain Relief] 325 mg PO QID 09/06/16 Albuterol 0.083% Nebulizer Alejandra [Ventolin 0.083% Nebulizer Soln -] 1 neb NEB Q4H 09/06/16 Divalproex *ER* [Depakote *ER* -] 500 mg PO HS 09/06/16 Docusate Sodium [Colace -] 100 mg PO DAILY 09/06/16 Folic Acid/Vit Bcomp,C [Dialyvite Tablet] 1 each PO DAILY 09/06/16 Ipratropium 0.02% Nebulizer [Atrovent 0.02% Nebulizer -] 1 neb NEB QID 09/06/16 Lorazepam 1 mg PO TID 09/06/16 Melatonin 3 mg PO HS 09/06/16 Pantoprazole Sodium 40 mg PO DAILY 09/06/16 Tramadol HCl 50 mg PO BID 09/06/16 Trazodone HCl 50 mg PO HS 09/06/16 Ziprasidone [Geodon -] 80 mg PO BID 09/06/16 Risperidone [Risperdal -] 2 mg PO BID #0 tablet 09/13/16 Review of Systems - Review of Systems Constitutional: reports: No Symptoms Eyes: reports: No Symptoms HENT: reports: No Symptoms Neck: reports: No Symptoms Cardiovascular: reports: No Symptoms Respiratory: reports: SOB, SOB on Exertion Gastrointestinal: reports: No Symptoms Genitourinary: reports: No Symptoms Musculoskeletal: reports: No Symptoms Integumentary: reports: No Symptoms Neurological: reports: No Symptoms Endocrine: reports: No Symptoms Hematology/Lymphatic: reports: No Symptoms Psychiatric: reports: No Symptoms Physical Exam Vital Signs: Vital Signs Temperature 99.2 F 09/13/16 14:43 Pulse Rate 92 H 09/13/16 14:43 Respiratory Rate 20 09/13/16 15:45 Blood Pressure 100/55 09/13/16 10:00 O2 Sat by Pulse Oximetry (%) 92 L 09/13/16 15:45 Constitutional: Yes: Calm, Mild Distress Neck: Yes: Supple Cardiovascular: Yes: Regular Rate and Rhythm Respiratory: Yes: Other (poor air entry bilateral lobes) Gastrointestinal: Yes: Normal Bowel Sounds, Soft Musculoskeletal: Yes: Other Extremities: Yes: Other Neurological: Yes: Alert, Oriented Psychiatric: Yes: Alert Labs: CBC, BMP 09/10/16 09:15 09/10/16 09:15 Imaging - Results Chest X-ray: Report Reviewed, Image Reviewed Assessment/Plan Problem List - Problems (1) Anasarca Code(s): R60.1 - GENERALIZED EDEMA (2) Bipolar 1 disorder Code(s): F31.9 - BIPOLAR DISORDER, UNSPECIFIED (3) ESRD (end stage renal disease) on dialysis Code(s): N18.6 - END STAGE RENAL DISEASE Z99.2 - DEPENDENCE ON RENAL DIALYSIS (4) COPD (chronic obstructive pulmonary disease) Code(s): J44.9 - CHRONIC OBSTRUCTIVE PULMONARY DISEASE, UNSPECIFIED (5) Schizophrenia Code(s): F20.9 - SCHIZOPHRENIA, UNSPECIFIED after looking at the complete picture i do not think at the moment patient has any infection. i had a long discussion with the aptient and i explained that pleural tap will help her plan will not start any abx at this time continue to watch if patient agrees pleural tap
--- NOTE | 2016-09-13 18:06 | PN ---
Progress Note, Physician History of Present Illness: Pt seen and examined at bedside. She is awake and anxious. - Current Medication List Current Medications: Active Medications Acetaminophen (Tylenol -) 650 mg PO Q6H PRN PRN Reason: PAIN Last Admin: 09/13/16 15:08 Dose: 650 mg Clozapine (Clozaril -) 50 mg PO BID [facility] Last Admin: 09/13/16 11:00 Dose: 50 mg Divalproex Sodium (Depakote *Er* -) 500 mg [address] [facility] Last Admin: 09/12/16 22:45 Dose: 500 mg Docusate Sodium (Colace -) 100 mg PO DAILY [facility] Last Admin: 09/13/16 10:59 Dose: 100 mg Guaifenesin (Robitussin -) 10 ml PO Q4H PRN PRN Reason: COUGH Last Admin: 09/11/16 14:04 Dose: 10 ml Lorazepam (Ativan -) 1 mg PO TID [facility] Last Admin: 09/13/16 15:08 Dose: 1 mg Melatonin (Melatonin) 3 mg PO [facility] Last Admin: 09/12/16 22:44 Dose: 3 mg Multivitamins/Minerals/Vitamin C (Tab-A-Vit -) 1 tab PO DAILY [facility] Last Admin: 09/13/16 10:59 Dose: 1 tab Pantoprazole Sodium (Protonix -) 40 mg PO DAILY [facility] Last Admin: 09/13/16 10:59 Dose: 40 mg Risperidone (Risperdal -) 2 mg PO BID [facility] Last Admin: 09/13/16 10:59 Dose: 2 mg Trazodone HCl (Desyrel -) 50 mg PO [facility] Last Admin: 09/12/16 22:45 Dose: 50 mg - Objective Vital Signs: Vital Signs Temperature 99.2 F 09/13/16 14:43 Pulse Rate 92 H 09/13/16 14:43 Respiratory Rate 20 09/13/16 15:45 Blood Pressure 100/55 09/13/16 10:00 O2 Sat by Pulse Oximetry (%) 92 L 09/13/16 15:45 Constitutional: Yes: Anxious Eyes: Yes: Conjunctiva Clear HENT: Yes: Atraumatic Cardiovascular: Yes: S1, S2 Respiratory: Yes: Diminished, On Nasal O2 Gastrointestinal: Yes: Soft, Abdomen, Obese Genitourinary: Yes: WNL Musculoskeletal: Yes: WNL Edema: Yes Edema: LLE: 1+, RLE: 1+ Neurological: Yes: Confusion Labs: CBC, BMP 09/10/16 09:15 09/10/16 09:15 INR, PTT INR 0.94 (0.82-1.09) D 09/06/16 16:21 Problem List - Problems (1) Anasarca Code(s): R60.1 - GENERALIZED EDEMA (2) ESRD (end stage renal disease) on dialysis Code(s): N18.6 - END STAGE RENAL DISEASE Z99.2 - DEPENDENCE ON RENAL DIALYSIS (3) Hypotension Code(s): I95.9 - HYPOTENSION, UNSPECIFIED Qualifiers: Hypotension type: unspecified hypotension type Qualified Code(s): I95.9 - Hypotension, unspecified (4) Pleural effusion Code(s): J90 - PLEURAL EFFUSION, NOT ELSEWHERE CLASSIFIED (5) COPD (chronic obstructive pulmonary disease) Code(s): J44.9 - CHRONIC OBSTRUCTIVE PULMONARY DISEASE, UNSPECIFIED (6) Schizophrenia Code(s): F20.9 - SCHIZOPHRENIA, UNSPECIFIED (7) Bipolar 1 disorder Code(s): F31.9 - BIPOLAR DISORDER, UNSPECIFIED Assessment/Plan Current Medications Generic Name Dose Route Start Last Admin Trade Name Freq PRN Reason Stop Dose Admin Acetaminophen 650 mg 09/13/16 13:27 09/13/16 15:08 Tylenol - PO 650 mg Q6H PRN Administration PAIN Clozapine 50 mg 09/09/16 11:00 09/13/16 11:00 Clozaril - PO 50 mg BID [facility] Administration Divalproex Sodium 500 mg 09/07/16 22:00 09/12/16 22:45 Depakote *Er* - PO 500 mg HS [facility] Administration Docusate Sodium 100 mg 09/08/16 10:00 09/13/16 10:59 Colace - PO 100 mg DAILY [facility] Administration Guaifenesin 10 ml 09/07/16 19:52 09/11/16 14:04 Robitussin - PO 10 ml Q4H PRN Administration COUGH Lorazepam 1 mg 09/07/16 22:00 09/13/16 15:08 Ativan - PO 1 mg TID [facility] Administration Melatonin 3 mg 09/07/16 22:00 09/12/16 22:44 Melatonin PO 3 mg HS [facility] Administration Multivitamins/Minerals/Vitamin C 1 tab 09/08/16 10:00 09/13/16 10:59 Tab-A-Vit - PO 1 tab DAILY [facility] Administration Pantoprazole Sodium 40 mg 09/08/16 10:00 09/13/16 10:59 Protonix - PO 40 mg DAILY [facility] Administration Risperidone 2 mg 09/09/16 10:00 09/13/16 10:59 Risperdal - PO 2 mg BID [facility] Administration Trazodone HCl 50 mg 09/07/16 22:00 09/12/16 22:45 Desyrel - PO 50 mg HS [facility] Administration Impression 1. ESRD 2. fluid overload 3. complex renal cyst 4. bipolar 5. dyspnea 6. COPD 7. pleural effusion, bilateral 8. anemia 9. anasarca Plan - HD in am - cardiology follow up for echo findings - pulmonary input appreciated - cxr does not show much change - pt/rehab eval - complex renal cyst will need urology follow up - cont current meds - will follow pt Dr Aquino
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
[2016-09-13] MEDS: DIVALPROEX NA *ER* EXTEND REL 500 MG TABLET.SA (FP) PO SCH (22:52)
[2016-09-13] MEDS: traZODone HCL 50 MG TABLET (FP) PO SCH (22:53)
[2016-09-13] MEDS: MELATONIN 1 MG TABLET PO SCH (22:53)
[2016-09-14 05:25] LABS: THYROID STIMULATING HORMONE 20.6 uIU/ml (0.358-3.74)
[2016-09-14] MEDS: LORazepam 1 MG TABLET PO SCH (07:10)
[2016-09-14] MEDS ORDERED: HEPARIN NA (PORCINE) 5,000 UNITS/ML 1ML VIAL IVPUSH ONE (08:00)
[2016-09-14] MEDS ORDERED: EPOETIN ALFA 2,000 UNITS/1 ML VIAL IVPUSH ONE ×2 (08:00→12:00)
[2016-09-14] MEDS ORDERED: PT OWN MED DRAWER 7, Y5N ONE ×3 (08:07→20:08)
[2016-09-14 08:53] LABS: MCH 32.8 pg (25.7-33.7); MCHC 31.6 g/dl (32.0-36.0); MEAN CELL VOLUME 103.8 fl (80-96); MEAN PLT VOLUME 7.8 fl (7.5-11.1); PLATELET COUNT 126 K/MM3 (134-434); RDW 20.9 % (11.6-15.6); WHITE BLOOD COUNT 3.8 K/mm3 (4.0-10.0)
[2016-09-14 09:18] LABS: ALBUMIN 2.6 g/dl (3.4-5.0); BILIRUBIN,TOTAL 0.4 mg/dL (0.2-1.0); CALCIUM 10.1 mg/dL (8.5-10.1); COCKROFT - GAULT 18.19; CREATININE 4.7 mg/dL (0.55-1.02); PHOSPHOROUS 4.9 mg/dL (2.5-4.9); TOT PROT 5.6 g/dl (6.4-8.2)
[2016-09-14] MEDS: risperiDONE 1 MG TABLET (FP) PO SCH ×2 (09:27→21:26)
[2016-09-14] MEDS: MULTIVITAMINS (DAILY MVI) TABLET (FP) PO SCH (09:27)
[2016-09-14] MEDS: PANTOPRAZOLE 40 MG TABLET (FP) PO SCH (09:28)
[2016-09-14] MEDS: cloZAPine 25 MG TABLET PO SCH ×2 (09:28→21:27)
[2016-09-14] MEDS: ALBUMIN HUMAN 25% 12.5 GM/50 ML VIAL IVPB SCH ×3 (10:03→10:04)
[2016-09-14] MEDS: DOCUSATE SODIUM 100 MG CAPSULE (FP) PO SCH (10:10)
--- NOTE | 2016-09-14 13:52 | PN ---
Progress Note (short form) - Note Progress Note: Patient seen for Psych follow up: Patient appears less psychotic but can become belligerent some times. Has become more cooperative with Dialysis. PLan: Increase psych meds as ordered.
--- NOTE | 2016-09-14 14:13 | PN ---
Progress Note, Physician History of Present Illness: -stable calm.. - Current Medication List Current Medications: Active Medications Acetaminophen (Tylenol -) 650 mg PO Q6H PRN PRN Reason: PAIN Last Admin: 09/13/16 15:08 Dose: 650 mg Albumin Human (Albumin Human 25%) 12.5 gm IVPB Q30M [facility] Last Admin: 09/14/16 10:04 Dose: 12.5 gm Clozapine (Clozaril -) 50 mg PO BID [facility] Last Admin: 09/14/16 09:28 Dose: 50 mg Divalproex Sodium (Depakote *Er* -) 500 mg PO [facility] Last Admin: 09/13/16 22:52 Dose: 500 mg Docusate Sodium (Colace -) 100 mg PO DAILY [facility] Last Admin: 09/14/16 10:10 Dose: Not Given Guaifenesin (Robitussin -) 10 ml PO Q4H PRN PRN Reason: COUGH Last Admin: 09/11/16 14:04 Dose: 10 ml Lorazepam (Ativan -) 2 mg PO BID PRN PRN Reason: ANXIETY Melatonin (Melatonin) 3 mg PO [facility] Last Admin: 09/13/16 22:53 Dose: 3 mg Multivitamins/Minerals/Vitamin C (Tab-A-Vit -) 1 tab PO DAILY [facility] Last Admin: 09/14/16 09:27 Dose: 1 tab Pantoprazole Sodium (Protonix -) 40 mg PO DAILY [facility] Last Admin: 09/14/16 09:28 Dose: 40 mg Risperidone (Risperdal -) 2 mg PO BID [facility] Last Admin: 09/14/16 09:27 Dose: 2 mg Trazodone HCl (Desyrel -) 50 mg PO [facility] Last Admin: 09/13/16 22:53 Dose: 50 mg - Objective Vital Signs: Vital Signs Temperature 97.8 F 09/14/16 07:45 Pulse Rate 92 H 09/14/16 11:49 Respiratory Rate 18 09/14/16 11:49 Blood Pressure 99/42 09/14/16 11:49 O2 Sat by Pulse Oximetry (%) 92 L 09/13/16 21:00 Constitutional: Yes: No Distress HENT: Yes: Atraumatic Neck: Yes: Supple Cardiovascular: Yes: Regular Rate and Rhythm Respiratory: Yes: CTA Bilaterally Gastrointestinal: Yes: Normal Bowel Sounds Extremities: Yes: WNL Edema: LLE: 1+, RLE: 1+ Neurological: Yes: Alert, Oriented Labs: CBC, BMP 09/14/16 07:50 09/14/16 07:50 INR, PTT INR 0.94 (0.82-1.09) D 09/06/16 16:21 Problem List - Problems (1) Anasarca Assessment/Plan: on hd better pleural effusion Code(s): R60.1 - GENERALIZED EDEMA (2) Bipolar 1 disorder Code(s): F31.9 - BIPOLAR DISORDER, UNSPECIFIED (3) ESRD (end stage renal disease) on dialysis Assessment/Plan: on hd dr casillas Code(s): N18.6 - END STAGE RENAL DISEASE Z99.2 - DEPENDENCE ON RENAL DIALYSIS (4) COPD (chronic obstructive pulmonary disease) Assessment/Plan: continue home meds'duo nebs prn Code(s): J44.9 - CHRONIC OBSTRUCTIVE PULMONARY DISEASE, UNSPECIFIED (5) Schizophrenia Assessment/Plan: dc constant supervision stable Code(s): F20.9 - SCHIZOPHRENIA, UNSPECIFIED Assessment/Plan Impression 1. ESRD 2. fluid overload 3. complex renal cyst 4. bipolar 5. dyspnea 6. COPD 7. pleural effusion, bilateral 8. anemia 9. anasarca Plan -on hd fluid restriction continue home meds continue psych meds cardiology follow up for echo findings
--- NOTE | 2016-09-14 14:23 | EKG ---
Test Reason : Blood Pressure : / mmHG Vent. Rate : 107 BPM Atrial Rate : 107 BPM P-R Int : 180 ms QRS Dur : 100 ms QT Int : 328 ms P-R-T Axes : 051 069 053 degrees QTc Int : 437 ms SINUS TACHYCARDIA LOW VOLTAGE QRS BORDERLINE ECG WHEN COMPARED WITH ECG OF 09-SEP-2016 09:01, NO SIGNIFICANT CHANGE WAS FOUND Confirmed by MELLISSA YUNG MD ([id number]) on 09/14/2016 2:22:56 PM Referred By: JULY MARTINEZ Confirmed By:MELLISSA YUNG MD
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
[2016-09-14] MEDS ORDERED: ALBUTEROL SO4 0.083% IH SOL 2.5 MG/3 ML VIAL.NEB. NEB PRN (17:27)
[2016-09-14] MEDS: MELATONIN 1 MG TABLET PO SCH (21:26)
[2016-09-14] MEDS: traZODone HCL 50 MG TABLET (FP) PO SCH (21:26)
[2016-09-14] MEDS: DIVALPROEX NA *ER* EXTEND REL 500 MG TABLET.SA (FP) PO SCH (21:27)
--- NOTE | 2016-09-14 22:35 | PN ---
Progress Note, Physician Chief Complaint: Pt with periods of agitation; paranoid. For hemodialysis this am. History of Present Illness: Patient is a 56 year old white female with a significant past medical history of ESRD (on HD for 15 years), hypertension, hyperlipidemia, schizophrenia, bipolar disorder and anxiety who was sent to the ED from [facility] for SOB. Patient missed her dialysis and desaturated with O2 Sat of 79. Patient was referred to [facility] (psychiatric unit available), but brought to [place] by mistake. Allergy - penicillin PCP - Dr. Delaney - Current Medication List Current Medications: Active Medications Acetaminophen (Tylenol -) 650 mg PO Q6H PRN PRN Reason: PAIN Last Admin: 09/13/16 15:08 Dose: 650 mg Albumin Human (Albumin Human 25%) 12.5 gm IVPB Q30M [facility] Last Admin: 09/14/16 10:04 Dose: 12.5 gm Albuterol Sulfate (Ventolin 0.083% Nebulizer Soln -) 1 amp NEB Q4H PRN PRN Reason: SHORT OF BREATH/WHEEZING Clozapine (Clozaril -) 50 mg PO BID [facility] Last Admin: 09/14/16 21:27 Dose: 50 mg Divalproex Sodium (Depakote *Er* -) 500 mg PO HS [facility] Last Admin: 09/14/16 21:27 Dose: 500 mg Docusate Sodium (Colace -) 100 mg PO DAILY [facility] Last Admin: 09/14/16 10:10 Dose: Not Given Guaifenesin (Robitussin -) 10 ml PO Q4H PRN PRN Reason: COUGH Last Admin: 09/11/16 14:04 Dose: 10 ml Lorazepam (Ativan -) 2 mg PO BID PRN PRN Reason: ANXIETY Melatonin (Melatonin) 3 mg PO HS [facility] Last Admin: 09/14/16 21:26 Dose: 3 mg Multivitamins/Minerals/Vitamin C (Tab-A-Vit -) 1 tab PO DAILY [facility] Last Admin: 09/14/16 09:27 Dose: 1 tab Pantoprazole Sodium (Protonix -) 40 mg PO DAILY [facility] Last Admin: 09/14/16 09:28 Dose: 40 mg Risperidone (Risperdal -) 2 mg PO BID [facility] Last Admin: 09/14/16 21:26 Dose: 2 mg Trazodone HCl (Desyrel -) 50 mg PO HS [facility] Last Admin: 09/14/16 21:26 Dose: 50 mg - Objective Vital Signs: Vital Signs Temperature 98.3 F 09/14/16 16:10 Pulse Rate 95 H 09/14/16 16:10 Respiratory Rate 18 09/14/16 20:17 Blood Pressure 99/55 09/14/16 16:10 O2 Sat by Pulse Oximetry (%) 92 L 09/13/16 21:00 Constitutional: Yes: Mild Distress, Obese Eyes: Yes: WNL HENT: Yes: WNL Neck: Yes: WNL Cardiovascular: Yes: Regular Rate and Rhythm Respiratory: Yes: Regular ...Rectal Exam: Yes: Deferred Genitourinary: No: Anuria Musculoskeletal: Yes: Muscle Weakness Extremities: Yes: Cool Edema: No Peripheral Pulses WNL: Yes Integumentary: Yes: WNL Neurological: Yes: Weakness Psychiatric: Yes: Other Labs: CBC, BMP 09/14/16 07:50 09/14/16 07:50 INR, PTT INR 0.94 (0.82-1.09) D 09/06/16 16:21 Abnormal Lab Results 09/10/16 09/14/16 09/14/16 09:15 07:50 07:50 WBC 3.8 L RBC 2.51 L Hgb 8.2 L Hct 26.1 L MCV 103.8 H MCHC 31.6 L RDW 20.9 H Plt Count 126 L Chloride 96 L Carbon Dioxide 36 H Anion Gap 7 L BUN 34 H Creatinine 4.7 H D Random Glucose 107 H AST 11 L D ALT 11 L D Total Protein 5.6 L Albumin 2.6 L HDL Cholesterol 66 H TSH 20.60 H - ....Imaging EKG: Image Reviewed (EKG: NSR; compared to 09/09, QTc 467-->433.) Problem List - Problems (1) Bipolar 1 disorder Code(s): F31.9 - BIPOLAR DISORDER, UNSPECIFIED (2) ESRD (end stage renal disease) on dialysis Assessment/Plan: for hemodialysis todayl Code(s): N18.6 - END STAGE RENAL DISEASE Z99.2 - DEPENDENCE ON RENAL DIALYSIS (3) Pleural effusion Code(s): J90 - PLEURAL EFFUSION, NOT ELSEWHERE CLASSIFIED (4) COPD (chronic obstructive pulmonary disease) Code(s): J44.9 - CHRONIC OBSTRUCTIVE PULMONARY DISEASE, UNSPECIFIED (5) Schizophrenia Assessment/Plan: F/u with psychiatrist. Code(s): F20.9 - SCHIZOPHRENIA, UNSPECIFIED (6) HTN (hypertension) Code(s): I10 - ESSENTIAL (PRIMARY) HYPERTENSION (7) GERD (gastroesophageal reflux disease) Code(s): K21.9 - GASTRO-ESOPHAGEAL REFLUX DISEASE WITHOUT ESOPHAGITIS (8) [place] cardiac risk >20% in next 10 years Code(s): Z91.89 - [place] PERSONAL RISK FACTORS, NOT ELSEWHERE CLASSIFIED (9) Sedentary lifestyle Code(s): Z91.89 - [facility] PERSONAL RISK FACTORS, NOT ELSEWHERE CLASSIFIED (10) Pancytopenia Code(s): D61.818 - OTHER PANCYTOPENIA (11) Prolonged Q-T interval on ECG Code(s): R94.31 - ABNORMAL ELECTROCARDIOGRAM [ECG] [EKG] (12) Diastolic CHF Assessment/Plan: CXR: continued large left pleural effusion. Borderline hypotension; pancytopenia. ECHO results noted: density in LA, on MV. F/u clinically; f/u cultures. Code(s): I50.30 - UNSPECIFIED DIASTOLIC (CONGESTIVE) HEART FAILURE (13) Diabetes Assessment/Plan: elevated glucose; f/u HGBA1c (pending). Consider SLGT-2 inhibitor (e.g. Jardience). Code(s): E11.9 - TYPE 2 DIABETES MELLITUS WITHOUT COMPLICATIONS (14) Echocardiogram abnormal Assessment/Plan: TTE noted LAE lesion: artifact vs mass; ? mitral valve vegetation; possible PFO. Pancytopenic; afebrile. F/u blood cultures. Pt's psychiatric status makes granting permission for TEEE problematic. Code(s): R93.1 - ABNORMAL FINDINGS ON DX IMAGING OF HEART AND COR CIRC
--- NOTE | 2016-09-15 09:11 | PN ---
Progress Note, Physician History of Present Illness: seen and examined today in nad. no overnight events. no new complaints. - Current Medication List Current Medications: Active Medications Acetaminophen (Tylenol -) 650 mg PO Q6H PRN PRN Reason: PAIN Last Admin: 09/13/16 15:08 Dose: 650 mg Albumin Human (Albumin Human 25%) 12.5 gm IVPB Q30M [facility] Last Admin: 09/14/16 10:04 Dose: 12.5 gm Albuterol Sulfate (Ventolin 0.083% Nebulizer Soln -) 1 amp NEB Q4H PRN PRN Reason: SHORT OF BREATH/WHEEZING Clozapine (Clozaril -) 50 mg PO BID [facility] Last Admin: 09/14/16 21:27 Dose: 50 mg Divalproex Sodium (Depakote *Er* -) 500 mg PO HS [facility] Last Admin: 09/14/16 21:27 Dose: 500 mg Docusate Sodium (Colace -) 100 mg PO DAILY [facility] Last Admin: 09/14/16 10:10 Dose: Not Given Guaifenesin (Robitussin -) 10 ml PO Q4H PRN PRN Reason: COUGH Last Admin: 09/11/16 14:04 Dose: 10 ml Lorazepam (Ativan -) 2 mg PO BID PRN PRN Reason: ANXIETY Melatonin (Melatonin) 3 mg PO [facility] Last Admin: 09/14/16 21:26 Dose: 3 mg Multivitamins/Minerals/Vitamin C (Tab-A-Vit -) 1 tab PO DAILY [facility] Last Admin: 09/14/16 09:27 Dose: 1 tab Pantoprazole Sodium (Protonix -) 40 mg PO DAILY [facility] Last Admin: 09/14/16 09:28 Dose: 40 mg Risperidone (Risperdal -) 2 mg PO BID [facility] Last Admin: 09/14/16 21:26 Dose: 2 mg Trazodone HCl (Desyrel -) 50 mg PO HS [facility] Last Admin: 09/14/16 21:26 Dose: 50 mg - Objective Vital Signs: Vital Signs Temperature 98.3 F 09/14/16 16:10 Pulse Rate 95 H 09/14/16 16:10 Respiratory Rate 18 09/14/16 20:17 Blood Pressure 99/55 09/14/16 16:10 O2 Sat by Pulse Oximetry (%) 92 L 09/13/16 21:00 Constitutional: Yes: No Distress, Calm, Obese Eyes: Yes: Conjunctiva Clear, EOM Intact, PERRL HENT: Yes: Atraumatic, Normocephalic Neck: Yes: Supple, Trachea Midline Cardiovascular: Yes: Regular Rate and Rhythm, S1, S2. No: Bradycardia, Tachycardia, Pulse Irregular, Bruit, JVD, Gallop, Murmur, Rub, S3, S4, Varicosities Respiratory: Yes: Regular, Diminished. No: Rales, Rhonchi, SOB, Wheezes Gastrointestinal: Yes: Normal Bowel Sounds, Soft. No: Distention, Tenderness Musculoskeletal: Yes: Muscle Weakness Edema: LLE: Trace Peripheral Pulses WNL: Yes Peripheral Pulses: Left Doralis Pedis: 2+, Right Dorsalis Pedis: 2+ Neurological: Yes: Alert, Oriented Psychiatric: Yes: Alert, Oriented Labs: CBC, BMP 09/14/16 07:50 09/14/16 07:50 INR, PTT INR 0.94 (0.82-1.09) D 09/06/16 16:21 - ....Imaging Chest X-ray: Report Reviewed, Image Reviewed EKG: Report Reviewed, Image Reviewed Other: Report Reviewed, Image Reviewed Assessment/Plan 56 year old woman with a history of ESRD on HD, HTN, HLD, Schizophrenia/Bipolar admitted with sob, hypoxia after missing HD. SOB-pulmonary edema/pleural effusion after missing HD, acute on chronic diastolic CHF, COPD -clinically improved -cont HD for volume removal as needed/tolerates -echo showed normal LV systolic function with evidence of impaired relaxation, no pericardial effusion and confirmation of pleural effusion HTN-adequately controlled -does not require medical rx at this time
[2016-09-15] MEDS: LORazepam 1 MG TABLET PO PRN (10:08)
[2016-09-15] MEDS: risperiDONE 1 MG TABLET (FP) PO SCH ×2 (10:09→22:12)
[2016-09-15] MEDS: PANTOPRAZOLE 40 MG TABLET (FP) PO SCH (10:09)
[2016-09-15] MEDS: DOCUSATE SODIUM 100 MG CAPSULE (FP) PO SCH (10:09)
[2016-09-15] MEDS: MULTIVITAMINS (DAILY MVI) TABLET (FP) PO SCH (10:10)
[2016-09-15] MEDS: cloZAPine 25 MG TABLET PO SCH ×2 (10:11→22:18)
[2016-09-15] MEDS: ACETAMINOPHEN 325 MG TABLET (FP) PO PRN (10:13)
--- NOTE | 2016-09-15 11:31 | PN ---
Progress Note (short form) - Note Progress Note: PULMONARY Denies shortness of breath, cough or chest pain. Last Vital Signs Temp Pulse Resp BP Pulse Ox 98.3 F 99 H 18 131/77 92 L 09/14/16 16:10 09/15/16 09:07 09/15/16 09:07 09/15/16 09:07 09/13/16 21:00 Gen: NAD at rest Heart: tachycardic, regular Lung: decreased breath sounds at the bases, scattered rhonchi Abd: soft, nontender Ext: + edema CBC, BMP 09/14/16 07:50 09/14/16 07:50 Active Medications Acetaminophen (Tylenol -) 650 mg PO Q6H PRN PRN Reason: PAIN Last Admin: 09/15/16 10:13 Dose: 650 mg Albumin Human (Albumin Human 25%) 12.5 gm IVPB Q30M [facility] Last Admin: 09/14/16 10:04 Dose: 12.5 gm Albuterol Sulfate (Ventolin 0.083% Nebulizer Soln -) 1 amp NEB Q4H PRN PRN Reason: SHORT OF BREATH/WHEEZING Clozapine (Clozaril -) 50 mg PO BID [facility] Last Admin: 09/15/16 10:11 Dose: 50 mg Divalproex Sodium (Depakote *Er* -) 500 mg PO HS [facility] Last Admin: 09/14/16 21:27 Dose: 500 mg Docusate Sodium (Colace -) 100 mg PO DAILY [facility] Last Admin: 09/15/16 10:09 Dose: 100 mg Guaifenesin (Robitussin -) 10 ml PO Q4H PRN PRN Reason: COUGH Last Admin: 09/11/16 14:04 Dose: 10 ml Lorazepam (Ativan -) 2 mg PO BID PRN PRN Reason: ANXIETY Last Admin: 09/15/16 10:08 Dose: 2 mg Melatonin (Melatonin) 3 mg PO [facility] Last Admin: 09/14/16 21:26 Dose: 3 mg Multivitamins/Minerals/Vitamin C (Tab-A-Vit -) 1 tab PO DAILY [facility] Last Admin: 09/15/16 10:10 Dose: 1 tab Pantoprazole Sodium (Protonix -) 40 mg PO DAILY [facility] Last Admin: 09/15/16 10:09 Dose: 40 mg Risperidone (Risperdal -) 2 mg PO BID [facility] Last Admin: 09/15/16 10:09 Dose: 2 mg Trazodone HCl (Desyrel -) 50 mg PO HS [facility] Last Admin: 09/14/16 21:26 Dose: 50 mg A/P Chronic Pleural Effusions ESRD on HD COPD Anemia Schizophrenia - pt known from prior admissions at [facility], pleural effusions, consent and cooperation for thoracentesis have been chronic issues - CXR appears to be improving with aggressive ultrafiltration - O2 to keep SpO2 >90% - DVT prophylaxis
--- NOTE | 2016-09-15 14:06 | PN ---
Progress Note, Physician History of Present Illness: patient stable no new issues continues to be sob - Current Medication List Current Medications: Active Medications Acetaminophen (Tylenol -) 650 mg PO Q6H PRN PRN Reason: PAIN Last Admin: 09/15/16 10:13 Dose: 650 mg Albumin Human (Albumin Human 25%) 12.5 gm IVPB Q30M [facility] Last Admin: 09/14/16 10:04 Dose: 12.5 gm Albuterol Sulfate (Ventolin 0.083% Nebulizer Soln -) 1 amp NEB Q4H PRN PRN Reason: SHORT OF BREATH/WHEEZING Clozapine (Clozaril -) 50 mg PO BID [facility] Last Admin: 09/15/16 10:11 Dose: 50 mg Divalproex Sodium (Depakote *Er* -) 500 mg PO HS [facility] Last Admin: 09/14/16 21:27 Dose: 500 mg Docusate Sodium (Colace -) 100 mg PO DAILY [facility] Last Admin: 09/15/16 10:09 Dose: 100 mg Guaifenesin (Robitussin -) 10 ml PO Q4H PRN PRN Reason: COUGH Last Admin: 09/11/16 14:04 Dose: 10 ml Lorazepam (Ativan -) 2 mg PO BID PRN PRN Reason: ANXIETY Last Admin: 09/15/16 10:08 Dose: 2 mg Melatonin (Melatonin) 3 mg PO [facility] Last Admin: 09/14/16 21:26 Dose: 3 mg Multivitamins/Minerals/Vitamin C (Tab-A-Vit -) 1 tab PO DAILY [facility] Last Admin: 09/15/16 10:10 Dose: 1 tab Pantoprazole Sodium (Protonix -) 40 mg PO DAILY [facility] Last Admin: 09/15/16 10:09 Dose: 40 mg Risperidone (Risperdal -) 2 mg PO BID [facility] Last Admin: 09/15/16 10:09 Dose: 2 mg Trazodone HCl (Desyrel -) 50 mg PO HS [facility] Last Admin: 09/14/16 21:26 Dose: 50 mg - Objective Vital Signs: Vital Signs Temperature 98.3 F 09/14/16 16:10 Pulse Rate 99 H 09/15/16 09:07 Respiratory Rate 18 09/15/16 09:07 Blood Pressure 131/77 09/15/16 09:07 O2 Sat by Pulse Oximetry (%) 92 L 09/13/16 21:00 Constitutional: Yes: Calm Cardiovascular: Yes: S1, S2 Respiratory: Yes: Regular, CTA Bilaterally, On Nasal O2, Poor Air Entry (bases) Gastrointestinal: Yes: Normal Bowel Sounds, Soft Musculoskeletal: Yes: Other Extremities: Yes: Other Labs: CBC, BMP 09/14/16 07:50 09/14/16 07:50 INR, PTT INR 0.94 (0.82-1.09) D 09/06/16 16:21 Assessment/Plan Problem List - Problems (1) Anasarca Code(s): R60.1 - GENERALIZED EDEMA (2) Bipolar 1 disorder Code(s): F31.9 - BIPOLAR DISORDER, UNSPECIFIED (3) ESRD (end stage renal disease) on dialysis Code(s): N18.6 - END STAGE RENAL DISEASE Z99.2 - DEPENDENCE ON RENAL DIALYSIS (4) COPD (chronic obstructive pulmonary disease) Code(s): J44.9 - CHRONIC OBSTRUCTIVE PULMONARY DISEASE, UNSPECIFIED (5) Schizophrenia Code(s): F20.9 - SCHIZOPHRENIA, UNSPECIFIED after looking at the complete picture i do not think at the moment patient has any infection. i had a long discussion with the aptient and i explained that pleural tap will help her plan continue to monitor rest as per the primary team
--- NOTE | 2016-09-15 14:07 | PN ---
Progress Note, Physician History of Present Illness: no complaints today stable - Current Medication List Current Medications: Active Medications Acetaminophen (Tylenol -) 650 mg PO Q6H PRN PRN Reason: PAIN Last Admin: 09/15/16 10:13 Dose: 650 mg Albumin Human (Albumin Human 25%) 12.5 gm IVPB Q30M [facility] Last Admin: 09/14/16 10:04 Dose: 12.5 gm Albuterol Sulfate (Ventolin 0.083% Nebulizer Soln -) 1 amp NEB Q4H PRN PRN Reason: SHORT OF BREATH/WHEEZING Clozapine (Clozaril -) 50 mg PO BID [facility] Last Admin: 09/15/16 10:11 Dose: 50 mg Divalproex Sodium (Depakote *Er* -) 500 mg PO HS [facility] Last Admin: 09/14/16 21:27 Dose: 500 mg Docusate Sodium (Colace -) 100 mg PO DAILY [facility] Last Admin: 09/15/16 10:09 Dose: 100 mg Guaifenesin (Robitussin -) 10 ml PO Q4H PRN PRN Reason: COUGH Last Admin: 09/11/16 14:04 Dose: 10 ml Lorazepam (Ativan -) 2 mg PO BID PRN PRN Reason: ANXIETY Last Admin: 09/15/16 10:08 Dose: 2 mg Melatonin (Melatonin) 3 mg PO [facility] Last Admin: 09/14/16 21:26 Dose: 3 mg Multivitamins/Minerals/Vitamin C (Tab-A-Vit -) 1 tab PO DAILY [facility] Last Admin: 09/15/16 10:10 Dose: 1 tab Pantoprazole Sodium (Protonix -) 40 mg PO DAILY [facility] Last Admin: 09/15/16 10:09 Dose: 40 mg Risperidone (Risperdal -) 2 mg PO BID [facility] Last Admin: 09/15/16 10:09 Dose: 2 mg Trazodone HCl (Desyrel -) 50 mg PO [facility] Last Admin: 09/14/16 21:26 Dose: 50 mg - Objective Vital Signs: Vital Signs Temperature 98.3 F 09/14/16 16:10 Pulse Rate 99 H 09/15/16 09:07 Respiratory Rate 18 09/15/16 09:07 Blood Pressure 131/77 09/15/16 09:07 O2 Sat by Pulse Oximetry (%) 92 L 09/13/16 21:00 Constitutional: Yes: No Distress, Calm Cardiovascular: Yes: S1, S2 Respiratory: Yes: On Nasal O2, Poor Air Entry Gastrointestinal: Yes: Normal Bowel Sounds, Soft Musculoskeletal: Yes: Other Labs: CBC, BMP 09/14/16 07:50 09/14/16 07:50 INR, PTT INR 0.94 (0.82-1.09) D 09/06/16 16:21 Assessment/Plan Problem List - Problems (1) Anasarca Code(s): R60.1 - GENERALIZED EDEMA (2) Bipolar 1 disorder Code(s): F31.9 - BIPOLAR DISORDER, UNSPECIFIED (3) ESRD (end stage renal disease) on dialysis Code(s): N18.6 - END STAGE RENAL DISEASE Z99.2 - DEPENDENCE ON RENAL DIALYSIS (4) COPD (chronic obstructive pulmonary disease) Code(s): J44.9 - CHRONIC OBSTRUCTIVE PULMONARY DISEASE, UNSPECIFIED (5) Schizophrenia Code(s): F20.9 - SCHIZOPHRENIA, UNSPECIFIED plan continue to monitor rest as per the primary team improving with ultrafiltration still thinking about getting tapped
--- NOTE | 2016-09-15 16:11 | PN ---
Progress Note, Physician History of Present Illness: Pt seen and examined at bedside. She is confused. - Current Medication List Current Medications: Active Medications Acetaminophen (Tylenol -) 650 mg PO Q6H PRN PRN Reason: PAIN Last Admin: 09/15/16 10:13 Dose: 650 mg Albumin Human (Albumin Human 25%) 12.5 gm IVPB Q30M [facility] Last Admin: 09/14/16 10:04 Dose: 12.5 gm Albuterol Sulfate (Ventolin 0.083% Nebulizer Soln -) 1 amp NEB Q4H PRN PRN Reason: SHORT OF BREATH/WHEEZING Clozapine (Clozaril -) 50 mg PO BID [facility] Last Admin: 09/15/16 10:11 Dose: 50 mg Divalproex Sodium (Depakote *Er* -) 500 mg PO HS [facility] Last Admin: 09/14/16 21:27 Dose: 500 mg Docusate Sodium (Colace -) 100 mg PO DAILY [facility] Last Admin: 09/15/16 10:09 Dose: 100 mg Guaifenesin (Robitussin -) 10 ml PO Q4H PRN PRN Reason: COUGH Last Admin: 09/11/16 14:04 Dose: 10 ml Lorazepam (Ativan -) 2 mg PO BID PRN PRN Reason: ANXIETY Last Admin: 09/15/16 10:08 Dose: 2 mg Melatonin (Melatonin) 3 mg PO HS [facility] Last Admin: 09/14/16 21:26 Dose: 3 mg Multivitamins/Minerals/Vitamin C (Tab-A-Vit -) 1 tab PO DAILY [facility] Last Admin: 09/15/16 10:10 Dose: 1 tab Pantoprazole Sodium (Protonix -) 40 mg PO DAILY [facility] Last Admin: 09/15/16 10:09 Dose: 40 mg Risperidone (Risperdal -) 2 mg PO BID [facility] Last Admin: 09/15/16 10:09 Dose: 2 mg Trazodone HCl (Desyrel -) 50 mg PO HS [facility] Last Admin: 09/14/16 21:26 Dose: 50 mg - Objective Vital Signs: Vital Signs Temperature 98.3 F 09/14/16 16:10 Pulse Rate 99 H 09/15/16 09:07 Respiratory Rate 18 09/15/16 09:07 Blood Pressure 131/77 09/15/16 09:07 O2 Sat by Pulse Oximetry (%) 92 L 06/08/17 21:00 Constitutional: Yes: Anxious Eyes: Yes: Conjunctiva Clear HENT: Yes: Atraumatic Cardiovascular: Yes: S1, S2 Respiratory: Yes: Diminished, On Nasal O2 Gastrointestinal: Yes: Soft, Abdomen, Obese Genitourinary: Yes: Incontinence Musculoskeletal: Yes: WNL Edema: Yes Edema: RLE: 1+ Neurological: Yes: Confusion Psychiatric: Yes: Agitated Labs: CBC, BMP 09/14/16 07:50 09/14/16 07:50 INR, PTT INR 0.94 (0.82-1.09) D 09/06/16 16:21 Problem List - Problems (1) Anasarca Code(s): R60.1 - GENERALIZED EDEMA (2) ESRD (end stage renal disease) on dialysis Code(s): N18.6 - END STAGE RENAL DISEASE Z99.2 - DEPENDENCE ON RENAL DIALYSIS (3) Hypotension Code(s): I95.9 - HYPOTENSION, UNSPECIFIED Qualifiers: Hypotension type: unspecified hypotension type Qualified Code(s): I95.9 - Hypotension, unspecified (4) Pleural effusion Code(s): J90 - PLEURAL EFFUSION, NOT ELSEWHERE CLASSIFIED (5) COPD (chronic obstructive pulmonary disease) Code(s): J44.9 - CHRONIC OBSTRUCTIVE PULMONARY DISEASE, UNSPECIFIED (6) Schizophrenia Code(s): F20.9 - SCHIZOPHRENIA, UNSPECIFIED (7) Bipolar 1 disorder Code(s): F31.9 - BIPOLAR DISORDER, UNSPECIFIED Assessment/Plan Current Medications Generic Name Dose Route Start Last Admin Trade Name Freq PRN Reason Stop Dose Admin Acetaminophen 650 mg 09/13/16 13:27 09/15/16 10:13 Tylenol - PO 650 mg Q6H PRN Administration PAIN Albumin Human 12.5 gm 09/14/16 08:00 09/14/16 10:04 Albumin Human 25% IVPB 12.5 gm Q30M [facility] Administration Albuterol Sulfate 1 amp 09/14/16 17:27 Ventolin 0.083% Nebulizer Soln - NEB Q4H PRN SHORT OF BREATH/WHEEZING Clozapine 50 mg 09/09/16 11:00 09/15/16 10:11 Clozaril - PO 50 mg BID [facility] Administration Divalproex Sodium 500 mg 09/07/16 22:00 09/14/16 21:27 Depakote *Er* - PO 500 mg HS [facility] Administration Docusate Sodium 100 mg 09/08/16 10:00 09/15/16 10:09 Colace - PO 100 mg DAILY [facility] Administration Guaifenesin 10 ml 09/07/16 19:52 09/11/16 14:04 Robitussin - PO 10 ml Q4H PRN Administration COUGH Lorazepam 2 mg 09/14/16 13:53 09/15/16 10:08 Ativan - PO 2 mg BID PRN Administration ANXIETY Melatonin 3 mg 09/07/16 22:00 09/14/16 21:26 Melatonin PO 3 mg HS [facility] Administration Multivitamins/Minerals/Vitamin C 1 tab 09/08/16 10:00 09/15/16 10:10 Tab-A-Vit - PO 1 tab DAILY [facility] Administration Pantoprazole Sodium 40 mg 09/08/16 10:00 09/15/16 10:09 Protonix - PO 40 mg DAILY [facility] Administration Risperidone 2 mg 09/09/16 10:00 09/15/16 10:09 Risperdal - PO 2 mg BID [facility] Administration Trazodone HCl 50 mg 09/07/16 22:00 09/14/16 21:26 Desyrel - PO 50 mg HS [facility] Administration Impression 1. ESRD 2. fluid overload 3. complex renal cyst 4. bipolar 5. dyspnea 6. COPD 7. pleural effusion, bilateral 8. anemia 9. anasarca 10. possible lesion on heart valve 11. pancytopenia Plan - HD on Saturday - cont current meds - will continue with aggressive UF, however patient behavior makes management difficult - pt refusing thoracocentesis - follow up cultures - pt/rehab eval - complex renal cyst will need urology follow up - will follow pt Dr Aquino
[2016-09-15] MEDS: ALBUMIN HUMAN 25% 12.5 GM/50 ML VIAL IVPB SCH (17:12)
--- NOTE | 2016-09-15 18:26 | PN ---
Progress Note, Physician - Current Medication List Current Medications: Active Medications Acetaminophen (Tylenol -) 650 mg PO Q6H PRN PRN Reason: PAIN Last Admin: 09/15/16 10:13 Dose: 650 mg Albumin Human (Albumin Human 25%) 12.5 gm IVPB Q30M [facility] [place] Last Admin: 09/15/16 17:12 Dose: Not Given Albuterol Sulfate (Ventolin 0.083% Nebulizer Soln -) 1 amp NEB Q4H PRN PRN Reason: SHORT OF BREATH/WHEEZING Clozapine (Clozaril -) 50 mg PO BID [facility] [place] Last Admin: 09/15/16 10:11 Dose: 50 mg Divalproex Sodium (Depakote *Er* -) 500 mg PO HS [facility] Last Admin: 09/14/16 21:27 Dose: 500 mg Docusate Sodium (Colace -) 100 mg PO DAILY [facility] Last Admin: 09/15/16 10:09 Dose: 100 mg Guaifenesin (Robitussin -) 10 ml PO Q4H PRN PRN Reason: COUGH Last Admin: 09/11/16 14:04 Dose: 10 ml Lorazepam (Ativan -) 2 mg PO BID PRN PRN Reason: ANXIETY Last Admin: 09/15/16 10:08 Dose: 2 mg Melatonin (Melatonin) 3 mg PO [facility] Last Admin: 09/14/16 21:26 Dose: 3 mg Multivitamins/Minerals/Vitamin C (Tab-A-Vit -) 1 tab PO DAILY [facility] Last Admin: 09/15/16 10:10 Dose: 1 tab Pantoprazole Sodium (Protonix -) 40 mg PO DAILY [facility] [place] Last Admin: 09/15/16 10:09 Dose: 40 mg Risperidone (Risperdal -) 2 mg PO BID [facility] Last Admin: 09/15/16 10:09 Dose: 2 mg Trazodone HCl (Desyrel -) 50 mg PO [facility] Last Admin: 09/14/16 21:26 Dose: 50 mg - Objective Vital Signs: Vital Signs Temperature 98.3 F 09/14/16 16:10 Pulse Rate 99 H 09/15/16 09:07 Respiratory Rate 18 09/15/16 09:07 Blood Pressure 131/77 09/15/16 09:07 O2 Sat by Pulse Oximetry (%) 92 L 09/13/16 21:00 Constitutional: Yes: No Distress HENT: Yes: Atraumatic Neck: Yes: Supple Cardiovascular: Yes: Regular Rate and Rhythm Respiratory: Yes: CTA Bilaterally Gastrointestinal: Yes: Normal Bowel Sounds Extremities: Yes: WNL Neurological: Yes: Alert, Oriented Labs: CBC, BMP 09/14/16 07:50 09/14/16 07:50 INR, PTT INR 0.94 (0.82-1.09) D 09/06/16 16:21 Problem List - Problems (1) Anasarca Assessment/Plan: on hd better pleural effusion Code(s): R60.1 - GENERALIZED EDEMA (2) Bipolar 1 disorder Code(s): F31.9 - BIPOLAR DISORDER, UNSPECIFIED (3) ESRD (end stage renal disease) on dialysis Assessment/Plan: on hd dr casillas Code(s): N18.6 - END STAGE RENAL DISEASE Z99.2 - DEPENDENCE ON RENAL DIALYSIS (4) COPD (chronic obstructive pulmonary disease) Assessment/Plan: continue home meds'duo nebs prn Code(s): J44.9 - CHRONIC OBSTRUCTIVE PULMONARY DISEASE, UNSPECIFIED (5) Schizophrenia Assessment/Plan: dc constant supervision stable Code(s): F20.9 - SCHIZOPHRENIA, UNSPECIFIED Assessment/Plan Impression 1. ESRD 2. fluid overload 3. complex renal cyst 4. bipolar 5. dyspnea 6. COPD 7. pleural effusion, bilateral 8. anemia 9. anasarca Plan -on hd fluid restriction continue home meds continue psych meds cardiology follow up for echo findings
[2016-09-15] MEDS ORDERED: ONDANSETRON *ODT* 4 MG TABLET SL PRN (19:22)
[2016-09-15] MEDS ORDERED: PT OWN MED DRAWER 7, Y5N ONE (22:11)
[2016-09-15] MEDS: traZODone HCL 50 MG TABLET (FP) PO SCH (22:12)
[2016-09-15] MEDS: MELATONIN 1 MG TABLET PO SCH (22:12)
[2016-09-15] MEDS: DIVALPROEX NA *ER* EXTEND REL 500 MG TABLET.SA (FP) PO SCH (22:18)
[2016-09-16] MEDS: ALBUMIN HUMAN 25% 12.5 GM/50 ML VIAL IVPB SCH ×15 (02:53→14:37)
[2016-09-16] MEDS: DOCUSATE SODIUM 100 MG CAPSULE (FP) PO SCH (09:55)
[2016-09-16] MEDS: PANTOPRAZOLE 40 MG TABLET (FP) PO SCH (09:55)
[2016-09-16] MEDS: MULTIVITAMINS (DAILY MVI) TABLET (FP) PO SCH (09:55)
[2016-09-16] MEDS: risperiDONE 1 MG TABLET (FP) PO SCH ×2 (09:55→21:54)
[2016-09-16] MEDS: cloZAPine 25 MG TABLET PO SCH ×2 (09:56→21:55)
[2016-09-16] MEDS: LORazepam 1 MG TABLET PO PRN ×2 (10:02→21:55)
[2016-09-16] MEDS: ACETAMINOPHEN 325 MG TABLET (FP) PO PRN (10:05)
--- NOTE | 2016-09-16 11:46 | PN ---
Progress Note (short form) - Note Progress Note: PULMONARY States breathing is better. Denies cough or chest pain. Last Vital Signs Temp Pulse Resp BP Pulse Ox 98.6 F 96 H 18 110/50 98 09/15/16 22:00 09/15/16 22:00 09/15/16 22:00 09/15/16 22:00 09/15/16 21:00 Gen: NAD at rest Heart: tachycardic, regular Lung: decreased breath sounds at the bases, scattered rhonchi Abd: soft, nontender Ext: + edema CBC, BMP 09/14/16 07:50 09/14/16 07:50 Active Medications Acetaminophen (Tylenol -) 650 mg PO Q6H PRN PRN Reason: PAIN Last Admin: 09/16/16 10:05 Dose: 650 mg Albuterol Sulfate (Ventolin 0.083% Nebulizer Soln -) 1 amp NEB Q4H PRN PRN Reason: SHORT OF BREATH/WHEEZING Clozapine (Clozaril -) 50 mg PO BID [facility] Last Admin: 09/16/16 09:56 Dose: 50 mg Divalproex Sodium (Depakote *Er* -) 500 mg PO [facility] Last Admin: 09/15/16 22:18 Dose: 500 mg Docusate Sodium (Colace -) 100 mg PO DAILY [facility] Last Admin: 09/16/16 09:55 Dose: 100 mg Guaifenesin (Robitussin -) 10 ml PO Q4H PRN PRN Reason: COUGH Last Admin: 09/11/16 14:04 Dose: 10 ml Lorazepam (Ativan -) 2 mg PO BID PRN PRN Reason: ANXIETY Last Admin: 09/16/16 10:02 Dose: 2 mg Melatonin (Melatonin) 3 mg PO [facility] Last Admin: 09/15/16 22:12 Dose: 3 mg Multivitamins/Minerals/Vitamin C (Tab-A-Vit -) 1 tab PO DAILY [facility] Last Admin: 09/16/16 09:55 Dose: 1 tab Ondansetron HCl (Zofran Odt -) 4 mg SL Q6H PRN Pantoprazole Sodium (Protonix -) 40 mg PO DAILY [facility] Last Admin: 09/16/16 09:55 Dose: 40 mg Risperidone (Risperdal -) 2 mg PO BID [facility] Last Admin: 09/16/16 09:55 Dose: 2 mg Trazodone HCl (Desyrel -) 50 mg PO HS [facility] Last Admin: 09/15/16 22:12 Dose: 50 mg A/P Chronic Pleural Effusions ESRD on HD COPD Anemia Schizophrenia - pt known from prior admissions at [facility], pleural effusions, consent and cooperation for thoracentesis have been chronic issues - CXR appears to be improving with aggressive ultrafiltration, will repeat in AM - O2 to keep SpO2 >90% - DVT prophylaxis
--- NOTE | 2016-09-16 12:23 | PN ---
Progress Note, Physician History of Present Illness: no issues uncomfortable pain back main issue - Current Medication List Current Medications: Active Medications Acetaminophen (Tylenol -) 650 mg PO Q6H PRN PRN Reason: PAIN Last Admin: 09/16/16 10:05 Dose: 650 mg Albuterol Sulfate (Ventolin 0.083% Nebulizer Soln -) 1 amp NEB Q4H PRN PRN Reason: SHORT OF BREATH/WHEEZING Clozapine (Clozaril -) 50 mg PO BID [facility] Last Admin: 09/16/16 09:56 Dose: 50 mg Divalproex Sodium (Depakote *Er* -) 500 mg PO HS [facility] Last Admin: 09/15/16 22:18 Dose: 500 mg Docusate Sodium (Colace -) 100 mg PO DAILY [facility] Last Admin: 09/16/16 09:55 Dose: 100 mg Guaifenesin (Robitussin -) 10 ml PO Q4H PRN PRN Reason: COUGH Last Admin: 09/11/16 14:04 Dose: 10 ml Lorazepam (Ativan -) 2 mg PO BID PRN PRN Reason: ANXIETY Last Admin: 09/16/16 10:02 Dose: 2 mg Melatonin (Melatonin) 3 mg PO [facility] Last Admin: 09/15/16 22:12 Dose: 3 mg Multivitamins/Minerals/Vitamin C (Tab-A-Vit -) 1 tab PO DAILY [facility] Last Admin: 09/16/16 09:55 Dose: 1 tab Ondansetron HCl (Zofran Odt -) 4 mg SL Q6H PRN Pantoprazole Sodium (Protonix -) 40 mg PO DAILY [facility] Last Admin: 09/16/16 09:55 Dose: 40 mg Risperidone (Risperdal -) 2 mg PO BID [facility] Last Admin: 09/16/16 09:55 Dose: 2 mg Trazodone HCl (Desyrel -) 50 mg PO [facility] Last Admin: 09/15/16 22:12 Dose: 50 mg - Objective Vital Signs: Vital Signs Temperature 98.6 F 09/15/16 22:00 Pulse Rate 96 H 09/15/16 22:00 Respiratory Rate 18 09/15/16 22:00 Blood Pressure 110/50 09/15/16 22:00 O2 Sat by Pulse Oximetry (%) 98 09/15/16 21:00 Constitutional: Yes: Mild Distress, Other Cardiovascular: Yes: Regular Rate and Rhythm Respiratory: Yes: Regular, On Nasal O2, Poor Air Entry Gastrointestinal: Yes: Normal Bowel Sounds, Soft Musculoskeletal: Yes: Other Extremities: Yes: Other Neurological: Yes: Alert, Other Labs: CBC, BMP 09/14/16 07:50 09/14/16 07:50 INR, PTT INR 0.94 (0.82-1.09) D 09/06/16 16:21 Assessment/Plan Problem List - Problems (1) Anasarca Code(s): R60.1 - GENERALIZED EDEMA (2) Bipolar 1 disorder Code(s): F31.9 - BIPOLAR DISORDER, UNSPECIFIED (3) ESRD (end stage renal disease) on dialysis Code(s): N18.6 - END STAGE RENAL DISEASE Z99.2 - DEPENDENCE ON RENAL DIALYSIS (4) COPD (chronic obstructive pulmonary disease) Code(s): J44.9 - CHRONIC OBSTRUCTIVE PULMONARY DISEASE, UNSPECIFIED (5) Schizophrenia Code(s): F20.9 - SCHIZOPHRENIA, UNSPECIFIED plan continue to monitor rest as per the primary team continue to follow the effusions rest as per primary
--- NOTE | 2016-09-16 16:23 | PN ---
Progress Note, Physician History of Present Illness: Pt seen and examined at bedside. She remains confused. - Current Medication List Current Medications: Active Medications Acetaminophen (Tylenol -) 650 mg PO Q6H PRN PRN Reason: PAIN Last Admin: 09/16/16 10:05 Dose: 650 mg Albuterol Sulfate (Ventolin 0.083% Nebulizer Soln -) 1 amp NEB Q4H PRN PRN Reason: SHORT OF BREATH/WHEEZING Clozapine (Clozaril -) 50 mg PO BID [facility] Last Admin: 09/16/16 09:56 Dose: 50 mg Divalproex Sodium (Depakote *Er* -) 500 mg PO HS [facility] Last Admin: 09/15/16 22:18 Dose: 500 mg Docusate Sodium (Colace -) 100 mg PO DAILY [facility] Last Admin: 09/16/16 09:55 Dose: 100 mg Guaifenesin (Robitussin -) 10 ml PO Q4H PRN PRN Reason: COUGH Last Admin: 09/11/16 14:04 Dose: 10 ml Lorazepam (Ativan -) 2 mg PO BID PRN PRN Reason: ANXIETY Last Admin: 09/16/16 10:02 Dose: 2 mg Melatonin (Melatonin) 3 mg PO HS [facility] Last Admin: 09/15/16 22:12 Dose: 3 mg Multivitamins/Minerals/Vitamin C (Tab-A-Vit -) 1 tab PO DAILY [facility] Last Admin: 09/16/16 09:55 Dose: 1 tab Ondansetron HCl (Zofran Odt -) 4 mg SL Q6H PRN Pantoprazole Sodium (Protonix -) 40 mg PO DAILY [facility] Last Admin: 09/16/16 09:55 Dose: 40 mg Risperidone (Risperdal -) 2 mg PO BID [facility] Last Admin: 09/16/16 09:55 Dose: 2 mg Trazodone HCl (Desyrel -) 50 mg PO HS [facility] Last Admin: 09/15/16 22:12 Dose: 50 mg - Objective Vital Signs: Vital Signs Temperature 97.3 F L 09/16/16 10:00 Pulse Rate 97 H 09/16/16 10:00 Respiratory Rate 16 09/16/16 10:00 Blood Pressure 106/51 09/16/16 10:00 O2 Sat by Pulse Oximetry (%) 98 09/16/16 09:00 Constitutional: Yes: Calm Eyes: Yes: Conjunctiva Clear HENT: Yes: Atraumatic Cardiovascular: Yes: S1, S2 Respiratory: Yes: Diminished, On Nasal O2 Gastrointestinal: Yes: Soft, Abdomen, Obese Genitourinary: Yes: Incontinence Musculoskeletal: Yes: WNL Edema: Yes Neurological: Yes: Confusion Labs: CBC, BMP 09/14/16 07:50 09/14/16 07:50 INR, PTT INR 0.94 (0.82-1.09) D 09/06/16 16:21 Problem List - Problems (1) Anasarca Code(s): R60.1 - GENERALIZED EDEMA (2) ESRD (end stage renal disease) on dialysis Code(s): N18.6 - END STAGE RENAL DISEASE Z99.2 - DEPENDENCE ON RENAL DIALYSIS (3) Hypotension Code(s): I95.9 - HYPOTENSION, UNSPECIFIED Qualifiers: Hypotension type: unspecified hypotension type Qualified Code(s): I95.9 - Hypotension, unspecified (4) Pleural effusion Code(s): J90 - PLEURAL EFFUSION, NOT ELSEWHERE CLASSIFIED (5) COPD (chronic obstructive pulmonary disease) Code(s): J44.9 - CHRONIC OBSTRUCTIVE PULMONARY DISEASE, UNSPECIFIED (6) Schizophrenia Code(s): F20.9 - SCHIZOPHRENIA, UNSPECIFIED (7) Bipolar 1 disorder Code(s): F31.9 - BIPOLAR DISORDER, UNSPECIFIED Assessment/Plan Current Medications Generic Name Dose Route Start Last Admin Trade Name Freq PRN Reason Stop Dose Admin Acetaminophen 650 mg 09/13/16 13:27 09/16/16 10:05 Tylenol - PO 650 mg Q6H PRN Administration PAIN Albuterol Sulfate 1 amp 09/14/16 17:27 Ventolin 0.083% Nebulizer Soln - NEB Q4H PRN SHORT OF BREATH/WHEEZING Clozapine 50 mg 09/09/16 11:00 09/16/16 09:56 Clozaril - PO 50 mg BID [facility] Administration Divalproex Sodium 500 mg 09/07/16 22:00 09/15/16 22:18 Depakote *Er* - PO 500 mg HS [facility] Administration Docusate Sodium 100 mg 09/08/16 10:00 09/16/16 09:55 Colace - PO 100 mg DAILY [facility] Administration Guaifenesin 10 ml 09/07/16 19:52 09/11/16 14:04 Robitussin - PO 10 ml Q4H PRN Administration COUGH Lorazepam 2 mg 09/14/16 13:53 09/16/16 10:02 Ativan - PO 2 mg BID PRN Administration ANXIETY Melatonin 3 mg 09/07/16 22:00 09/15/16 22:12 Melatonin PO 3 mg HS [facility] Administration Multivitamins/Minerals/Vitamin C 1 tab 09/08/16 10:00 09/16/16 09:55 Tab-A-Vit - PO 1 tab DAILY [facility] Administration Ondansetron HCl 4 mg 09/15/16 19:22 Zofran Odt - SL Q6H PRN Pantoprazole Sodium 40 mg 09/08/16 10:00 09/16/16 09:55 Protonix - PO 40 mg DAILY [facility] Administration Risperidone 2 mg 09/09/16 10:00 09/16/16 09:55 Risperdal - PO 2 mg BID [facility] Administration Trazodone HCl 50 mg 09/07/16 22:00 09/15/16 22:12 Desyrel - PO 50 mg HS [facility] Administration Impression 1. ESRD 2. fluid overload 3. complex renal cyst 4. bipolar 5. dyspnea 6. COPD 7. pleural effusion, bilateral 8. anemia 9. anasarca 10. possible lesion on heart valve 11. pancytopenia Plan - will arrange for HD in am with UF - will order bloodwork - prelim for blood cultures from 09/14 is negative - cardiology follow up for the lesion seen on - cont current meds - will continue with aggressive UF, however patient behavior makes management difficult - pt refusing thoracocentesis - pt/rehab eval - complex renal cyst will need urology follow up - will follow pt Dr Aquino
--- NOTE | 2016-09-16 17:57 | PN ---
Progress Note, Physician - Current Medication List Current Medications: Active Medications Acetaminophen (Tylenol -) 650 mg PO Q6H PRN PRN Reason: PAIN Last Admin: 09/16/16 10:05 Dose: 650 mg Albumin Human (Albumin Human 25%) 12.5 gm IVPB Q30M [facility] Albuterol Sulfate (Ventolin 0.083% Nebulizer Soln -) 1 amp NEB Q4H PRN PRN Reason: SHORT OF BREATH/WHEEZING Clozapine (Clozaril -) 50 mg PO BID [facility] Last Admin: 09/16/16 09:56 Dose: 50 mg Divalproex Sodium (Depakote *Er* -) 500 mg PO HS [facility] Last Admin: 09/15/16 22:18 Dose: 500 mg Docusate Sodium (Colace -) 100 mg PO DAILY [facility] Last Admin: 09/16/16 09:55 Dose: 100 mg Epoetin Asif (Epogen -) 6,000 units IVPUSH ONCE ONE Stop: 09/17/16 16:24 Guaifenesin (Robitussin -) 10 ml PO Q4H PRN PRN Reason: COUGH Last Admin: 09/11/16 14:04 Dose: 10 ml Heparin Sodium (Porcine) (Heparin -) 1,000 unit IVPUSH ONCE ONE Stop: 09/17/16 16:24 Lorazepam (Ativan -) 2 mg PO BID PRN PRN Reason: ANXIETY Last Admin: 09/16/16 10:02 Dose: 2 mg Melatonin (Melatonin) 3 mg PO [facility] Last Admin: 09/15/16 22:12 Dose: 3 mg Multivitamins/Minerals/Vitamin C (Tab-A-Vit -) 1 tab PO DAILY [facility] Last Admin: 09/16/16 09:55 Dose: 1 tab Ondansetron HCl (Zofran Odt -) 4 mg SL Q6H PRN Pantoprazole Sodium (Protonix -) 40 mg PO DAILY [facility] Last Admin: 09/16/16 09:55 Dose: 40 mg Risperidone (Risperdal -) 2 mg PO BID [facility] Last Admin: 09/16/16 09:55 Dose: 2 mg Trazodone HCl (Desyrel -) 50 mg PO HS [facility] Last Admin: 09/15/16 22:12 Dose: 50 mg - Objective Vital Signs: Vital Signs Temperature 97.3 F L 09/16/16 10:00 Pulse Rate 97 H 09/16/16 10:00 Respiratory Rate 16 09/16/16 10:00 Blood Pressure 106/51 09/16/16 10:00 O2 Sat by Pulse Oximetry (%) 98 09/16/16 09:00 Labs: CBC, BMP 09/14/16 07:50 09/14/16 07:50 INR, PTT INR 0.94 (0.82-1.09) D 09/06/16 16:21
[2016-09-16] MEDS: MELATONIN 1 MG TABLET PO SCH (21:53)
[2016-09-16] MEDS: DIVALPROEX NA *ER* EXTEND REL 500 MG TABLET.SA (FP) PO SCH (21:54)
[2016-09-16] MEDS: traZODone HCL 50 MG TABLET (FP) PO SCH (21:54)
[2016-09-17] MEDS: LORazepam 1 MG TABLET PO PRN ×2 (09:57→11:59)
[2016-09-17] MEDS: cloZAPine 25 MG TABLET PO SCH ×2 (10:04→21:56)
[2016-09-17] MEDS: DOCUSATE SODIUM 100 MG CAPSULE (FP) PO SCH (10:05)
[2016-09-17] MEDS: PANTOPRAZOLE 40 MG TABLET (FP) PO SCH (10:05)
[2016-09-17] MEDS: risperiDONE 1 MG TABLET (FP) PO SCH ×2 (10:05→21:57)
[2016-09-17] MEDS: MULTIVITAMINS (DAILY MVI) TABLET (FP) PO SCH (10:05)
[2016-09-17] MEDS ORDERED: HEPARIN NA (PORCINE) 5,000 UNITS/ML 1ML VIAL IVPUSH ONE (11:00)
[2016-09-17] MEDS ORDERED: EPOETIN ALFA 3,000 UNIT/1 ML ML IVPUSH ONE (11:00)
--- NOTE | 2016-09-17 11:24 | PN ---
Progress Note (short form) - Note Progress Note: Reports breathing is OK. NAD on NC O2. No acute events overnight. CXR: No gross change / AYDEE is aerated Intake & Output 09/14/16 09/15/16 09/16/16 09/17/16 23:59 23:59 23:59 23:59 Intake Total 240 600 880 320 Balance 240 600 880 320 Weight 187 lb 14.4 oz 186 lb 8 oz Last Vital Signs Temp Pulse Resp BP Pulse Ox 98.4 F 105 H 18 108/70 98 09/17/16 06:00 09/17/16 06:00 09/17/16 09:00 09/17/16 06:00 09/17/16 09:00 Active Medications Acetaminophen (Tylenol -) 650 mg PO Q6H PRN PRN Reason: PAIN Last Admin: 09/16/16 10:05 Dose: 650 mg Albumin Human (Albumin Human 25%) 12.5 gm IVPB Q30M [facility] Stop: 09/17/16 12:31 Albuterol Sulfate (Ventolin 0.083% Nebulizer Soln -) 1 amp NEB Q4H PRN PRN Reason: SHORT OF BREATH/WHEEZING Last Admin: 09/17/16 05:46 Dose: 1 amp Clozapine (Clozaril -) 50 mg PO BID [facility] Last Admin: 09/17/16 10:04 Dose: Not Given Divalproex Sodium (Depakote *Er* -) 500 mg PO HS [facility] Last Admin: 09/16/16 21:54 Dose: 500 mg Docusate Sodium (Colace -) 100 mg PO DAILY [facility] Last Admin: 09/17/16 10:05 Dose: Not Given Guaifenesin (Robitussin -) 10 ml PO Q4H PRN PRN Reason: COUGH Last Admin: 09/11/16 14:04 Dose: 10 ml Lorazepam (Ativan -) 2 mg PO BID PRN PRN Reason: ANXIETY Last Admin: 09/16/16 21:55 Dose: 2 mg Melatonin (Melatonin) 3 mg PO HS [facility] Last Admin: 09/16/16 21:53 Dose: 3 mg Multivitamins/Minerals/Vitamin C (Tab-A-Vit -) 1 tab PO DAILY [facility] Last Admin: 09/17/16 10:05 Dose: Not Given Ondansetron HCl (Zofran Odt -) 4 mg SL Q6H PRN Pantoprazole Sodium (Protonix -) 40 mg PO DAILY [facility] Last Admin: 09/17/16 10:05 Dose: Not Given Risperidone (Risperdal -) 2 mg PO BID [facility] Last Admin: 09/17/16 10:05 Dose: Not Given Trazodone HCl (Desyrel -) 50 mg PO HS [facility] Last Admin: 09/16/16 21:54 Dose: 50 mg Gen: NAD at rest Heart: S1S2, regular Lung: decreased breath sounds at the bases, scattered rhonchi Abd: soft, nontender Ext: + edema A/P Chronic Pleural Effusions ESRD on HD COPD Anemia Schizophrenia - CXR appear stable from her images from recent prior admissions to [facility] (conservative management) - Continue aggressive ultrafiltration - O2 to keep SpO2 >90% - DVT prophylaxis - D/C planning Dr Pollard
[2016-09-17 13:39] LABS: MCH 32.6 pg (25.7-33.7); MCHC 31.5 g/dl (32.0-36.0); MEAN CELL VOLUME 103.6 fl (80-96); MEAN PLT VOLUME 7.6 fl (7.5-11.1); PLATELET COUNT 177 K/MM3 (134-434); RDW 20.6 % (11.6-15.6); WHITE BLOOD COUNT 3.9 K/mm3 (4.0-10.0)
--- NOTE | 2016-09-17 13:45 | PN ---
Progress Note, Physician History of Present Illness: stable no events overnight - Current Medication List Current Medications: Active Medications Acetaminophen (Tylenol -) 650 mg PO Q6H PRN PRN Reason: PAIN Last Admin: 09/16/16 10:05 Dose: 650 mg Albuterol Sulfate (Ventolin 0.083% Nebulizer Soln -) 1 amp NEB Q4H PRN PRN Reason: SHORT OF BREATH/WHEEZING Last Admin: 09/17/16 05:46 Dose: 1 amp Clozapine (Clozaril -) 50 mg PO BID [facility] Last Admin: 09/17/16 10:04 Dose: Not Given Divalproex Sodium (Depakote *Er* -) 500 mg PO [facility] Last Admin: 09/16/16 21:54 Dose: 500 mg Docusate Sodium (Colace -) 100 mg PO DAILY [facility] Last Admin: 09/17/16 10:05 Dose: Not Given Guaifenesin (Robitussin -) 10 ml PO Q4H PRN PRN Reason: COUGH Last Admin: 09/11/16 14:04 Dose: 10 ml Lorazepam (Ativan -) 2 mg PO BID PRN PRN Reason: ANXIETY Last Admin: 09/17/16 11:59 Dose: 2 mg Melatonin (Melatonin) 3 mg PO [facility] Last Admin: 09/16/16 21:53 Dose: 3 mg Multivitamins/Minerals/Vitamin C (Tab-A-Vit -) 1 tab PO DAILY [facility] Last Admin: 09/17/16 10:05 Dose: Not Given Ondansetron HCl (Zofran Odt -) 4 mg SL Q6H PRN Pantoprazole Sodium (Protonix -) 40 mg PO DAILY [facility] Last Admin: 09/17/16 10:05 Dose: Not Given Risperidone (Risperdal -) 2 mg PO BID [facility] Last Admin: 09/17/16 10:05 Dose: Not Given Trazodone HCl (Desyrel -) 50 mg PO [facility] Last Admin: 09/16/16 21:54 Dose: 50 mg - Objective Vital Signs: Vital Signs Temperature 98.8 F 09/17/16 12:45 Pulse Rate 95 H 09/17/16 13:20 Respiratory Rate 18 09/17/16 13:20 Blood Pressure 93/51 09/17/16 13:20 O2 Sat by Pulse Oximetry (%) 98 09/17/16 09:00 Constitutional: Yes: No Distress, Calm Cardiovascular: Yes: Regular Rate and Rhythm Respiratory: Yes: On Nasal O2, Poor Air Entry (bases), Rhonchi Gastrointestinal: Yes: Normal Bowel Sounds, Soft Neurological: Yes: Alert Psychiatric: Yes: Alert Labs: CBC, BMP 09/14/16 07:50 09/14/16 07:50 INR, PTT INR 0.94 (0.82-1.09) D 09/06/16 16:21 Assessment/Plan Problem List - Problems (1) Anasarca Code(s): R60.1 - GENERALIZED EDEMA (2) Bipolar 1 disorder Code(s): F31.9 - BIPOLAR DISORDER, UNSPECIFIED (3) ESRD (end stage renal disease) on dialysis Code(s): N18.6 - END STAGE RENAL DISEASE Z99.2 - DEPENDENCE ON RENAL DIALYSIS (4) COPD (chronic obstructive pulmonary disease) Code(s): J44.9 - CHRONIC OBSTRUCTIVE PULMONARY DISEASE, UNSPECIFIED (5) Schizophrenia Code(s): F20.9 - SCHIZOPHRENIA, UNSPECIFIED plan continue to monitor rest as per the primary team continue to follow the effusions rest as per primary pul on case
[2016-09-17 14:13] LABS: ALBUMIN 3.2 g/dl (3.4-5.0); CALCIUM 10.4 mg/dL (8.5-10.1)
[2016-09-17 14:19] LABS: BILIRUBIN,TOTAL 0.5 mg/dL (0.2-1.0); COCKROFT - GAULT 13.26; CREATININE 6.4 mg/dL (0.55-1.02); TOT PROT 6.4 g/dl (6.4-8.2)
[2016-09-17 14:40] LABS: ANISOCYTOSIS 2+; METAMYELOCYTE 1 % (0-2); PLATELET ESTIMATE ADEQUATE (NORMAL)
--- NOTE | 2016-09-17 15:04 | PN ---
Progress Note, Physician History of Present Illness: Patient is a 56 year old female with a significant past medical history of ESRD (on HD for 15 years), hypertension, hyperlipidemia, schizophrenia, bipolar disorder and anxiety who was sent to the ED from [facility] for SOB. Patient missed her dialysis and desaturated with O2 Sat of 79. Patient was referred to [facility], but brought to [place] by mistake. Allergy - penicillin PCP - Dr. Gunter - Current Medication List Current Medications: Active Medications Acetaminophen (Tylenol -) 650 mg PO Q6H PRN PRN Reason: PAIN Last Admin: 09/16/16 10:05 Dose: 650 mg Albuterol Sulfate (Ventolin 0.083% Nebulizer Soln -) 1 amp NEB Q4H PRN PRN Reason: SHORT OF BREATH/WHEEZING Last Admin: 09/17/16 05:46 Dose: 1 amp Clozapine (Clozaril -) 50 mg PO BID [facility] Last Admin: 09/17/16 10:04 Dose: Not Given Divalproex Sodium (Depakote *Er* -) 500 mg PO HS [facility] Last Admin: 09/16/16 21:54 Dose: 500 mg Docusate Sodium (Colace -) 100 mg PO DAILY [facility] Last Admin: 09/17/16 10:05 Dose: Not Given Guaifenesin (Robitussin -) 10 ml PO Q4H PRN PRN Reason: COUGH Last Admin: 09/11/16 14:04 Dose: 10 ml Melatonin (Melatonin) 3 mg PO HS [facility] Last Admin: 09/16/16 21:53 Dose: 3 mg Multivitamins/Minerals/Vitamin C (Tab-A-Vit -) 1 tab PO DAILY [facility] Last Admin: 09/17/16 10:05 Dose: Not Given Ondansetron HCl (Zofran Odt -) 4 mg SL Q6H PRN Pantoprazole Sodium (Protonix -) 40 mg PO DAILY [facility] Last Admin: 09/17/16 10:05 Dose: Not Given Risperidone (Risperdal -) 2 mg PO BID [facility] Last Admin: 09/17/16 10:05 Dose: Not Given Trazodone HCl (Desyrel -) 50 mg PO HS [facility] Last Admin: 09/16/16 21:54 Dose: 50 mg - Objective Vital Signs: Vital Signs Temperature 98.8 F 09/17/16 12:45 Pulse Rate 93 H 09/17/16 13:50 Respiratory Rate 18 09/17/16 13:50 Blood Pressure 82/46 09/17/16 13:50 O2 Sat by Pulse Oximetry (%) 98 09/17/16 09:00 Eyes: Yes: WNL, Conjunctiva Clear, EOM Intact HENT: Yes: WNL, Atraumatic, Normocephalic Neck: Yes: WNL, Supple, Trachea Midline Cardiovascular: Yes: WNL, Regular Rate and Rhythm Respiratory: Yes: WNL, Regular, CTA Bilaterally Gastrointestinal: Yes: WNL, Normal Bowel Sounds Genitourinary: Yes: WNL Musculoskeletal: Yes: WNL Extremities: Yes: WNL Edema: No Integumentary: Yes: WNL Neurological: Yes: WNL, Alert, Oriented ...Motor Strength: WNL Psychiatric: Yes: WNL Labs: CBC, BMP 09/17/16 12:04 09/17/16 12:04 INR, PTT INR 0.94 (0.82-1.09) D 09/06/16 16:21 Problem List - Problems (1) Anasarca Code(s): R60.1 - GENERALIZED EDEMA (2) Bipolar 1 disorder Code(s): F31.9 - BIPOLAR DISORDER, UNSPECIFIED (3) ESRD (end stage renal disease) on dialysis Code(s): N18.6 - END STAGE RENAL DISEASE Z99.2 - DEPENDENCE ON RENAL DIALYSIS (4) Hypotension Code(s): I95.9 - HYPOTENSION, UNSPECIFIED Qualifiers: Hypotension type: unspecified hypotension type Qualified Code(s): I95.9 - Hypotension, unspecified (5) Pleural effusion Code(s): J90 - PLEURAL EFFUSION, NOT ELSEWHERE CLASSIFIED (6) Abdominal pain Code(s): R10.9 - UNSPECIFIED ABDOMINAL PAIN Qualifiers: Abdominal location: unspecified location Qualified Code(s): R10.9 - Unspecified abdominal pain (7) COPD (chronic obstructive pulmonary disease) Code(s): J44.9 - CHRONIC OBSTRUCTIVE PULMONARY DISEASE, UNSPECIFIED (8) Schizophrenia Code(s): F20.9 - SCHIZOPHRENIA, UNSPECIFIED Assessment/Plan 56 year old woman with a history of ESRD on HD, HTN, HLD, Schizophrenia/Bipolar admitted with sob, hypoxia after missing HD. SOB-pulmonary edema/pleural effusion after missing HD, acute on chronic diastolic CHF, COPD -clinically improved -cont HD for volume removal as needed/tolerates -echo showed normal LV systolic function with evidence of impaired relaxation, no pericardial effusion and confirmation of pleural effusion HTN-adequately controlled -does not require medical rx at this time
[2016-09-17] MEDS: ALBUMIN HUMAN 25% 12.5 GM/50 ML VIAL IVPB SCH (15:05)
--- NOTE | 2016-09-17 15:12 | PN ---
Progress Note, Physician History of Present Illness: Pt seen and examined at bedside. She is currently getting HD. She is confused. - Current Medication List Current Medications: Active Medications Acetaminophen (Tylenol -) 650 mg PO Q6H PRN PRN Reason: PAIN Last Admin: 09/16/16 10:05 Dose: 650 mg Albuterol Sulfate (Ventolin 0.083% Nebulizer Soln -) 1 amp NEB Q4H PRN PRN Reason: SHORT OF BREATH/WHEEZING Last Admin: 09/17/16 05:46 Dose: 1 amp Clozapine (Clozaril -) 50 mg PO BID [facility] Last Admin: 09/17/16 10:04 Dose: Not Given Divalproex Sodium (Depakote *Er* -) 500 mg PO HS [facility] Last Admin: 09/16/16 21:54 Dose: 500 mg Docusate Sodium (Colace -) 100 mg PO DAILY [facility] Last Admin: 09/17/16 10:05 Dose: Not Given Guaifenesin (Robitussin -) 10 ml PO Q4H PRN PRN Reason: COUGH Last Admin: 09/11/16 14:04 Dose: 10 ml Melatonin (Melatonin) 3 mg PO HS [facility] Last Admin: 09/16/16 21:53 Dose: 3 mg Multivitamins/Minerals/Vitamin C (Tab-A-Vit -) 1 tab PO DAILY [facility] Last Admin: 09/17/16 10:05 Dose: Not Given Ondansetron HCl (Zofran Odt -) 4 mg SL Q6H PRN Pantoprazole Sodium (Protonix -) 40 mg PO DAILY [facility] Last Admin: 09/17/16 10:05 Dose: Not Given Risperidone (Risperdal -) 2 mg PO BID [facility] Last Admin: 09/17/16 10:05 Dose: Not Given Trazodone HCl (Desyrel -) 50 mg PO HS [facility] Last Admin: 09/16/16 21:54 Dose: 50 mg - Objective Vital Signs: Vital Signs Temperature 98.8 F 09/17/16 12:45 Pulse Rate 92 H 09/17/16 14:50 Respiratory Rate 18 09/17/16 14:50 Blood Pressure 102/56 09/17/16 14:50 O2 Sat by Pulse Oximetry (%) 98 09/17/16 09:00 Constitutional: Yes: Anxious Eyes: Yes: Conjunctiva Clear HENT: Yes: Atraumatic Neck: Yes: Supple Cardiovascular: Yes: S1, S2 Respiratory: Yes: CTA Bilaterally, On Nasal O2 Gastrointestinal: Yes: Soft, Abdomen, Obese Genitourinary: Yes: Incontinence Edema: Yes Edema: LLE: 1+, RLE: Trace Neurological: Yes: Confusion Labs: CBC, BMP 09/17/16 12:04 09/17/16 12:04 INR, PTT INR 0.94 (0.82-1.09) D 09/06/16 16:21 Problem List - Problems (1) Anasarca Code(s): R60.1 - GENERALIZED EDEMA (2) ESRD (end stage renal disease) on dialysis Code(s): N18.6 - END STAGE RENAL DISEASE Z99.2 - DEPENDENCE ON RENAL DIALYSIS (3) Hypotension Code(s): I95.9 - HYPOTENSION, UNSPECIFIED Qualifiers: Hypotension type: unspecified hypotension type Qualified Code(s): I95.9 - Hypotension, unspecified (4) Pleural effusion Code(s): J90 - PLEURAL EFFUSION, NOT ELSEWHERE CLASSIFIED (5) COPD (chronic obstructive pulmonary disease) Code(s): J44.9 - CHRONIC OBSTRUCTIVE PULMONARY DISEASE, UNSPECIFIED (6) Schizophrenia Code(s): F20.9 - SCHIZOPHRENIA, UNSPECIFIED (7) Bipolar 1 disorder Code(s): F31.9 - BIPOLAR DISORDER, UNSPECIFIED Assessment/Plan Current Medications Generic Name Dose Route Start Last Admin Trade Name Freq PRN Reason Stop Dose Admin Acetaminophen 650 mg 09/13/16 13:27 09/16/16 10:05 Tylenol - PO 650 mg Q6H PRN Administration PAIN Albuterol Sulfate 1 amp 09/14/16 17:27 09/17/16 05:46 Ventolin 0.083% Nebulizer Soln - NEB 1 amp Q4H PRN Administration SHORT OF BREATH/WHEEZING Clozapine 50 mg 09/09/16 11:00 09/17/16 10:04 Clozaril - PO Not Given BID [facility] Divalproex Sodium 500 mg 09/07/16 22:00 09/16/16 21:54 Depakote *Er* - PO 500 mg HS [facility] Administration Docusate Sodium 100 mg 09/08/16 10:00 09/17/16 10:05 Colace - PO Not Given DAILY [facility] Guaifenesin 10 ml 09/07/16 19:52 09/11/16 14:04 Robitussin - PO 10 ml Q4H PRN Administration COUGH Melatonin 3 mg 09/07/16 22:00 09/16/16 21:53 Melatonin PO 3 mg HS [facility] Administration Multivitamins/Minerals/Vitamin C 1 tab 09/08/16 10:00 09/17/16 10:05 Tab-A-Vit - PO Not Given DAILY [facility] Ondansetron HCl 4 mg 09/15/16 19:22 Zofran Odt - SL Q6H PRN Pantoprazole Sodium 40 mg 09/08/16 10:00 09/17/16 10:05 Protonix - PO Not Given DAILY [facility] Risperidone 2 mg 09/09/16 10:00 09/17/16 10:05 Risperdal - PO Not Given BID [facility] Trazodone HCl 50 mg 09/07/16 22:00 09/16/16 21:54 Desyrel - PO 50 mg HS [facility] Administration Impression 1. ESRD 2. fluid overload 3. complex renal cyst 4. bipolar 5. dyspnea 6. COPD 7. pleural effusion, bilateral 8. anemia 9. anasarca 10. possible lesion on heart valve 11. pancytopenia Plan - pt is getting HD - blood cultures are negative to date from 09/14 - cardiology follow up to comment on valvular lesion - will continue with aggressive UF - pt refusing thoracocentesis - pt/rehab eval - complex renal cyst will need urology follow up - will follow pt Dr Aquino
--- NOTE | 2016-09-17 20:09 | PN ---
Progress Note, Physician History of Present Illness: -stable calm.. - Current Medication List Current Medications: Active Medications Acetaminophen (Tylenol -) 650 mg PO Q6H PRN PRN Reason: PAIN Last Admin: 09/16/16 10:05 Dose: 650 mg Albuterol Sulfate (Ventolin 0.083% Nebulizer Soln -) 1 amp NEB Q4H PRN PRN Reason: SHORT OF BREATH/WHEEZING Last Admin: 09/17/16 05:46 Dose: 1 amp Clozapine (Clozaril -) 50 mg PO BID [facility] Last Admin: 09/17/16 10:04 Dose: Not Given Divalproex Sodium (Depakote *Er* -) 500 mg PO HS [facility] Last Admin: 09/16/16 21:54 Dose: 500 mg Docusate Sodium (Colace -) 100 mg PO DAILY [facility] Last Admin: 09/17/16 10:05 Dose: Not Given Guaifenesin (Robitussin -) 10 ml PO Q4H PRN PRN Reason: COUGH Last Admin: 09/11/16 14:04 Dose: 10 ml Melatonin (Melatonin) 3 mg PO [facility] Last Admin: 09/16/16 21:53 Dose: 3 mg Multivitamins/Minerals/Vitamin C (Tab-A-Vit -) 1 tab PO DAILY [facility] Last Admin: 09/17/16 10:05 Dose: Not Given Ondansetron HCl (Zofran Odt -) 4 mg SL Q6H PRN Pantoprazole Sodium (Protonix -) 40 mg PO DAILY [facility] Last Admin: 09/17/16 10:05 Dose: Not Given Risperidone (Risperdal -) 2 mg PO BID [facility] Last Admin: 09/17/16 10:05 Dose: Not Given Trazodone HCl (Desyrel -) 50 mg PO [facility] Last Admin: 09/16/16 21:54 Dose: 50 mg - Objective Vital Signs: Vital Signs Temperature 98.6 F 09/17/16 17:00 Pulse Rate 90 09/17/16 17:00 Respiratory Rate 18 09/17/16 17:00 Blood Pressure 110/80 09/17/16 17:00 O2 Sat by Pulse Oximetry (%) 98 09/17/16 09:00 Constitutional: Yes: No Distress HENT: Yes: Atraumatic Cardiovascular: Yes: Regular Rate and Rhythm Respiratory: Yes: CTA Bilaterally Gastrointestinal: Yes: Normal Bowel Sounds Extremities: Yes: WNL Edema: LLE: 2+, RLE: 2+ Neurological: Yes: Alert, Oriented Labs: CBC, BMP 09/17/16 12:04 09/17/16 12:04 INR, PTT INR 0.94 (0.82-1.09) D 09/06/16 16:21 Problem List - Problems (1) Anasarca Assessment/Plan: on hd better pleural effusion Code(s): R60.1 - GENERALIZED EDEMA (2) Bipolar 1 disorder Code(s): F31.9 - BIPOLAR DISORDER, UNSPECIFIED (3) ESRD (end stage renal disease) on dialysis Assessment/Plan: on hd dr casillas Code(s): N18.6 - END STAGE RENAL DISEASE Z99.2 - DEPENDENCE ON RENAL DIALYSIS (4) COPD (chronic obstructive pulmonary disease) Assessment/Plan: continue home meds'duo nebs prn Code(s): J44.9 - CHRONIC OBSTRUCTIVE PULMONARY DISEASE, UNSPECIFIED (5) Schizophrenia Assessment/Plan: dc constant supervision stable Code(s): F20.9 - SCHIZOPHRENIA, UNSPECIFIED Assessment/Plan Impression 1. ESRD 2. fluid overload 3. complex renal cyst 4. bipolar 5. dyspnea 6. COPD 7. pleural effusion, bilateral 8. anemia 9. anasarca Plan -on hd fluid restriction continue home meds continue psych meds BCXS NEGATIVE TO DATE
[2016-09-17] MEDS ORDERED: ACETAMINOPHEN 500 MG TABLET (FP) ONE (20:35)
[2016-09-17] MEDS ORDERED: PT OWN MED DRAWER 7, Y5N ONE (20:35)
[2016-09-17] MEDS: DIVALPROEX NA *ER* EXTEND REL 500 MG TABLET.SA (FP) PO SCH (21:56)
[2016-09-17] MEDS: traZODone HCL 50 MG TABLET (FP) PO SCH (21:56)
[2016-09-17] MEDS: MELATONIN 1 MG TABLET PO SCH (22:00)
[2016-09-18] MEDS ORDERED: PT OWN MED DRAWER 7, Y5N ONE ×2 (09:25→20:05)
--- NOTE | 2016-09-18 09:35 | PN ---
Progress Note (short form) - Note Progress Note: S./P HD yesterday. Reports feeling OK. No acute events overnight. Intake & Output 09/15/16 09/16/16 09/17/16 09/18/16 23:59 23:59 23:59 23:59 Intake Total 600 880 620 Balance 600 880 620 Weight 186 lb 8 oz Last Vital Signs Temp Pulse Resp BP Pulse Ox 98.3 F 102 H 20 98/57 98 09/18/16 06:00 09/18/16 06:00 09/18/16 06:00 09/18/16 06:00 09/17/16 21:00 Active Medications Acetaminophen (Tylenol -) 650 mg PO Q6H PRN PRN Reason: PAIN Last Admin: 09/16/16 10:05 Dose: 650 mg Albuterol Sulfate (Ventolin 0.083% Nebulizer Soln -) 1 amp NEB Q4H PRN PRN Reason: SHORT OF BREATH/WHEEZING Last Admin: 09/17/16 05:46 Dose: 1 amp Clozapine (Clozaril -) 50 mg PO BID [facility] Last Admin: 09/17/16 21:56 Dose: 50 mg Divalproex Sodium (Depakote *Er* -) 500 mg PO [facility] Last Admin: 09/17/16 21:56 Dose: 500 mg Docusate Sodium (Colace -) 100 mg PO DAILY [facility] Last Admin: 09/17/16 10:05 Dose: Not Given Guaifenesin (Robitussin -) 10 ml PO Q4H PRN PRN Reason: COUGH Last Admin: 09/11/16 14:04 Dose: 10 ml Melatonin (Melatonin) 3 mg PO [facility] Last Admin: 09/17/16 22:00 Dose: 3 mg Multivitamins/Minerals/Vitamin C (Tab-A-Vit -) 1 tab PO DAILY [facility] Last Admin: 09/17/16 10:05 Dose: Not Given Ondansetron HCl (Zofran Odt -) 4 mg SL Q6H PRN Pantoprazole Sodium (Protonix -) 40 mg PO DAILY [facility] Last Admin: 09/17/16 10:05 Dose: Not Given Risperidone (Risperdal -) 2 mg PO BID [facility] Last Admin: 09/17/16 21:57 Dose: 2 mg Trazodone HCl (Desyrel -) 50 mg PO [facility] Last Admin: 09/17/16 21:56 Dose: 50 mg Gen: NAD at rest Heart: S1S2, regular Lung: decreased breath sounds at the bases, scattered rhonchi Abd: soft, nontender Ext: + edema A/P Chronic Pleural Effusions Left > Right ESRD on HD COPD Anemia Schizophrenia - CXR appear stable from her images from recent prior admissions to [facility] (conservative management) - Continue aggressive ultrafiltration - O2 to keep SpO2 >90% - DVT prophylaxis - No Pulmonary contraindication for D/C Dr Pollard
[2016-09-18] MEDS: risperiDONE 1 MG TABLET (FP) PO SCH ×2 (09:42→23:09)
[2016-09-18] MEDS: PANTOPRAZOLE 40 MG TABLET (FP) PO SCH (09:43)
[2016-09-18] MEDS: DOCUSATE SODIUM 100 MG CAPSULE (FP) PO SCH (09:43)
[2016-09-18] MEDS: MULTIVITAMINS (DAILY MVI) TABLET (FP) PO SCH (09:43)
[2016-09-18] MEDS: cloZAPine 25 MG TABLET PO SCH ×2 (09:43→23:08)
--- NOTE | 2016-09-18 11:07 | PN ---
Progress Note, Physician History of Present Illness: Patient is a 56 year old female with a significant past medical history of ESRD (on HD for 15 years), hypertension, hyperlipidemia, schizophrenia, bipolar disorder and anxiety who was sent to the ED from [facility] for SOB. Patient missed her dialysis and desaturated with O2 Sat of 79. Patient was referred to [facility], but brought to [place] by mistake. Allergy - penicillin PCP - Dr. Gunter - Current Medication List Current Medications: Active Medications Acetaminophen (Tylenol -) 650 mg PO Q6H PRN PRN Reason: PAIN Last Admin: 09/16/16 10:05 Dose: 650 mg Albuterol Sulfate (Ventolin 0.083% Nebulizer Soln -) 1 amp NEB Q4H PRN PRN Reason: SHORT OF BREATH/WHEEZING Last Admin: 09/17/16 05:46 Dose: 1 amp Clozapine (Clozaril -) 50 mg PO BID [facility] Last Admin: 09/18/16 09:43 Dose: 50 mg Divalproex Sodium (Depakote *Er* -) 500 mg PO HS [facility] Last Admin: 09/17/16 21:56 Dose: 500 mg Docusate Sodium (Colace -) 100 mg PO DAILY [facility] Last Admin: 09/18/16 09:43 Dose: 100 mg Guaifenesin (Robitussin -) 10 ml PO Q4H PRN PRN Reason: COUGH Last Admin: 09/11/16 14:04 Dose: 10 ml Melatonin (Melatonin) 3 mg PO HS [facility] Last Admin: 09/17/16 22:00 Dose: 3 mg Multivitamins/Minerals/Vitamin C (Tab-A-Vit -) 1 tab PO DAILY [facility] Last Admin: 09/18/16 09:43 Dose: 1 tab Ondansetron HCl (Zofran Odt -) 4 mg SL Q6H PRN Pantoprazole Sodium (Protonix -) 40 mg PO DAILY [facility] Last Admin: 09/18/16 09:43 Dose: 40 mg Risperidone (Risperdal -) 2 mg PO BID [facility] Last Admin: 09/18/16 09:42 Dose: 2 mg Trazodone HCl (Desyrel -) 50 mg PO HS [facility] Last Admin: 09/17/16 21:56 Dose: 50 mg - Objective Vital Signs: Vital Signs Temperature 98.4 F 09/18/16 09:35 Pulse Rate 98 H 09/18/16 09:35 Respiratory Rate 20 09/18/16 09:35 Blood Pressure 104/68 09/18/16 09:35 O2 Sat by Pulse Oximetry (%) 98 09/17/16 21:00 Eyes: Yes: WNL, Conjunctiva Clear, EOM Intact HENT: Yes: WNL, Atraumatic, Normocephalic Neck: Yes: WNL, Supple, Trachea Midline Cardiovascular: Yes: WNL, Regular Rate and Rhythm Respiratory: Yes: WNL, Regular, CTA Bilaterally Gastrointestinal: Yes: WNL, Normal Bowel Sounds Genitourinary: Yes: WNL Musculoskeletal: Yes: WNL Extremities: Yes: WNL Edema: No Integumentary: Yes: WNL Neurological: Yes: WNL, Alert, Oriented ...Motor Strength: WNL Psychiatric: Yes: WNL Labs: CBC, BMP 09/17/16 12:04 09/17/16 12:04 INR, PTT INR 0.94 (0.82-1.09) D 09/06/16 16:21 Problem List - Problems (1) Anasarca Code(s): R60.1 - GENERALIZED EDEMA (2) Bipolar 1 disorder Code(s): F31.9 - BIPOLAR DISORDER, UNSPECIFIED (3) ESRD (end stage renal disease) on dialysis Code(s): N18.6 - END STAGE RENAL DISEASE Z99.2 - DEPENDENCE ON RENAL DIALYSIS (4) Hypotension Code(s): I95.9 - HYPOTENSION, UNSPECIFIED Qualifiers: Hypotension type: unspecified hypotension type Qualified Code(s): I95.9 - Hypotension, unspecified (5) Pleural effusion Code(s): J90 - PLEURAL EFFUSION, NOT ELSEWHERE CLASSIFIED (6) Abdominal pain Code(s): R10.9 - UNSPECIFIED ABDOMINAL PAIN Qualifiers: Abdominal location: unspecified location Qualified Code(s): R10.9 - Unspecified abdominal pain (7) COPD (chronic obstructive pulmonary disease) Code(s): J44.9 - CHRONIC OBSTRUCTIVE PULMONARY DISEASE, UNSPECIFIED (8) Schizophrenia Code(s): F20.9 - SCHIZOPHRENIA, UNSPECIFIED Assessment/Plan 56 year old woman with a history of ESRD on HD, HTN, HLD, Schizophrenia/Bipolar admitted with sob, hypoxia after missing HD. SOB-pulmonary edema/pleural effusion after missing HD, acute on chronic diastolic CHF, COPD -clinically improved -cont HD for volume removal as needed/tolerates -echo showed normal LV systolic function with evidence of impaired relaxation, no pericardial effusion and confirmation of pleural effusion HTN-adequately controlled -does not require medical rx at this time
--- NOTE | 2016-09-18 14:07 | PN ---
Progress Note, Physician History of Present Illness: stable no new events - Current Medication List Current Medications: Active Medications Acetaminophen (Tylenol -) 650 mg PO Q6H PRN PRN Reason: PAIN Last Admin: 09/16/16 10:05 Dose: 650 mg Albuterol Sulfate (Ventolin 0.083% Nebulizer Soln -) 1 amp NEB Q4H PRN PRN Reason: SHORT OF BREATH/WHEEZING Last Admin: 09/17/16 05:46 Dose: 1 amp Clozapine (Clozaril -) 50 mg PO BID [facility] Last Admin: 09/18/16 09:43 Dose: 50 mg Divalproex Sodium (Depakote *Er* -) 500 mg PO [facility] Last Admin: 09/17/16 21:56 Dose: 500 mg Docusate Sodium (Colace -) 100 mg PO DAILY [facility] Last Admin: 09/18/16 09:43 Dose: 100 mg Guaifenesin (Robitussin -) 10 ml PO Q4H PRN PRN Reason: COUGH Last Admin: 09/11/16 14:04 Dose: 10 ml Melatonin (Melatonin) 3 mg PO [facility] Last Admin: 09/17/16 22:00 Dose: 3 mg Multivitamins/Minerals/Vitamin C (Tab-A-Vit -) 1 tab PO DAILY [facility] Last Admin: 09/18/16 09:43 Dose: 1 tab Ondansetron HCl (Zofran Odt -) 4 mg SL Q6H PRN Pantoprazole Sodium (Protonix -) 40 mg PO DAILY [facility] Last Admin: 09/18/16 09:43 Dose: 40 mg Risperidone (Risperdal -) 2 mg PO BID [facility] Last Admin: 09/18/16 09:42 Dose: 2 mg Trazodone HCl (Desyrel -) 50 mg PO [facility] Last Admin: 09/17/16 21:56 Dose: 50 mg - Objective Vital Signs: Vital Signs Temperature 98.4 F 09/18/16 09:35 Pulse Rate 98 H 09/18/16 09:35 Respiratory Rate 20 09/18/16 09:35 Blood Pressure 104/68 09/18/16 09:35 O2 Sat by Pulse Oximetry (%) 98 09/17/16 21:00 Constitutional: Yes: No Distress, Calm Cardiovascular: Yes: S1, S2 Respiratory: Yes: On Nasal O2, Poor Air Entry, Rhonchi Gastrointestinal: Yes: Normal Bowel Sounds, Soft Musculoskeletal: Yes: WNL Extremities: Yes: WNL Neurological: Yes: Alert, Oriented Psychiatric: Yes: Alert Labs: CBC, BMP 09/17/16 12:04 09/17/16 12:04 INR, PTT INR 0.94 (0.82-1.09) D 09/06/16 16:21 Assessment/Plan Problem List - Problems (1) Anasarca Code(s): R60.1 - GENERALIZED EDEMA (2) Bipolar 1 disorder Code(s): F31.9 - BIPOLAR DISORDER, UNSPECIFIED (3) ESRD (end stage renal disease) on dialysis Code(s): N18.6 - END STAGE RENAL DISEASE Z99.2 - DEPENDENCE ON RENAL DIALYSIS (4) COPD (chronic obstructive pulmonary disease) Code(s): J44.9 - CHRONIC OBSTRUCTIVE PULMONARY DISEASE, UNSPECIFIED (5) Schizophrenia Code(s): F20.9 - SCHIZOPHRENIA, UNSPECIFIED plan continue to monitor patient stable no new issues rest as per pul/primary care
--- NOTE | 2016-09-18 14:34 | PN ---
Progress Note, Physician History of Present Illness: Pt seen and examined at bedside. She remains confused. - Current Medication List Current Medications: Active Medications Acetaminophen (Tylenol -) 650 mg PO Q6H PRN PRN Reason: PAIN Last Admin: 09/16/16 10:05 Dose: 650 mg Albuterol Sulfate (Ventolin 0.083% Nebulizer Soln -) 1 amp NEB Q4H PRN PRN Reason: SHORT OF BREATH/WHEEZING Last Admin: 09/17/16 05:46 Dose: 1 amp Clozapine (Clozaril -) 50 mg PO BID [facility] Last Admin: 09/18/16 09:43 Dose: 50 mg Divalproex Sodium (Depakote *Er* -) 500 mg PO HS [facility] Last Admin: 09/17/16 21:56 Dose: 500 mg Docusate Sodium (Colace -) 100 mg PO DAILY [facility] Last Admin: 09/18/16 09:43 Dose: 100 mg Guaifenesin (Robitussin -) 10 ml PO Q4H PRN PRN Reason: COUGH Last Admin: 09/11/16 14:04 Dose: 10 ml Melatonin (Melatonin) 3 mg PO [facility] Last Admin: 09/17/16 22:00 Dose: 3 mg Multivitamins/Minerals/Vitamin C (Tab-A-Vit -) 1 tab PO DAILY [facility] Last Admin: 09/18/16 09:43 Dose: 1 tab Ondansetron HCl (Zofran Odt -) 4 mg SL Q6H PRN Pantoprazole Sodium (Protonix -) 40 mg PO DAILY [facility] Last Admin: 09/18/16 09:43 Dose: 40 mg Risperidone (Risperdal -) 2 mg PO BID [facility] Last Admin: 09/18/16 09:42 Dose: 2 mg Trazodone HCl (Desyrel -) 50 mg PO HS [facility] Last Admin: 09/17/16 21:56 Dose: 50 mg - Objective Vital Signs: Vital Signs Temperature 98.4 F 09/18/16 09:35 Pulse Rate 98 H 09/18/16 09:35 Respiratory Rate 20 09/18/16 09:35 Blood Pressure 104/68 09/18/16 09:35 O2 Sat by Pulse Oximetry (%) 98 09/17/16 21:00 Constitutional: Yes: Anxious Eyes: Yes: Conjunctiva Clear HENT: Yes: Atraumatic Cardiovascular: Yes: S1, S2 Respiratory: Yes: Diminished, On Nasal O2 Gastrointestinal: Yes: Soft, Abdomen, Obese Genitourinary: Yes: Incontinence Musculoskeletal: Yes: WNL Edema: Yes Edema: LLE: 1+, RLE: Trace Neurological: Yes: Confusion Psychiatric: Yes: Agitated Labs: CBC, BMP 09/17/16 12:04 09/17/16 12:04 INR, PTT INR 0.94 (0.82-1.09) D 09/06/16 16:21 Problem List - Problems (1) Anasarca Code(s): R60.1 - GENERALIZED EDEMA (2) ESRD (end stage renal disease) on dialysis Code(s): N18.6 - END STAGE RENAL DISEASE Z99.2 - DEPENDENCE ON RENAL DIALYSIS (3) Hypotension Code(s): I95.9 - HYPOTENSION, UNSPECIFIED Qualifiers: Hypotension type: unspecified hypotension type Qualified Code(s): I95.9 - Hypotension, unspecified (4) Pleural effusion Code(s): J90 - PLEURAL EFFUSION, NOT ELSEWHERE CLASSIFIED (5) COPD (chronic obstructive pulmonary disease) Code(s): J44.9 - CHRONIC OBSTRUCTIVE PULMONARY DISEASE, UNSPECIFIED (6) Schizophrenia Code(s): F20.9 - SCHIZOPHRENIA, UNSPECIFIED (7) Bipolar 1 disorder Code(s): F31.9 - BIPOLAR DISORDER, UNSPECIFIED Assessment/Plan Current Medications Generic Name Dose Route Start Last Admin Trade Name Freq PRN Reason Stop Dose Admin Acetaminophen 650 mg 09/13/16 13:27 09/16/16 10:05 Tylenol - PO 650 mg Q6H PRN Administration PAIN Albuterol Sulfate 1 amp 09/14/16 17:27 09/17/16 05:46 Ventolin 0.083% Nebulizer Soln - NEB 1 amp Q4H PRN Administration SHORT OF BREATH/WHEEZING Clozapine 50 mg 09/09/16 11:00 09/18/16 09:43 Clozaril - PO 50 mg BID [facility] Administration Divalproex Sodium 500 mg 09/07/16 22:00 09/17/16 21:56 Depakote *Er* - PO 500 mg HS [facility] Administration Docusate Sodium 100 mg 09/08/16 10:00 09/18/16 09:43 Colace - PO 100 mg DAILY [facility] Administration Guaifenesin 10 ml 09/07/16 19:52 09/11/16 14:04 Robitussin - PO 10 ml Q4H PRN Administration COUGH Melatonin 3 mg 09/07/16 22:00 09/17/16 22:00 Melatonin PO 3 mg HS [facility] Administration Multivitamins/Minerals/Vitamin C 1 tab 09/08/16 10:00 09/18/16 09:43 Tab-A-Vit - PO 1 tab DAILY [facility] Administration Ondansetron HCl 4 mg 09/15/16 19:22 Zofran Odt - SL Q6H PRN Pantoprazole Sodium 40 mg 09/08/16 10:00 09/18/16 09:43 Protonix - PO 40 mg DAILY [facility] Administration Risperidone 2 mg 09/09/16 10:00 09/18/16 09:42 Risperdal - PO 2 mg BID [facility] Administration Trazodone HCl 50 mg 09/07/16 22:00 09/17/16 21:56 Desyrel - PO 50 mg HS [facility] Administration Impression 1. ESRD 2. fluid overload 3. complex renal cyst 4. bipolar 5. dyspnea 6. COPD 7. pleural effusion, bilateral 8. anemia 9. anasarca 10. possible lesion on heart valve 11. pancytopenia Plan - HD in am - blood cultures from 09/14 are negative - cardiology to comment on echo findings - will continue with aggressive UF - pt refusing thoracocentesis - pt/rehab eval - complex renal cyst will need urology follow up - will follow pt Dr Aquino
--- NOTE | 2016-09-18 18:32 | PN ---
Progress Note, Physician History of Present Illness: -stable calm.. - Current Medication List Current Medications: Active Medications Acetaminophen (Tylenol -) 650 mg PO Q6H PRN PRN Reason: PAIN Last Admin: 09/16/16 10:05 Dose: 650 mg Albuterol Sulfate (Ventolin 0.083% Nebulizer Soln -) 1 amp NEB Q4H PRN PRN Reason: SHORT OF BREATH/WHEEZING Last Admin: 09/17/16 05:46 Dose: 1 amp Clozapine (Clozaril -) 50 mg PO BID [facility] Last Admin: 09/18/16 09:43 Dose: 50 mg Divalproex Sodium (Depakote *Er* -) 500 mg PO HS [facility] Last Admin: 09/17/16 21:56 Dose: 500 mg Docusate Sodium (Colace -) 100 mg PO DAILY [facility] Last Admin: 09/18/16 09:43 Dose: 100 mg Epoetin Asif (Epogen -) 6,000 units IVPUSH ONCE ONE Stop: 09/19/16 14:35 Guaifenesin (Robitussin -) 10 ml PO Q4H PRN PRN Reason: COUGH Last Admin: 09/11/16 14:04 Dose: 10 ml Heparin Sodium (Porcine) (Heparin -) 1,000 unit IVPUSH ONCE ONE Stop: 09/19/16 14:35 Melatonin (Melatonin) 3 mg PO [facility] Last Admin: 09/17/16 22:00 Dose: 3 mg Multivitamins/Minerals/Vitamin C (Tab-A-Vit -) 1 tab PO DAILY [facility] Last Admin: 09/18/16 09:43 Dose: 1 tab Ondansetron HCl (Zofran Odt -) 4 mg SL Q6H PRN Pantoprazole Sodium (Protonix -) 40 mg PO DAILY [facility] Last Admin: 09/18/16 09:43 Dose: 40 mg Risperidone (Risperdal -) 2 mg PO BID [facility] Last Admin: 09/18/16 09:42 Dose: 2 mg Trazodone HCl (Desyrel -) 50 mg PO HS [facility] Last Admin: 09/17/16 21:56 Dose: 50 mg - Objective Vital Signs: Vital Signs Temperature 97.8 F 09/18/16 17:19 Pulse Rate 78 09/18/16 17:19 Respiratory Rate 20 09/18/16 17:19 Blood Pressure 133/78 09/18/16 17:19 O2 Sat by Pulse Oximetry (%) 98 09/18/16 09:00 Constitutional: Yes: No Distress HENT: Yes: Atraumatic Neck: Yes: Supple Cardiovascular: Yes: Regular Rate and Rhythm Respiratory: Yes: CTA Bilaterally Gastrointestinal: Yes: Normal Bowel Sounds Edema: No Neurological: Yes: Alert Labs: CBC, BMP 09/17/16 12:04 09/17/16 12:04 INR, PTT INR 0.94 (0.82-1.09) D 09/06/16 16:21 Problem List - Problems (1) Anasarca Assessment/Plan: on hd better pleural effusion Code(s): R60.1 - GENERALIZED EDEMA (2) Bipolar 1 disorder Code(s): F31.9 - BIPOLAR DISORDER, UNSPECIFIED (3) ESRD (end stage renal disease) on dialysis Assessment/Plan: on hd dr casillas Code(s): N18.6 - END STAGE RENAL DISEASE Z99.2 - DEPENDENCE ON RENAL DIALYSIS (4) COPD (chronic obstructive pulmonary disease) Assessment/Plan: continue home meds'duo nebs prn Code(s): J44.9 - CHRONIC OBSTRUCTIVE PULMONARY DISEASE, UNSPECIFIED (5) Schizophrenia Assessment/Plan: dc constant supervision stable Code(s): F20.9 - SCHIZOPHRENIA, UNSPECIFIED (6) Anemia Assessment/Plan: will transfuse 1 u prbsc with hd Code(s): D64.9 - ANEMIA, UNSPECIFIED Assessment/Plan Impression 1. ESRD 2. fluid overload 3. complex renal cyst 4. bipolar 5. dyspnea 6. COPD 7. pleural effusion, bilateral 8. anemia 9. anasarca Plan -on hd fluid restriction continue home meds continue psych meds BCXS NEGATIVE TO DATE CARDIOLOGY TO ADDRESS ECHO FINDINGS OF VEGETATION ON MITRAL VALVE?
[2016-09-18] MEDS: MELATONIN 1 MG TABLET PO SCH (22:00)
[2016-09-18] MEDS: DIVALPROEX NA *ER* EXTEND REL 500 MG TABLET.SA (FP) PO SCH (23:08)
[2016-09-18] MEDS: traZODone HCL 50 MG TABLET (FP) PO SCH (23:09)
[2016-09-19] MEDS ORDERED: PT OWN MED DRAWER 7, Y5N ONE (09:49)
[2016-09-19] MEDS: risperiDONE 1 MG TABLET (FP) PO SCH (10:10)
[2016-09-19] MEDS: PANTOPRAZOLE 40 MG TABLET (FP) PO SCH (10:10)
[2016-09-19] MEDS: cloZAPine 25 MG TABLET PO SCH (10:11)
[2016-09-19] MEDS: DOCUSATE SODIUM 100 MG CAPSULE (FP) PO SCH (10:11)
--- NOTE | 2016-09-19 11:50 | PN ---
Progress Note, Physician History of Present Illness: Patient is a 56 year old female with a significant past medical history of ESRD (on HD for 15 years), hypertension, hyperlipidemia, schizophrenia, bipolar disorder and anxiety who was sent to the ED from [facility] for SOB. Patient missed her dialysis and desaturated with O2 Sat of 79. Patient was referred to [facility], but brought to [place] by mistake. Allergy - penicillin PCP - Dr. Gunter - Current Medication List Current Medications: Active Medications Acetaminophen (Tylenol -) 650 mg PO Q6H PRN PRN Reason: PAIN Last Admin: 09/16/16 10:05 Dose: 650 mg Albuterol Sulfate (Ventolin 0.083% Nebulizer Soln -) 1 amp NEB Q4H PRN PRN Reason: SHORT OF BREATH/WHEEZING Last Admin: 09/17/16 05:46 Dose: 1 amp Clozapine (Clozaril -) 50 mg PO BID [facility] Last Admin: 09/19/16 10:11 Dose: 50 mg Divalproex Sodium (Depakote *Er* -) 500 mg PO HS [facility] Last Admin: 09/18/16 23:08 Dose: 500 mg Docusate Sodium (Colace -) 100 mg PO DAILY [facility] Last Admin: 09/19/16 10:11 Dose: Not Given Epoetin Asif (Epogen -) 6,000 units IVPUSH ONCE ONE Stop: 09/19/16 14:35 Guaifenesin (Robitussin -) 10 ml PO Q4H PRN PRN Reason: COUGH Last Admin: 09/11/16 14:04 Dose: 10 ml Heparin Sodium (Porcine) (Heparin -) 1,000 unit IVPUSH ONCE ONE Stop: 09/19/16 14:35 Melatonin (Melatonin) 3 mg PO HS [facility] Last Admin: 09/18/16 22:00 Dose: Not Given Multivitamins/Minerals/Vitamin C (Tab-A-Vit -) 1 tab PO DAILY [facility] Last Admin: 09/18/16 09:43 Dose: 1 tab Ondansetron HCl (Zofran Odt -) 4 mg SL Q6H PRN Last Admin: 09/19/16 10:09 Dose: 4 mg Pantoprazole Sodium (Protonix -) 40 mg PO DAILY [facility] Last Admin: 09/19/16 10:10 Dose: 40 mg Risperidone (Risperdal -) 2 mg PO BID [facility] Last Admin: 09/19/16 10:10 Dose: 2 mg Trazodone HCl (Desyrel -) 50 mg PO [facility] Last Admin: 09/18/16 23:09 Dose: 50 mg - Objective Vital Signs: Vital Signs Temperature 98.2 F 09/19/16 10:03 Pulse Rate 90 09/19/16 10:03 Respiratory Rate 18 09/19/16 10:03 Blood Pressure 104/74 09/19/16 10:03 O2 Sat by Pulse Oximetry (%) 98 09/18/16 09:00 Eyes: Yes: WNL, Conjunctiva Clear, EOM Intact HENT: Yes: WNL, Atraumatic, Normocephalic Neck: Yes: WNL, Supple, Trachea Midline Cardiovascular: Yes: WNL, Regular Rate and Rhythm Respiratory: Yes: WNL, Regular, CTA Bilaterally Gastrointestinal: Yes: WNL, Normal Bowel Sounds Genitourinary: Yes: WNL Musculoskeletal: Yes: WNL Extremities: Yes: WNL Edema: No Integumentary: Yes: WNL Neurological: Yes: WNL, Alert, Oriented ...Motor Strength: WNL Psychiatric: Yes: WNL Labs: CBC, BMP 09/17/16 12:04 09/17/16 12:04 INR, PTT INR 0.94 (0.82-1.09) D 09/06/16 16:21 Problem List - Problems (1) Anasarca Code(s): R60.1 - GENERALIZED EDEMA (2) Bipolar 1 disorder Code(s): F31.9 - BIPOLAR DISORDER, UNSPECIFIED (3) ESRD (end stage renal disease) on dialysis Code(s): N18.6 - END STAGE RENAL DISEASE Z99.2 - DEPENDENCE ON RENAL DIALYSIS (4) Hypotension Code(s): I95.9 - HYPOTENSION, UNSPECIFIED Qualifiers: Hypotension type: unspecified hypotension type Qualified Code(s): I95.9 - Hypotension, unspecified (5) Pleural effusion Code(s): J90 - PLEURAL EFFUSION, NOT ELSEWHERE CLASSIFIED (6) Abdominal pain Code(s): R10.9 - UNSPECIFIED ABDOMINAL PAIN Qualifiers: Abdominal location: unspecified location Qualified Code(s): R10.9 - Unspecified abdominal pain (7) COPD (chronic obstructive pulmonary disease) Code(s): J44.9 - CHRONIC OBSTRUCTIVE PULMONARY DISEASE, UNSPECIFIED (8) Schizophrenia Code(s): F20.9 - SCHIZOPHRENIA, UNSPECIFIED Assessment/Plan 56 year old woman with a history of ESRD on HD, HTN, HLD, Schizophrenia/Bipolar admitted with sob, hypoxia after missing HD. SOB-pulmonary edema/pleural effusion after missing HD, acute on chronic diastolic CHF, COPD -clinically improved -cont HD for volume removal as needed/tolerates -echo showed normal LV systolic function with evidence of impaired relaxation, no pericardial effusion and confirmation of pleural effusion HTN-adequately controlled -does not require medical rx at this time
[2016-09-19] MEDS ORDERED: LORazepam 1 MG TABLET PO PRN (13:07)
--- NOTE | 2016-09-19 13:20 | DS ---
Physical Examination Vital Signs: Vital Signs Temperature 98.2 F 09/19/16 10:03 Pulse Rate 96 H 09/19/16 12:12 Respiratory Rate 18 09/19/16 10:03 Blood Pressure 104/74 09/19/16 10:03 O2 Sat by Pulse Oximetry (%) 97 09/19/16 12:12 Constitutional: Yes: No Distress HENT: Yes: Atraumatic Neck: Yes: Supple Cardiovascular: Yes: Regular Rate and Rhythm Respiratory: Yes: CTA Bilaterally Gastrointestinal: Yes: Normal Bowel Sounds Extremities: Yes: WNL Neurological: Yes: Alert, Oriented Labs: CBC, BMP 09/17/16 12:04 09/17/16 12:04 Discharge Summary Reason For Visit: GERNERALIZED EDEMA Current Active Problems Anasarca (Acute) Anemia (Acute) Bipolar 1 disorder (Acute) Diabetes (Acute) Diastolic CHF (Acute) ESRD (end stage renal disease) on dialysis (Acute) Echocardiogram abnormal (Acute) [place] cardiac risk >20% in next 10 years (Acute) GERD (gastroesophageal reflux disease) (Acute) HTN (hypertension) (Acute) Hypotension (Acute) Pancytopenia (Acute) Pleural effusion (Acute) Prolonged Q-T interval on ECG (Acute) Sedentary lifestyle (Acute) - Instructions Referrals: Yg Delaney [Primary Care Provider] - - Home Medications Comprehensive Discharge Medication List: Ambulatory Orders Acetaminophen [Pain Relief] 325 mg PO QID 09/06/16 Albuterol 0.083% Nebulizer Alejandra [Ventolin 0.083% Nebulizer Soln -] 1 neb NEB Q4H 09/06/16 Divalproex *ER* [Depakote *ER* -] 500 mg PO HS 09/06/16 Docusate Sodium [Colace -] 100 mg PO DAILY 09/06/16 Folic Acid/Vit Bcomp,C [Dialyvite Tablet] 1 each PO DAILY 09/06/16 Ipratropium 0.02% Nebulizer [Atrovent 0.02% Nebulizer -] 1 neb NEB QID 09/06/16 Lorazepam 1 mg PO TID 09/06/16 Melatonin 3 mg PO HS 09/06/16 Pantoprazole Sodium 40 mg PO DAILY 09/06/16 Tramadol HCl 50 mg PO BID 09/06/16 Trazodone HCl 50 mg PO HS 06/01/17 Ziprasidone [Geodon -] 80 mg PO BID 09/06/16 Risperidone [Risperdal -] 2 mg PO BID #0 tablet 09/13/16 dc to snf
--- NOTE | 2016-09-19 13:28 | PN ---
Progress Note, Physician History of Present Illness: Patient is a 56 year old female with a significant past medical history of ESRD (on HD for 15 years), hypertension, hyperlipidemia, schizophrenia, bipolar disorder and anxiety who was sent to the ED from [facility] for SOB. Patient missed her dialysis and desaturated with O2 Sat of 79. Patient was referred to [facility], but brought to [place] by mistake. Allergy - penicillin PCP - Dr. Gunter - Current Medication List Current Medications: Active Medications Acetaminophen (Tylenol -) 650 mg PO Q6H PRN PRN Reason: PAIN Last Admin: 09/16/16 10:05 Dose: 650 mg Albuterol Sulfate (Ventolin 0.083% Nebulizer Soln -) 1 amp NEB Q4H PRN PRN Reason: SHORT OF BREATH/WHEEZING Last Admin: 09/17/16 05:46 Dose: 1 amp Clozapine (Clozaril -) 50 mg PO BID [facility] Last Admin: 09/19/16 10:11 Dose: 50 mg Divalproex Sodium (Depakote *Er* -) 500 mg PO HS [facility] Last Admin: 09/18/16 23:08 Dose: 500 mg Docusate Sodium (Colace -) 100 mg PO DAILY [facility] Last Admin: 09/19/16 10:11 Dose: Not Given Epoetin Asif (Epogen -) 6,000 units IVPUSH ONCE ONE Stop: 09/19/16 14:35 Guaifenesin (Robitussin -) 10 ml PO Q4H PRN PRN Reason: COUGH Last Admin: 09/11/16 14:04 Dose: 10 ml Heparin Sodium (Porcine) (Heparin -) 1,000 unit IVPUSH ONCE ONE Stop: 09/19/16 14:35 Lorazepam (Ativan -) 1 mg PO TID PRN PRN Reason: ANXIETY Lorazepam (Ativan -) 2 mg PO [employer] [facility] Stop: 09/19/16 16:00 Melatonin (Melatonin) 3 mg PO HS [facility] Last Admin: 09/18/16 22:00 Dose: Not Given Multivitamins/Minerals/Vitamin C (Tab-A-Vit -) 1 tab PO DAILY [facility] Last Admin: 09/18/16 09:43 Dose: 1 tab Ondansetron HCl (Zofran Odt -) 4 mg SL Q6H PRN Last Admin: 09/19/16 10:09 Dose: 4 mg Pantoprazole Sodium (Protonix -) 40 mg PO DAILY [facility] Last Admin: 09/19/16 10:10 Dose: 40 mg Risperidone (Risperdal -) 2 mg PO BID [facility] Last Admin: 09/19/16 10:10 Dose: 2 mg Trazodone HCl (Desyrel -) 50 mg PO HS [facility] Last Admin: 09/18/16 23:09 Dose: 50 mg - Objective Vital Signs: Vital Signs Temperature 98.2 F 09/19/16 10:03 Pulse Rate 96 H 09/19/16 12:12 Respiratory Rate 18 09/19/16 10:03 Blood Pressure 104/74 09/19/16 10:03 O2 Sat by Pulse Oximetry (%) 97 09/19/16 12:12 Eyes: Yes: WNL, Conjunctiva Clear, EOM Intact HENT: Yes: WNL, Atraumatic, Normocephalic Neck: Yes: WNL, Supple, Trachea Midline Cardiovascular: Yes: WNL, Regular Rate and Rhythm Respiratory: Yes: WNL, Regular, CTA Bilaterally Gastrointestinal: Yes: WNL, Normal Bowel Sounds Genitourinary: Yes: WNL Musculoskeletal: Yes: WNL Extremities: Yes: WNL Edema: No Integumentary: Yes: WNL Neurological: Yes: WNL, Alert, Oriented ...Motor Strength: WNL Psychiatric: Yes: WNL Labs: CBC, BMP 09/17/16 12:04 09/17/16 12:04 INR, PTT INR 0.94 (0.82-1.09) D 09/06/16 16:21 Problem List - Problems (1) Anasarca Code(s): R60.1 - GENERALIZED EDEMA (2) Bipolar 1 disorder Code(s): F31.9 - BIPOLAR DISORDER, UNSPECIFIED (3) ESRD (end stage renal disease) on dialysis Code(s): N18.6 - END STAGE RENAL DISEASE Z99.2 - DEPENDENCE ON RENAL DIALYSIS (4) Hypotension Code(s): I95.9 - HYPOTENSION, UNSPECIFIED Qualifiers: Hypotension type: unspecified hypotension type Qualified Code(s): I95.9 - Hypotension, unspecified (5) Pleural effusion Code(s): J90 - PLEURAL EFFUSION, NOT ELSEWHERE CLASSIFIED (6) Abdominal pain Code(s): R10.9 - UNSPECIFIED ABDOMINAL PAIN Qualifiers: Abdominal location: unspecified location Qualified Code(s): R10.9 - Unspecified abdominal pain (7) COPD (chronic obstructive pulmonary disease) Code(s): J44.9 - CHRONIC OBSTRUCTIVE PULMONARY DISEASE, UNSPECIFIED (8) Schizophrenia Code(s): F20.9 - SCHIZOPHRENIA, UNSPECIFIED Assessment/Plan patient refused KATHRYN could be d/c if cleared by ID
[2016-09-19] MEDS ORDERED: LORazepam 1 MG TABLET PO SCH (13:30)
[2016-09-19] MEDS: MULTIVITAMINS (DAILY MVI) TABLET (FP) PO SCH (13:31)
--- NOTE | 2016-09-19 13:50 | PN ---
Progress Note, Physician History of Present Illness: stable no events overnight - Current Medication List Current Medications: Active Medications Acetaminophen (Tylenol -) 650 mg PO Q6H PRN PRN Reason: PAIN Last Admin: 09/16/16 10:05 Dose: 650 mg Albuterol Sulfate (Ventolin 0.083% Nebulizer Soln -) 1 amp NEB Q4H PRN PRN Reason: SHORT OF BREATH/WHEEZING Last Admin: 09/17/16 05:46 Dose: 1 amp Clozapine (Clozaril -) 50 mg PO BID [facility] Last Admin: 09/19/16 10:11 Dose: 50 mg Divalproex Sodium (Depakote *Er* -) 500 mg PO HS [facility] Last Admin: 09/18/16 23:08 Dose: 500 mg Docusate Sodium (Colace -) 100 mg PO DAILY [facility] Last Admin: 09/19/16 10:11 Dose: Not Given Epoetin Asif (Epogen -) 6,000 units IVPUSH ONCE ONE Stop: 09/19/16 14:35 Guaifenesin (Robitussin -) 10 ml PO Q4H PRN PRN Reason: COUGH Last Admin: 09/11/16 14:04 Dose: 10 ml Heparin Sodium (Porcine) (Heparin -) 1,000 unit IVPUSH ONCE ONE Stop: 09/19/16 14:35 Lorazepam (Ativan -) 1 mg PO TID PRN PRN Reason: ANXIETY Lorazepam (Ativan -) 2 mg PO [place] [facility] Stop: 09/19/16 16:00 Last Admin: 09/19/16 13:31 Dose: 2 mg Melatonin (Melatonin) 3 mg PO [facility] Last Admin: 09/18/16 22:00 Dose: Not Given Multivitamins/Minerals/Vitamin C (Tab-A-Vit -) 1 tab PO DAILY [facility] Last Admin: 09/19/16 13:31 Dose: 1 tab Ondansetron HCl (Zofran Odt -) 4 mg SL Q6H PRN Last Admin: 09/19/16 10:09 Dose: 4 mg Pantoprazole Sodium (Protonix -) 40 mg PO DAILY [facility] Last Admin: 09/19/16 10:10 Dose: 40 mg Risperidone (Risperdal -) 2 mg PO BID [facility] Last Admin: 09/19/16 10:10 Dose: 2 mg Trazodone HCl (Desyrel -) 50 mg PO HS [facility] Last Admin: 09/18/16 23:09 Dose: 50 mg - Objective Vital Signs: Vital Signs Temperature 98.2 F 09/19/16 10:03 Pulse Rate 96 H 09/19/16 12:12 Respiratory Rate 18 09/19/16 10:03 Blood Pressure 104/74 09/19/16 10:03 O2 Sat by Pulse Oximetry (%) 97 09/19/16 12:12 Constitutional: Yes: No Distress, Calm, Obese Cardiovascular: Yes: Regular Rate and Rhythm Respiratory: Yes: Regular, On Nasal O2, Poor Air Entry (both lower lobes) Gastrointestinal: Yes: Normal Bowel Sounds, Soft Musculoskeletal: Yes: Other Extremities: Yes: Other Neurological: Yes: Alert Labs: CBC, BMP 09/17/16 12:04 09/17/16 12:04 INR, PTT INR 0.94 (0.82-1.09) D 09/06/16 16:21 Assessment/Plan Problem List - Problems (1) Anasarca Code(s): R60.1 - GENERALIZED EDEMA (2) Bipolar 1 disorder Code(s): F31.9 - BIPOLAR DISORDER, UNSPECIFIED (3) ESRD (end stage renal disease) on dialysis Code(s): N18.6 - END STAGE RENAL DISEASE Z99.2 - DEPENDENCE ON RENAL DIALYSIS (4) COPD (chronic obstructive pulmonary disease) Code(s): J44.9 - CHRONIC OBSTRUCTIVE PULMONARY DISEASE, UNSPECIFIED (5) Schizophrenia Code(s): F20.9 - SCHIZOPHRENIA, UNSPECIFIED plan continue to monitor rest as per the primary team continue to follow the effusions rest as per primary pul on case from ID point of view no treatment required
[2016-09-19] MEDS ORDERED: HEPARIN NA (PORCINE) 5,000 UNITS/ML 1ML VIAL IVPUSH ONE (14:34)
[2016-09-19 14:37] VITALS: TEMP 97.8
[2016-09-19] MEDS ORDERED: EPOETIN ALFA 3,000 UNIT/1 ML ML IVPUSH ONE (14:45)
[2016-09-19 15:17] LABS: MCH 32.4 pg (25.7-33.7); MCHC 30.9 g/dl (32.0-36.0); MEAN PLT VOLUME 7.7 fl (7.5-11.1); PLATELET COUNT 187 K/MM3 (134-434); RDW 21.3 % (11.6-15.6)
[2016-09-19 16:55] LABS: ALBUMIN 3.1 g/dl (3.4-5.0); BILIRUBIN,TOTAL 0.3 mg/dL (0.2-1.0); CALCIUM 9.8 mg/dL (8.5-10.1); COCKROFT - GAULT 21.097; TOT PROT 6.5 g/dl (6.4-8.2)
[2016-09-19 17:35] VITALS: BP 86/48; PULSE 64
--- NOTE | 2016-09-19 18:18 | PN ---
Progress Note, Physician History of Present Illness: Pt seen and examined. She tolerated HD. - Current Medication List Current Medications: Active Medications Acetaminophen (Tylenol -) 650 mg PO Q6H PRN PRN Reason: PAIN Last Admin: 09/16/16 10:05 Dose: 650 mg Clozapine (Clozaril -) 50 mg PO BID [facility] Last Admin: 09/19/16 10:11 Dose: 50 mg Divalproex Sodium (Depakote *Er* -) 500 mg PO [facility] Last Admin: 09/18/16 23:08 Dose: 500 mg Docusate Sodium (Colace -) 100 mg PO DAILY [facility] Last Admin: 09/19/16 10:11 Dose: Not Given Guaifenesin (Robitussin -) 10 ml PO Q4H PRN PRN Reason: COUGH Last Admin: 09/11/16 14:04 Dose: 10 ml Lorazepam (Ativan -) 1 mg PO TID PRN PRN Reason: ANXIETY Melatonin (Melatonin) 3 mg PO [facility] Last Admin: 09/18/16 22:00 Dose: Not Given Multivitamins/Minerals/Vitamin C (Tab-A-Vit -) 1 tab PO DAILY [facility] Last Admin: 09/19/16 13:31 Dose: 1 tab Ondansetron HCl (Zofran Odt -) 4 mg SL Q6H PRN Last Admin: 09/19/16 10:09 Dose: 4 mg Pantoprazole Sodium (Protonix -) 40 mg PO DAILY [facility] Last Admin: 09/19/16 10:10 Dose: 40 mg Risperidone (Risperdal -) 2 mg PO BID [facility] Last Admin: 09/19/16 10:10 Dose: 2 mg Trazodone HCl (Desyrel -) 50 mg PO [facility] Last Admin: 09/18/16 23:09 Dose: 50 mg - Objective Vital Signs: Vital Signs Temperature 97.8 F 09/19/16 14:35 Pulse Rate 64 09/19/16 17:34 Respiratory Rate 18 09/19/16 17:34 Blood Pressure 86/48 09/19/16 17:34 O2 Sat by Pulse Oximetry (%) 97 09/19/16 12:12 Constitutional: Yes: Anxious Eyes: Yes: Conjunctiva Clear Cardiovascular: Yes: S1, S2 Respiratory: Yes: CTA Bilaterally Gastrointestinal: Yes: Normal Bowel Sounds, Soft Musculoskeletal: Yes: WNL Edema: Yes Neurological: Yes: Confusion Psychiatric: Yes: Agitated Labs: CBC, BMP 09/19/16 14:30 09/19/16 14:30 INR, PTT INR 0.94 (0.82-1.09) D 09/06/16 16:21 Problem List - Problems (1) Anasarca Code(s): R60.1 - GENERALIZED EDEMA (2) ESRD (end stage renal disease) on dialysis Code(s): N18.6 - END STAGE RENAL DISEASE Z99.2 - DEPENDENCE ON RENAL DIALYSIS (3) Hypotension Code(s): I95.9 - HYPOTENSION, UNSPECIFIED Qualifiers: Hypotension type: unspecified hypotension type Qualified Code(s): I95.9 - Hypotension, unspecified (4) Pleural effusion Code(s): J90 - PLEURAL EFFUSION, NOT ELSEWHERE CLASSIFIED (5) COPD (chronic obstructive pulmonary disease) Code(s): J44.9 - CHRONIC OBSTRUCTIVE PULMONARY DISEASE, UNSPECIFIED (6) Schizophrenia Code(s): F20.9 - SCHIZOPHRENIA, UNSPECIFIED (7) Bipolar 1 disorder Code(s): F31.9 - BIPOLAR DISORDER, UNSPECIFIED Assessment/Plan Current Medications Generic Name Dose Route Start Last Admin Trade Name Freq PRN Reason Stop Dose Admin Acetaminophen 650 mg 09/13/16 13:27 09/16/16 10:05 Tylenol - PO 650 mg Q6H PRN Administration PAIN Clozapine 50 mg 09/09/16 11:00 09/19/16 10:11 Clozaril - PO 50 mg BID [facility] Administration Divalproex Sodium 500 mg 09/07/16 22:00 09/18/16 23:08 Depakote *Er* - PO 500 mg HS [facility] Administration Docusate Sodium 100 mg 09/08/16 10:00 09/19/16 10:11 Colace - PO Not Given DAILY [facility] Guaifenesin 10 ml 09/07/16 19:52 09/11/16 14:04 Robitussin - PO 10 ml Q4H PRN Administration COUGH Lorazepam 1 mg 09/19/16 13:07 Ativan - PO TID PRN ANXIETY Melatonin 3 mg 09/07/16 22:00 09/18/16 22:00 Melatonin PO Not Given HS [facility]NA Multivitamins/Minerals/Vitamin C 1 tab 09/08/16 10:00 09/19/16 13:31 Tab-A-Vit - PO 1 tab DAILY [facility] Administration Ondansetron HCl 4 mg 09/15/16 19:22 09/19/16 10:09 Zofran Odt - SL 4 mg Q6H PRN Administration Pantoprazole Sodium 40 mg 09/08/16 10:00 09/19/16 10:10 Protonix - PO 40 mg DAILY [facility] Administration Risperidone 2 mg 09/09/16 10:00 09/19/16 10:10 Risperdal - PO 2 mg BID [facility] Administration Trazodone HCl 50 mg 09/07/16 22:00 09/18/16 23:09 Desyrel - PO 50 mg HS [facility] Administration Impression 1. ESRD 2. fluid overload 3. complex renal cyst 4. bipolar 5. dyspnea 6. COPD 7. pleural effusion, bilateral 8. anemia 9. anasarca 10. possible lesion on heart valve 11. pancytopenia Plan - pt tolerated - cardio input appreciated, pt refused KATHRYN - blood cultures are negative - fluid restriction, pt is not compliance - HD with UF - pt refusing thoracocentesis - pt/rehab eval - complex renal cyst will need urology follow up - will follow pt Dr Aquino
== END 2016-09-19 19:38 | DRG 640 ==
LOC: JER 15:30 → JERBED 18:12 → JICU 18:45 → J4W 09-07 22:22 → J8W 09-11 15:34 → JERBED 09-16 19:05 → J8W 09-16 19:06
PROVIDERS: ADMIT Internal Medicine; ATTEND Internal Medicine
PROC: 5A1D60Z (ICD-10-PCS; principal; 2016-09-06)
PROC: 30233N1 Transfusion of Nonautologous Red Blood Cells into Peripheral Vein, Percutaneous Approach (ICD-10-PCS; 2016-09-17)
DX: E87.79 Other fluid overload (principal); N18.6 End stage renal disease; I50.33 Acute on chronic diastolic (congestive) heart failure; I13.2 Hypertensive heart and chronic kidney disease with heart failure and with stage 5 chronic kidney disease, or end stage renal disease; J90 Pleural effusion, not elsewhere classified; J98.11 Atelectasis; D61.818 Other pancytopenia; F20.9 Schizophrenia, unspecified; F31.9 Bipolar disorder, unspecified; Z99.2 Dependence on renal dialysis; F41.9 Anxiety disorder, unspecified; E78.5 Hyperlipidemia, unspecified; I95.9 Hypotension, unspecified; E11.22 Type 2 diabetes mellitus with diabetic chronic kidney disease; Z91.15 Patient's noncompliance with renal dialysis; N28.1 Cyst of kidney, acquired; J44.9 Chronic obstructive pulmonary disease, unspecified; E66.9 Obesity, unspecified; Z68.35 Body mass index [BMI] 35.0-35.9, adult; K21.9 Gastro-esophageal reflux disease without esophagitis; I45.81 Long QT syndrome; D64.9 Anemia, unspecified
CPT/HCPCS: 36415; 36430; 71010-TC; 71250-TC; 80053; 80061; 80164; 82550; 83036; 83605; 83721; 83880; 84100; 84443; 84484; 85025; 85027; 85610; 86704; 86706; 86708; 86803; 86850; 86900; 86901; 86922; 87040; 87252; 87340; 87529; 93005; 93010; 93306-TC; 93970-TC; 94640; 97162-PG; 99285-25; J0885; J1644; J2794; P9038; P9047; P9058